=== PATIENT | male | born 1950 | race Caucasian/White ===

== ENCOUNTER 2016-12-09 06:33 | Emergency (ER) | payer BC ==
[2016-12-09 07:42] LABS: Basophils % (A) 1 %; CH 28.6; Eosinophils # (A) 0.1 k/uL (0-0.7); Eosinophils % (A) 2 %; HCT 34.1 % (39.0-53.0); HDW 3.45; HGB 11.4 gm/dL (13.0-17.5); Luc # (Auto) 0.17; Luc % (Auto) 3; Lymphocytes # (A) 0.4 k/uL (1.0-4.8); Lymphocytes % (A) 9 %; MCH 28.3 pg (25.0-35.0); MCHC 33.3 g/dL (31.0-37.0); MCV 84.8 fL (80.0-100.0); Mean Platelet Volume 6.9; Monocytes # (A) 0.6 k/uL (0-1.0); Monocytes % (A) 12 %; Neutrophils # (A) 3.5 k/uL (1.3-7.7); Neutrophils % (A) 73 %; Poikilocytosis Slight; RBC 4.02 m/uL (4.30-5.90); RDW 15.2 % (11.5-15.5); WBC 4.8 k/uL (3.8-10.6); WBC (Perox) 5.06
[2016-12-09] MEDS ORDERED: RX INFO: IV CONTRAST WAS GIVEN 1 EACH MISC MISCELLANE PRN (07:45)
[2016-12-09 07:51] LABS: ALT 44 U/L (21-72); AST 49 U/L (17-59); Alkaline Phosphatase 94 U/L (38-126); Anion Gap 13 mmol/L; Blood Urea Nitrogen 23 mg/dL (9-20); Calcium 12.2 mg/dL (8.4-10.2); Carbon Dioxide 25 mmol/L (22-30); Chloride 101 mmol/L (98-107); Glucose 114 mg/dL (74-99); Non-African American GFR(MDRD) >60 (>60 ml/min/1.73 sqM); Potassium 4.3 mmol/L (3.5-5.1); Sodium 139 mmol/L (137-145); Total Protein 6.7 g/dL (6.3-8.2)
[2016-12-09 07:55] LABS: INR 1.3 (<1.1); Prothrombin Time 12.6 sec (9.0-12.0)
[2016-12-09 08:01] LABS: Creatine Kinase 83 U/L (55-170)
[2016-12-09] MEDS ORDERED: SODIUM CHLORIDE 0.9% 1,000 ML IV STA (08:06)
--- NOTE | 2016-12-09 08:10 | ED ---
General Adult HPI - General Chief complaint: Shortness of Breath Stated complaint: Abnormal Labs/Sent by Time Seen by Provider: 12/09/16 07:44 Source: patient, RN notes reviewed, old records reviewed Mode of arrival: ambulatory Limitations: no limitations - History of Present Illness Initial comments: This is a 66-year-old male here for evaluation. Patient posteriorly for evaluation of abnormal lab tests. Patient does have history of asthma, mild obesity no history of DVT. Patient states he thinks his blood clotting level was elevated. His doctor. Patient denies chest pain denies calf pain denies lower leg pain. No travel history. No other complaints - Related Data Home Medications Medication Instructions Recorded Confirmed Budesonide/Formoterol Fumarate 2 puff INHALATION RT-BID 01/21/15 12/09/16 [Symbicort 160-4.5 Mcg Inhaler] Multivitamin [Men's Multi-Vitamin] 1 tab PO DAILY 01/21/15 12/09/16 L.acidoph,Paracasei, B.lactis 1 cap PO DAILY 07/26/16 12/09/16 [Probiotic] Tiotropium 18 Mcg/Puff [Spiriva] 1 puff INHALATION RT-DAILY 07/26/16 12/09/16 Previous Rx's Medication Instructions Recorded Aspirin 325 mg PO DAILY #30 tab 07/28/16 Atorvastatin [Lipitor] 80 mg PO HS #30 tab 07/28/16 Clopidogrel [Plavix] 75 mg PO DAILY #30 tab 07/28/16 Metoprolol Tartrate [Lopressor] 25 mg PO BID #60 tab 07/28/16 Nitroglycerin Sl Tabs [Nitrostat] 0.4 mg SUBLINGUAL Q5M PRN #25 tab 07/28/16 Allergies Allergy/AdvReac Type Severity Reaction Status Date / Time bacitracin [From Cortisporin] Allergy Anaphylaxis Verified 12/09/16 07:37 bacitracin zinc Allergy Anaphylaxis Verified 12/09/16 07:37 [From Cortisporin] hydrocortisone Allergy Swelling Verified 12/09/16 07:37 [From Cortisporin] neomycin [From Cortisporin] Allergy Swelling Verified 12/09/16 07:37 neomycin sulfate Allergy Swelling Verified 12/09/16 07:37 [From Cortisporin] polymyxin B Allergy Swelling Verified 12/09/16 07:37 [From Cortisporin] polymyxin B sulfate Allergy Swelling Verified 12/09/16 07:37 [From Cortisporin] sulfamethoxazole Allergy Unknown Verified 12/09/16 07:37 [From Bactrim] trimethoprim [From Bactrim] Allergy Unknown Verified 12/09/16 07:37 Review of Systems ROS Statement: Those systems with pertinent positive or pertinent negative responses have been documented in the HPI. ROS Other: All systems not noted in ROS Statement are negative. Past Medical History Past Medical History: Asthma, Sleep Apnea/CPAP/BIPAP Additional Past Medical History / Comment(s): leaking heart valve History of Any Multi-Drug Resistant Organisms: None Reported Past Surgical History: Ear Surgery, Heart Catheterization, Heart Catheterization With Stent, Tonsillectomy Past Anesthesia/Blood Transfusion Reactions: No Reported Reaction Past Psychological History: No Psychological Hx Reported Smoking Status: Former smoker Past Alcohol Use History: None Reported Past Drug Use History: None Reported - Past Family History Father Additional Family Medical History / Comment(s): from [facility] Mother Family Medical History: Cancer Additional Family Medical History / Comment(s): breast, bone, and brain CA, heart attack General Exam Limitations: no limitations General appearance: alert, in no apparent distress Head exam: Present: atraumatic, normocephalic, normal inspection Eye exam: Present: normal appearance, PERRL, EOMI. Absent: scleral icterus, conjunctival injection, periorbital swelling ENT exam: Present: normal exam, mucous membranes moist Neck exam: Present: normal inspection. Absent: tenderness, meningismus, lymphadenopathy Respiratory exam: Present: normal lung sounds bilaterally. Absent: respiratory distress, wheezes, rales, rhonchi, stridor Cardiovascular Exam: Present: regular rate, normal rhythm, normal heart sounds. Absent: systolic murmur, diastolic murmur, rubs, gallop, clicks GI/Abdominal exam: Present: soft, normal bowel sounds. Absent: distended, tenderness, guarding, rebound, rigid Extremities exam: Present: normal inspection, full ROM, normal capillary refill. Absent: tenderness, pedal edema, joint swelling, calf tenderness Back exam: Present: normal inspection Neurological exam: Present: alert, oriented X3, CN II-XII intact Psychiatric exam: Present: normal affect, normal mood Skin exam: Present: warm, dry, intact, normal color. Absent: rash Course Vital Signs 12/09/16 12/09/16 06:49 07:16 Temperature 98.1 F Pulse Rate 98 93 Respiratory 20 16 Rate Blood Pressure 148/70 121/66 O2 Sat by Pulse 97 96 Oximetry - Reevaluation(s) Reevaluation #1: 12/09/16 08:09 Patient is without complaint of shortness of breath chest pain or leg pain EKG Findings - EKG Comments: EKG Findings:: EKG shows normal sinus rhythm rate of 91, NE 132, QRS 80, QTC 423 Medical Decision Making - Medical Decision Making 67 mL the ER for evaluation. Patient has no complaints and femoral abscess, elevated d-dimer, CT negative for PE, patient will be discharged home - Lab Data Result diagrams: 12/09/16 07:05 12/09/16 07:05 Lab Results 12/09/16 12/09/16 12/09/16 Range/Units 07:05 07:05 07:05 WBC (3.8-10.6) k/uL RBC (4.30-5.90) m/uL Hgb (13.0-17.5) gm/dL Hct (39.0-53.0) % MCV (80.0-100.0) fL MCH (25.0-35.0) pg MCHC (31.0-37.0) g/dL RDW (11.5-15.5) % Plt Count (150-450) k/uL Neutrophils % % Lymphocytes % % Monocytes % % Eosinophils % % Basophils % % Neutrophils # (1.3-7.7) k/uL Lymphocytes # (1.0-4.8) k/uL Monocytes # (0-1.0) k/uL Eosinophils # (0-0.7) k/uL Basophils # (0-0.2) k/uL Poikilocytosis PT 12.6 H (9.0-12.0) sec INR 1.3 (<1.1) APTT 24.0 (22.0-30.0) sec D-Dimer 1.01 H (<0.60) mg/L FEU Sodium (137-145) mmol/L Potassium (3.5-5.1) mmol/L Chloride (98-107) mmol/L Carbon Dioxide (22-30) mmol/L Anion Gap mmol/L BUN (9-20) mg/dL Creatinine (0.66-1.25) mg/dL Est GFR (MDRD) Af Amer (>60 ml/min/1.73 sqM) Est GFR (MDRD) Non-Af (>60 ml/min/1.73 sqM) Glucose (74-99) mg/dL Calcium (8.4-10.2) mg/dL Total Bilirubin (0.2-1.3) mg/dL AST (17-59) U/L ALT (21-72) U/L Alkaline Phosphatase (38-126) U/L Total Creatine Kinase 83 (55-170) U/L CK-MB (CK-2) 0.9 (0.0-2.4) ng/mL CK-MB (CK-2) Rel Index 1.1 Troponin I <0.012 (0.000-0.034) ng/mL NT-Pro-B Natriuret Pep 232 pg/mL Total Protein (6.3-8.2) g/dL Albumin (3.5-5.0) g/dL 12/09/16 12/09/16 Range/Units 07:05 07:05 WBC 4.8 (3.8-10.6) k/uL RBC 4.02 L (4.30-5.90) m/uL Hgb 11.4 L (13.0-17.5) gm/dL Hct 34.1 L (39.0-53.0) % MCV 84.8 (80.0-100.0) fL MCH 28.3 (25.0-35.0) pg MCHC 33.3 (31.0-37.0) g/dL RDW 15.2 (11.5-15.5) % Plt Count 232 (150-450) k/uL Neutrophils % 73 % Lymphocytes % 9 % Monocytes % 12 % Eosinophils % 2 % Basophils % 1 % Neutrophils # 3.5 (1.3-7.7) k/uL Lymphocytes # 0.4 L (1.0-4.8) k/uL Monocytes # 0.6 (0-1.0) k/uL Eosinophils # 0.1 (0-0.7) k/uL Basophils # 0.0 (0-0.2) k/uL Poikilocytosis Slight PT (9.0-12.0) sec INR (<1.1) APTT (22.0-30.0) sec D-Dimer (<0.60) mg/L FEU Sodium 139 (137-145) mmol/L Potassium 4.3 (3.5-5.1) mmol/L Chloride 101 (98-107) mmol/L Carbon Dioxide 25 (22-30) mmol/L Anion Gap 13 mmol/L BUN 23 H (9-20) mg/dL Creatinine 1.12 (0.66-1.25) mg/dL Est GFR (MDRD) Af Amer >60 (>60 ml/min/1.73 sqM) Est GFR (MDRD) Non-Af >60 (>60 ml/min/1.73 sqM) Glucose 114 H (74-99) mg/dL Calcium 12.2 H (8.4-10.2) mg/dL Total Bilirubin 1.0 (0.2-1.3) mg/dL AST 49 (17-59) U/L ALT 44 (21-72) U/L Alkaline Phosphatase 94 (38-126) U/L Total Creatine Kinase (55-170) U/L CK-MB (CK-2) (0.0-2.4) ng/mL CK-MB (CK-2) Rel Index Troponin I (0.000-0.034) ng/mL NT-Pro-B Natriuret Pep pg/mL Total Protein 6.7 (6.3-8.2) g/dL Albumin 3.7 (3.5-5.0) g/dL - Radiology Data Radiology results: report reviewed (CTA negative for PE), image reviewed Disposition Clinical Impression: Abnormal laboratory test, Elevated d-dimer Disposition: HOME SELF-CARE Condition: Good Instructions: Normal Exam (ED) Referrals: Андрей Lino MD [Primary Care Provider] - 1-2 days
[2016-12-09 08:14] LABS: Creatine Kinase MB 0.9 ng/mL (0.0-2.4); Troponin I <0.012 ng/mL (0.000-0.034)
--- NOTE | 2016-12-09 08:19 | XR ---
EXAMINATION TYPE: XR chest 2V DATE OF EXAM: 12/09/2016 7:49 AM COMPARISON: Prior chest x-ray 26 July 2016 HISTORY: Difficulty breathing TECHNIQUE: Frontal and lateral views of the chest are obtained. FINDINGS: There are overlying cardiac leads. Exam is stable. Interstitium is mildly increased. There are prominent lung volumes. Cardiomediastinal silhouette, pulmonary vascularity and myra are within normal limits. IMPRESSION: Interstitial lung disease, correlate for possible interstitial edema.
--- NOTE | 2016-12-09 08:42 | CT ---
EXAMINATION TYPE: CT angio chest DATE OF EXAM: 12/09/2016 8:28 AM COMPARISON: 07/26/2016 HISTORY: SOB for a few months CT DLP: 701 mGycm Automated exposure control for dose reduction was used. CONTRAST: CTA scan of the thorax is performed with IV Contrast, patient injected with 74 mL of Omnipaque 350, p ulmonary embolism protocol. . FINDINGS: LUNGS: Subsegmental consolidation at both lung bases most typical of atelectasis. No pleural effusion . Underlying COPD noted. There is no pneumothorax. Calcified granuloma within the left upper lobe and right lower lobe posteriorly. MEDIASTINUM: Aorta of normal caliber. There is suboptimal enhancement of the pulmonary arteries. No c entral pulmonary embolism. Calcified lymph nodes in the hilum are noted and there is coronary artery calcification and cardiomegaly. Ascending aorta measures 3.8 cm and appears stable from previous. Tin y pericardial effusion. OTHER: Hypertrophic and degenerative change of the spine noted. Small hiatal hernia noted. Splenic g ranuloma noted. IMPRESSION: LIMITED EXAM DUE TO SUBOPTIMAL ENHANCEMENT OF PULMONARY ARTERIES. NO CENTRAL PULMONARY EMBOLUS.
[2016-12-09 09:22] VITALS: RESP 20
--- NOTE | 2016-12-09 10:11 | US ---
EXAMINATION TYPE: US venous doppler duplex LE BI DATE OF EXAM: 12/09/2016 9:46 AM COMPARISON: CT angiogram of the chest same date CLINICAL HISTORY: Pain. Elevated labs SIDE PERFORMED: Bilateral VESSELS IMAGED: External Iliac Vein (EIV) Common Femoral Vein Deep Femoral Vein Greater Saphenous Vein * Femoral Vein Popliteal Vein Proximal Calf Veins (* superficial vessels) Grayscale, color Doppler, spectral Doppler imaging performed of the deep veins of the lower extremiti es from the groin to the knee TECHNOLOGIST IMPRESSION: wnl Right Leg: Negative for DVT Left Leg: Negative for DVT Multiple enlarged hypoechoic areas with internal echoes, some internal flow see, question nodes, in l eft groin, superior to vessels.Largest measures 5.0 x 4.4 x 2.6 cm. Note is made on previous CT of splenic enlargement. IMPRESSION: No evident deep venous thrombosis. Splenic enlargement, enlarged left groin lymph nodes, correlate for possible lymphoma, leukemia, metastatic disease. Report related to Natalia telephonically 09 December 2016 at 1005 hours in the emergency department
[2016-12-09 10:45] VITALS: BP 113/70; PULSE 87; TEMP 97
== END 2016-12-09 10:15 | disposition home or self-care (01) ==
LOC: EC 06:33
DX: R79.1 Abnormal coagulation profile (principal); Z79.51 Long term (current) use of inhaled steroids; Z79.899 Other long term (current) drug therapy; Z88.2 Allergy status to sulfonamides; Z88.8 Allergy status to other drugs, medicaments and biological substances; J45.909 Unspecified asthma, uncomplicated; G47.30 Sleep apnea, unspecified; Z87.891 Personal history of nicotine dependence
CPT/HCPCS: 36415; 93005; 85379; 83880; 80053; 82550; 82553; 84484; 85025; 85610; 85730; 71020; 93970; 71275; 96360; 96361; 99285; Q9967

== ENCOUNTER → 2016-12-15 | Outpatient (CLI) | payer BC ==
--- NOTE | 2016-12-15 16:47 | CT ---
EXAMINATION TYPE: CT angio chest DATE OF EXAM: 12/15/2016 4:35 PM COMPARISON: CTA chest December 09, 2016 HISTORY: pt states of SOB and weakness. Hx of stents. CT DLP: 1258.8 mGycm. Automated Exposure Control for Dose Reduction was Utilized. CONTRAST: CTA scan of the thorax is performed without and with IV Contrast, patient injected with 70 mL of Omni paque 350, pulmonary embolism protocol. MIP Images are created on CT scanner and reviewed. FINDINGS: LUNGS: Dependent atelectasis is seen in both lower lobes. No suspicious noncalcified parenchymal nod ule or mass is present bilaterally. Some calcified nodules in the medial left lung base are redemonst rated. There is no pleural effusion or pneumothorax seen bilaterally. The tracheobronchial tree is p atent. Mild underlying emphysematous change is felt redemonstrated. MEDIASTINUM: There is once again suboptimal central bolus without large saddle pulmonary embolism, sm aller segmental subsegmental PE cannot be excluded on this exam. Fairly equal contrast is seen in rig ht and left heart systems. There are no greater than 1 cm noncalcified hilar or mediastinal lymph no miles. There is redemonstration of prominent calcified subcarinal lymph nodes. There are additional mar cified subcentimeter left hilar and infrahilar as well as distal right hilar lymph nodes redemonstrat ed. No cardiomegaly or pericardial effusion is seen. Main pulmonary artery measures 2.3 cm diameter on axial image 53. Adjacent ascending aorta measures 3.7 cm in diameter. Coronary artery calcificatio n and/or stents is redemonstrated. OTHER: There is occasional calcification in the spleen. Multilevel spurring in the spine is present. IMPRESSION: Similar to the prior exam suboptimal study without large central pulmonary embolism, smal ler segmental PE cannot be excluded on this exam. There is mild emphysematous change with evidence of old granulomatous disease. There is ectasia/mild aneurysmal change of the ascending aorta redemonstr ated felt stable. No new acute pulmonary process is evident.
== END | disposition home or self-care (01) ==
LOC: RADCTMAIN 15:29
PROVIDERS: ATTEND Nurse Practitioner Family
DX: J43.9 Emphysema, unspecified (principal)
CPT/HCPCS: 71275; Q9967

== ENCOUNTER 2016-12-25 23:26 | Observation (INO) | payer BC, MEDICARE ==
[2016-12-25] MEDS ORDERED: NITROGLYCERIN SL TABS 0.4 MG TAB SUBLINGUAL STA ×3 (23:45)
[2016-12-25] MEDS ORDERED: ASPIRIN 81 MG CHEW PO STA (23:45)
--- NOTE | 2016-12-25 23:57 | ED ---
General Adult HPI - General Chief complaint: Chest Pain Stated complaint: chest pain Time Seen by Provider: 12/25/16 23:42 Source: patient, RN notes reviewed Mode of arrival: ambulatory Limitations: no limitations - History of Present Illness Initial comments: Patient is a pleasant 66-year-old male presenting to the emergency Department with complaints of chest discomfort onset was this afternoon. Symptoms have been waxing and waning. Discomfort became more severe prior to arrival. Discomfort was 7/10 and improved to 5/10 following one nitroglycerin. Discomfort is without radiation however patient does have some tingling of his left fingers. Patient does have a some associated dyspnea. Patient was diaphoretic prior to arrival. Patient did have somewhat similar symptoms previously associated with stent placement. - Related Data Home Medications Medication Instructions Recorded Confirmed Budesonide/Formoterol Fumarate 2 puff INHALATION RT-BID 01/21/15 12/25/16 [Symbicort 160-4.5 Mcg Inhaler] Multivitamin [Men's Multi-Vitamin] 1 tab PO DAILY 01/21/15 12/25/16 L.acidoph,Paracasei, B.lactis 1 cap PO DAILY 07/26/16 12/25/16 [Probiotic] Tiotropium 18 Mcg/Puff [Spiriva] 1 puff INHALATION RT-DAILY 07/26/16 12/25/16 Previous Rx's Medication Instructions Recorded Aspirin 325 mg PO DAILY #30 tab 07/28/16 Atorvastatin [Lipitor] 80 mg PO HS #30 tab 07/28/16 Clopidogrel [Plavix] 75 mg PO DAILY #30 tab 07/28/16 Metoprolol Tartrate [Lopressor] 25 mg PO BID #60 tab 07/28/16 Nitroglycerin Sl Tabs [Nitrostat] 0.4 mg SUBLINGUAL Q5M PRN #25 tab 07/28/16 Allergies Allergy/AdvReac Type Severity Reaction Status Date / Time bacitracin [From Cortisporin] Allergy Anaphylaxis Verified 12/25/16 23:31 bacitracin zinc Allergy Anaphylaxis Verified 12/25/16 23:31 [From Cortisporin] hydrocortisone Allergy Swelling Verified 12/25/16 23:31 [From Cortisporin] neomycin [From Cortisporin] Allergy Swelling Verified 12/25/16 23:31 neomycin sulfate Allergy Swelling Verified 12/25/16 23:31 [From Cortisporin] polymyxin B Allergy Swelling Verified 12/25/16 23:31 [From Cortisporin] polymyxin B sulfate Allergy Swelling Verified 12/25/16 23:31 [From Cortisporin] sulfamethoxazole Allergy Unknown Verified 12/25/16 23:31 [From Bactrim] trimethoprim [From Bactrim] Allergy Unknown Verified 12/25/16 23:31 Review of Systems ROS Statement: Those systems with pertinent positive or pertinent negative responses have been documented in the HPI. ROS Other: All systems not noted in ROS Statement are negative. Constitutional: Denies: fever Eyes: Denies: eye pain ENT: Denies: ear pain Respiratory: Reports: dyspnea Cardiovascular: Reports: chest pain Endocrine: Denies: fatigue Gastrointestinal: Denies: abdominal pain Genitourinary: Denies: dysuria Musculoskeletal: Denies: back pain Skin: Denies: rash Neurological: Denies: weakness Past Medical History Past Medical History: Asthma, Sleep Apnea/CPAP/BIPAP Additional Past Medical History / Comment(s): leaking heart valve History of Any Multi-Drug Resistant Organisms: None Reported Past Surgical History: Ear Surgery, Heart Catheterization, Heart Catheterization With Stent, Tonsillectomy Past Anesthesia/Blood Transfusion Reactions: No Reported Reaction Past Psychological History: No Psychological Hx Reported Smoking Status: Former smoker Past Alcohol Use History: None Reported Past Drug Use History: None Reported - Past Family History Father Additional Family Medical History / Comment(s): [place] [facility] [place] Mother Family Medical History: Cancer Additional Family Medical History / Comment(s): breast, bone, and brain CA, heart attack General Exam Limitations: no limitations General appearance: alert, in no apparent distress Head exam: Present: atraumatic Eye exam: Present: normal appearance, PERRL ENT exam: Present: normal oropharynx Neck exam: Present: normal inspection Respiratory exam: Present: normal lung sounds bilaterally. Absent: chest wall tenderness Cardiovascular Exam: Present: regular rate, normal rhythm, systolic murmur Expanded Peripheral pulses: 2+: Radial (R), Radial (L), Posterior Tibialis (R), Posterior Tibialis (L) GI/Abdominal exam: Present: soft. Absent: distended, tenderness, guarding Extremities exam: Present: normal inspection. Absent: pedal edema, calf tenderness Neurological exam: Present: alert Psychiatric exam: Present: normal affect, normal mood Skin exam: Absent: rash Course Vital Signs 12/25/16 12/26/16 12/26/16 23:29 00:01 00:14 Temperature 97.9 F Pulse Rate 99 92 106 H Respiratory 22 18 20 Rate Blood Pressure 127/73 97/60 88/50 O2 Sat by Pulse 95 97 95 Oximetry EKG Findings - EKG Comments: EKG Findings:: Sinus rhythm and 92. MI 126. QRS 84. QT 348. QTC 4:30. Normal axis. Normal QRS. No acute ST change. Medical Decision Making - Medical Decision Making Patient reevaluated and resting comfortably in bed. Patient now symptom-free. Patient updated on results and plan. Case was discussed in detail with Dr. ashford, who will admit for Dr. Lino. Admission orders placed. IV heparin started. Consult will be placed for cardiology. - Lab Data Result diagrams: 12/26/16 00:01 12/26/16 00:01 Lab Results 12/26/16 12/26/16 12/26/16 Range/Units 00:01 00:01 00:01 WBC 5.2 (3.8-10.6) k/uL RBC 4.30 (4.30-5.90) m/uL Hgb 12.1 L (13.0-17.5) gm/dL Hct 36.3 L (39.0-53.0) % MCV 84.4 (80.0-100.0) fL MCH 28.1 (25.0-35.0) pg MCHC 33.3 (31.0-37.0) g/dL RDW 15.0 (11.5-15.5) % Plt Count 194 (150-450) k/uL Neutrophils % 81 % Lymphocytes % 6 % Monocytes % 7 % Eosinophils % 2 % Basophils % 1 % Neutrophils # 4.2 (1.3-7.7) k/uL Lymphocytes # 0.3 L (1.0-4.8) k/uL Monocytes # 0.4 (0-1.0) k/uL Eosinophils # 0.1 (0-0.7) k/uL Basophils # 0.0 (0-0.2) k/uL Poikilocytosis Slight PT (9.0-12.0) sec INR (<1.1) APTT (22.0-30.0) sec Sodium 138 (137-145) mmol/L Potassium 3.7 (3.5-5.1) mmol/L Chloride 100 (98-107) mmol/L Carbon Dioxide 25 (22-30) mmol/L Anion Gap 13 mmol/L BUN 31 H (9-20) mg/dL Creatinine 1.40 H (0.66-1.25) mg/dL Est GFR (MDRD) Af Amer >60 (>60 ml/min/1.73 sqM) Est GFR (MDRD) Non-Af 51 (>60 ml/min/1.73 sqM) Glucose 110 H (74-99) mg/dL Calcium 12.2 H (8.4-10.2) mg/dL Magnesium 1.9 (1.6-2.3) mg/dL Total Bilirubin 0.9 (0.2-1.3) mg/dL AST 46 (17-59) U/L ALT 43 (21-72) U/L Alkaline Phosphatase 91 (38-126) U/L Total Creatine Kinase 53 L (55-170) U/L CK-MB (CK-2) 1.4 (0.0-2.4) ng/mL CK-MB (CK-2) Rel Index 2.6 Troponin I 0.015 (0.000-0.034) ng/mL Total Protein 6.0 L (6.3-8.2) g/dL Albumin 3.2 L (3.5-5.0) g/dL 12/26/16 Range/Units 00:01 WBC (3.8-10.6) k/uL RBC (4.30-5.90) m/uL Hgb (13.0-17.5) gm/dL Hct (39.0-53.0) % MCV (80.0-100.0) fL MCH (25.0-35.0) pg MCHC (31.0-37.0) g/dL RDW (11.5-15.5) % Plt Count (150-450) k/uL Neutrophils % % Lymphocytes % % Monocytes % % Eosinophils % % Basophils % % Neutrophils # (1.3-7.7) k/uL Lymphocytes # (1.0-4.8) k/uL Monocytes # (0-1.0) k/uL Eosinophils # (0-0.7) k/uL Basophils # (0-0.2) k/uL Poikilocytosis PT 12.5 H (9.0-12.0) sec INR 1.3 (<1.1) APTT 23.6 (22.0-30.0) sec Sodium (137-145) mmol/L Potassium (3.5-5.1) mmol/L Chloride (98-107) mmol/L Carbon Dioxide (22-30) mmol/L Anion Gap mmol/L BUN (9-20) mg/dL Creatinine (0.66-1.25) mg/dL Est GFR (MDRD) Af Amer (>60 ml/min/1.73 sqM) Est GFR (MDRD) Non-Af (>60 ml/min/1.73 sqM) Glucose (74-99) mg/dL Calcium (8.4-10.2) mg/dL Magnesium (1.6-2.3) mg/dL Total Bilirubin (0.2-1.3) mg/dL AST (17-59) U/L ALT (21-72) U/L Alkaline Phosphatase (38-126) U/L Total Creatine Kinase (55-170) U/L CK-MB (CK-2) (0.0-2.4) ng/mL CK-MB (CK-2) Rel Index Troponin I (0.000-0.034) ng/mL Total Protein (6.3-8.2) g/dL Albumin (3.5-5.0) g/dL - Radiology Data Radiology results: image reviewed (Chest x-ray shows no acute process) Critical Care Time Critical Care Time: Yes Total Critical Care Time: 32 Disposition Clinical Impression: Unstable angina pectoris Disposition: ADMITTED IP TO THIS HOSP
[2016-12-26 00:16] LABS: Basophils % (A) 1 %; CH 28.2; CHCM 33.6; Eosinophils # (A) 0.1 k/uL (0-0.7); Eosinophils % (A) 2 %; HCT 36.3 % (39.0-53.0); HGB 12.1 gm/dL (13.0-17.5); Luc % (Auto) 4; Lymphocytes # (A) 0.3 k/uL (1.0-4.8); Lymphocytes % (A) 6 %; MCH 28.1 pg (25.0-35.0); MCHC 33.3 g/dL (31.0-37.0); MCV 84.4 fL (80.0-100.0); Mean Platelet Volume 7.2; Monocytes # (A) 0.4 k/uL (0-1.0); Monocytes % (A) 7 %; Neutrophils # (A) 4.2 k/uL (1.3-7.7); Neutrophils % (A) 81 %; Poikilocytosis Slight; WBC 5.2 k/uL (3.8-10.6); WBC (Perox) 5.01
[2016-12-26 00:26] LABS: INR 1.3 (<1.1); Partial Thromboplastin Time 23.6 sec (22.0-30.0); Prothrombin Time 12.5 sec (9.0-12.0)
--- NOTE | 2016-12-26 00:35 | XR ---
EXAMINATION TYPE: XR chest 2V DATE OF EXAM: 12/26/2016 12:21 AM COMPARISON: 12/09/2016 HISTORY: Chest pain TECHNIQUE: Frontal and lateral views of the chest are obtained. FINDINGS: Stable chronic interstitial lung changes are suggested. There is no focal air space opacity, pleural effusion, or pneumothorax seen. The cardiac silhouette size is within normal limits. Mild degenerative changes in the thoracic spine. IMPRESSION: 1. No acute cardiopulmonary process. 2. Chronic lung changes.
[2016-12-26 00:37] LABS: ALT 43 U/L (21-72); AST 46 U/L (17-59); Alkaline Phosphatase 91 U/L (38-126); Anion Gap 13 mmol/L; Blood Urea Nitrogen 31 mg/dL (9-20); Calcium 12.2 mg/dL (8.4-10.2); Carbon Dioxide 25 mmol/L (22-30); Chloride 100 mmol/L (98-107); Glucose 110 mg/dL (74-99); Magnesium 1.9 mg/dL (1.6-2.3); Non-African American GFR(MDRD) 51 (>60 ml/min/1.73 sqM); Potassium 3.7 mmol/L (3.5-5.1); Sodium 138 mmol/L (137-145); Total Bilirubin 0.9 mg/dL (0.2-1.3)
[2016-12-26 01:01] LABS: Creatine Kinase MB 1.4 ng/mL (0.0-2.4); Troponin I 0.015 ng/mL (0.000-0.034)
[2016-12-26] MEDS ORDERED: HEPARIN SODIUM,PORCINE 5,000 UNIT/ML 1 ML VIAL IV PRN (01:14)
[2016-12-26] MEDS ORDERED: HEPARIN SODIUM,PORCINE 5,000 UNIT/ML 1 ML VIAL IV ONE (01:14)
[2016-12-26] MEDS ORDERED: NITROGLYCERIN SL TABS 0.4 MG TAB SUBLINGUAL PRN (01:14)
[2016-12-26] MEDS ORDERED: HEPARIN SODIUM,PORCINE/D5W PMX 25,000 UNIT in DEXTROSE/WATER 1 500ML.BAG IV SCH (01:15)
[2016-12-26 03:38] VITALS: RESP 18
[2016-12-26 03:44] VITALS: PULSE 100; BMI 42.2
[2016-12-26] MEDS: NITROGLYCERIN OINT 1 INCH/GM PACKET TOPICAL SCH ×3 (03:49→16:35)
[2016-12-26 06:45] LABS: Mean Platelet Volume 7.2
[2016-12-26 07:23] LABS: Creatine Kinase MB 1.1 ng/mL (0.0-2.4); Troponin I 0.026 ng/mL (0.000-0.034)
[2016-12-26] MEDS ORDERED: REGADENOSON 0.4 MG/5 ML SYRINGE IV ONE (08:00)
[2016-12-26] MEDS ORDERED: AMINOPHYLLINE 500 MG/20 ML VIAL IV PRN (08:00)
--- NOTE | 2016-12-26 08:33 | CONS ---
DATE OF CONSULTATION: CHIEF COMPLAINT: Chest pain. Philip is a 66-year-old gentleman with history of coronary artery disease, status post angioplasty of circumflex coronary artery who presented to the hospital complaining of chest pain. His chest discomfort is sharp, precordial without definite radiation to neck, arm or back, unassociated with diaphoresis and unrelated to exertion. EKG does not reveal ischemic changes. His chest x-ray was negative. I reviewed his prior cardiac catheterization and angioplasty that were done by Dr. Cohen. At the time of my evaluation, patient is comfortable at rest and is free of symptoms. Past medical history is significant for coronary artery disease, status post angioplasty, hypertension, dyslipidemia, COPD. Current medications include DuoNeb, Lopressor 25 b.i.d., Nitrostat, Spiriva, multivitamin, Plavix, Symbicort, Lipitor and aspirin. ALLERGIES: THERE ARE MULTIPLE DRUG ALLERGIES INCLUDING BACTRIM AND CORTISPORIN. FAMILY HISTORY: Negative for premature coronary artery disease. SOCIAL HISTORY: Negative for smoking, EtOH abuse, or drug abuse. REVIEW OF SYSTEMS: HEENT: Unremarkable. CARDIAC: As described above. RESPIRATORY: Negative. GI: Negative. GENITOURINARY: Negative. ALLERGY/IMMUNOLOGY: Negative. MUSCULOSKELETAL: Significant for arthritis. PSYCHOSOCIAL: Negative. ENDOCRINE: Negative. DERMATOLOGY: Negative. CONSTITUTIONAL: Negative. ONCOLOGICAL: Negative. The rest of the system review is not relevant. On exam, comfortable at rest. Vital signs are stable. There is no jugular venous distention. Carotid upstroke is normal. There is no bruit. Chest exam reveals good air entry bilaterally. Heart exam reveals first and second heart sounds. No gallop. No murmur, no rub. Abdomen is soft, nontender. Exam of extremities did not reveal edema. Peripheral pulses are felt. Labs show that the BUN is 31, creatinine is 1.4. Two sets of tropes are negative. Hemoglobin is normal at 12.1. ASSESSMENT: 1. Chest pain. 2. Coronary artery disease, status post angioplasty. 3. Hypertension. 4. Dyslipidemia. PLAN: Patient's chest discomfort is atypical and probably noncardiac in origin. His management is going to be in the form of a stress test today. If this is abnormal, he will undergo cardiac catheterization. If this is normal, he will be discharged home and outpatient follow-up arranged with his primary machinist 2nd shift.
[2016-12-26] MEDS ORDERED: METOPROLOL TARTRATE 25 MG TAB PO SCH (09:00)
[2016-12-26] MEDS ORDERED: CLOPIDOGREL 75 MG TAB PO SCH (09:00)
--- NOTE | 2016-12-26 10:56 | ECHOF ---
Referral Reason: MEASUREMENTS -------- HEIGHT: 170.2 cm WEIGHT: 122.0 kg BP: 95/45 RVIDd: 3.6 cm (< 3.3) IVSd: 1.5 cm (0.6 - 1.1) LVIDd: 4.5 cm (3.9 - 5.3) LVPWd: 1.5 cm (0.6 - 1.1) IVSs: 1.9 cm LVIDs: 2.8 cm LVPWs: 1.4 cm LA Diam: 3.5 cm (2.7 - 3.8) LAESV Index (A-L): 26.24 ml/m Ao Diam: 3.7 cm (2.0 - 3.7) AV Cusp: 1.7 cm (1.5 - 2.6) MV EXCURSION: 13.883 mm (> 18.000) MV EF SLOPE: 21 mm/s (70 - 150) EPSS: 0.7 cm AV maxP.56 mmHg AV meanP.01 mmHg AR PHT: 597 ms RAP: 5.00 mmHg RVSP: 27.81 mmHg FINDINGS -------- Sinus rhythm. This was a technically difficult study with suboptimal views. The left ventricular size is normal. There is moderate concentric left ventricular hypertrophy. Overall left ventricular systolic function is normal with, an EF between 60 - 65 %. The right ventricle is mildly enlarged. Normal LA size by volume 22+/-6 ml/m2. The right atrium is normal in size. 1.5mg of Definity was utilized for enhancement of images Aortic valve is trileaflet and is moderately thickened. There is moderate aortic regurgitation. There is moderate aortic stenosis present. Peak/mean gradient across the Aortic Valve is 35.56mmHg / 19.01mmHg. Mild mitral annular calcification present. Mild tricuspid regurgitation present. Right ventricular systolic pressure is normal at < 35 mmHg. The pulmonic valve was not well visualized. The aortic root is dilated measuring 3.7cm. There is no pericardial effusion. CONCLUSIONS -------- 1. Sinus rhythm. 2. There is moderate aortic regurgitation. 3. There is moderate aortic stenosis present. 4. Peak/mean gradient across the Aortic Valve is 35.56mmHg / 19.01mmHg. 5. Mild mitral annular calcification present. 6. Mild tricuspid regurgitation present. 7. Right ventricular systolic pressure is normal at < 35 mmHg. 8. The pulmonic valve was not well visualized. 9. The aortic root is dilated measuring 3.7cm. 10. There is no pericardial effusion. 11. This was a technically difficult study with suboptimal views. 12. The left ventricular size is normal. 13. There is moderate concentric left ventricular hypertrophy. 14. Overall left ventricular systolic function is normal with, an EF between 60 - 65 %. 15. The right ventricle is mildly enlarged. 16. Normal LA size by volume 22+/-6 ml/m2. 17. 1.5mg of Definity was utilized for enhancement of images 18. Aortic valve is trileaflet and is moderately thickened. SAP TECHNICAL ARCHITECT: Sallie Carr RDCS
--- NOTE | 2016-12-26 13:24 | NM ---
EXAMINATION TYPE: NM stress lexiscan cardiolite DATE OF EXAM: 12/26/2016 12:51 PM COMPARISON: 01/22/2015 HISTORY: Chest pain TECHNIQUE: After the intravenous administration of 10.9 mCi Tc 99m Sestamibi - Cardiolite resting SP ECT images acquired 62 minutes post injection. The patient received 0.4mg Lexiscan, 27.5 mCi Tc 99m Sestamibi - Stress images obtained [address] injection FINDINGS: Review of stress and rest SPECT images demonstrates no distinct perfusion abnormality. Gated analysi s shows normal wall motion with an estimated left ventricular ejection fraction of 65 %. IMPRESSION: No scintigraphic evidence for reversible ischemia.
[2016-12-26 13:43] VITALS: TEMP 97.6
--- NOTE | 2016-12-26 13:58 | EST ---
DATE OF SERVICE: 12/26/2016 AGE: 66Y SEX: M HT: 67" WT: 269 lbs. Protocol Fred: Other: Lexiscan Cardiolite Stage: Dur. of Exercise: *Heart Rate Blood Pressure *Rest: 93 Rest: 165/49 * *Max. Achieved: 118 Maximum BP: 165/49 85% PMHR: 100% PMHR: *METS: INDICATION OF THE STUDY: Chest pain. MEDICATIONS: STRESS DATA: Pretesting physical examination showed a heart rate of 93, pressure is 165/49 mmHg. Baseline EKG showed sinus rhythm. 0.4 mg of Lexiscan was given to the patient over 15 seconds per protocol. Max heart rate was 118 beats per minute and maximum blood pressure was 165/49 mmHg. Clinically, the patient did not have any symptoms and the EKG did not show any ischemic changes. CONCLUSION: 1. Nondiagnostic electrocardiogram stress test in response to Lexiscan. 2. Please follow up on the Cardiolite portion on a separate report from the radiology department.
[2016-12-26 14:39] LABS: Creatine Kinase MB 0.9 ng/mL (0.0-2.4); Troponin I 0.017 ng/mL (0.000-0.034)
[2016-12-26] MEDS ORDERED: TIOTROPIUM 18 MCG/PUFF INHALER INHALATION SCH (15:00)
--- NOTE | 2016-12-26 17:02 | HP ---
DATE OF ADMISSION: 12/26/2016 PRESENTING COMPLAINT: Chest pain. HISTORY OF PRESENTING COMPLAINT: This is a 66-year-old patient of Dr. Lino whose chronic stable medical conditions include asthma, sleep apnea, coronary artery with stent in July of last year. Patient presented with pressure in the chest and numbness going down the left arm towards the head, some short of breath. No perspiration. It lasted for a while; hence, patient decided to come and diagnosed with unstable angina. REVIEW OF SYSTEMS: CONSTITUTIONAL: None. HEENT: None. RESPIRATORY: As above. CARDIOVASCULAR: As above. GASTROINTESTINAL: None. GENITOURINARY: None. MUSCULOSKELETAL: None. DERMATOLOGICAL: None. HEMATOLOGICAL: None. LYMPHATIC: None. PSYCHIATRY: None. NEUROLOGICAL: None. PAST MEDICAL HISTORY: Asthma, sleep apnea, coronary artery disease. PAST SURGICAL HISTORY: Cardiac cath with stent, tonsillectomy, ear surgery. SOCIAL HISTORY: The patient stopped smoking over 40 years ago. . No alcohol. Family history of breast, bone and brain cancer, heart attacks. HOME MEDICATIONS: 1. Spiriva 1 capsule p.o. daily. 2. Nitrostat 0.4 sublingual q.5 p.r.n. 3. Men's multivitamin 1 tablet p.o. daily. 4. Lopressor 25 mg p.o. b.i.d. 5. Probiotic 1 capsule p.o. daily. 6. DuoNeb q.4 p.r.n. 7. Plavix 75 mg p.o. daily. 8. Symbicort 160/4.5, 2 puffs b.i.d. 9. Lipitor 80 mg q.h.s. 10. Aspirin 325 p.o. daily. ALLERGIES TO BACITRACIN, NEOMYCIN, BACTRIM. On examination, temperature afebrile, pulse 92, respirations 18, blood pressure 123/56, pulse ox 96% on 2 liters. GENERAL APPEARANCE: Obese, BMI of 42.2, lying in bed, not in distress. EYES: Pupils equal. Conjunctivae normal. HEENT: Oral cavity normal. NECK: JVD not raised. Mass not palpable. RESPIRATORY: Effort normal. Lungs are clear. CARDIOVASCULAR: First and second sounds are normal. No edema. ABDOMEN: Soft. Nontender. Liver and spleen not palpable. LYMPHATIC: No lymph nodes palpable in neck or axillae. PSYCHIATRY: Alert and oriented x3. Mood and affect normal. NEUROLOGICAL: Pupils equal. Cranial nerves grossly intact. Power and sensation grossly intact. INVESTIGATIONS: BUN 31, creatinine 1.40, potassium 3.7, hemoglobin 12.1. EKG normal sinus rhythm and nonspecific changes. 2-D echocardiogram, ejection fraction 60 to 65%. ASSESSMENT: 1. Unstable angina, possibly in a patient with known coronary artery disease. 2. Morbid obesity, body mass index of 42.2. 3. Coronary artery disease with prior history of stent. 4. Gastroesophageal reflux disease. 5. Mild persistent asthma. 6. Essential hypertension. PLAN: Patient's home medications are resumed. Patient is put on IV heparin. Cardiology was consulted. Ordered a stress test. Patient's serial cardiac enzymes were ordered.
[2016-12-26 17:21] VITALS: BP 108/69
[2016-12-26] MEDS ORDERED: SYMBICORT 160-4.5 MCG INHALER INHALATION SCH (20:00)
[2016-12-26] MEDS ORDERED: ATORVASTATIN 80 MG TAB PO SCH (21:00)
[2016-12-27] MEDS ORDERED: TIOTROPIUM 18 MCG/PUFF INHALER INHALATION SCH (08:00)
[2016-12-27] MEDS ORDERED: ASPIRIN 325 MG TAB PO SCH (09:00)
--- NOTE | 2016-12-27 11:35 | DS ---
DATE OF ADMISSION: 12/26/2016 DATE OF DISCHARGE: 12/26/2016 FINAL DIAGNOSES: 1. Anterior chest wall pain, possibly musculoskeletal. 2. Morbid obesity, body mass index of 42.2. 3. Coronary artery disease, prior history of stent. 4. Gastroesophageal reflux disease. 5. Mild persistent asthma. 6. Essential hypertension. HOSPITAL COURSE: This patient presented with chest pain. Stress test was negative. Troponins were negative. On exam, lungs are clear. CARDIOVASCULAR: First and second sounds normal. A 2-D echocardiogram shows a EF of 60% to 65%. CONSULTATION: Dr. Sparkle Rogel from cardiology. DISCHARGE MEDICATIONS: 1. Symbicort 160/4.5 two puff b.i.d. 2. Multivitamin 1 tablet p.o. daily. 3. Probiotic 1 capsule p.o. daily. 4. Spiriva 1 capsule p.o. daily. 5. Aspirin 325 daily. 6. Lipitor 80 mg p.o. q.h.s. 7. Plavix 75 mg p.o. daily. 8. Lopressor 25 mg p.o. b.i.d. 9. Nitrostat 0.4 sublingual q.5 p.r.n. 10. DuoNeb q.4 p.r.n. Follow up with Dr. Lino in 2 days. Follow up with his cook soup in one week.
== END 2016-12-26 17:35 | disposition home or self-care (01) ==
LOC: EC 23:26 → 6SEL 12-26 01:14
PROVIDERS: ADMIT Hospitalist; ATTEND Hospitalist
DX: R07.89 Other chest pain (principal); E66.01 Morbid (severe) obesity due to excess calories; Z68.41 Body mass index [BMI] 40.0-44.9, adult; E78.5 Hyperlipidemia, unspecified; G47.30 Sleep apnea, unspecified; I10 Essential (primary) hypertension; I25.10 Atherosclerotic heart disease of native coronary artery without angina pectoris; J44.9 Chronic obstructive pulmonary disease, unspecified; J45.30 Mild persistent asthma, uncomplicated; K21.9 Gastro-esophageal reflux disease without esophagitis; Z79.02 Long term (current) use of antithrombotics/antiplatelets; Z79.82 Long term (current) use of aspirin; Z87.891 Personal history of nicotine dependence; Z95.5 Presence of coronary angioplasty implant and graft; R20.2 Paresthesia of skin; R61 Generalized hyperhidrosis; Z79.51 Long term (current) use of inhaled steroids; Z79.899 Other long term (current) drug therapy; Z88.1 Allergy status to other antibiotic agents; Z88.8 Allergy status to other drugs, medicaments and biological substances
CPT/HCPCS: 36415; 93005; 93017; 93306; 80053; 82550; 82553; 83735; 84484; 85025; 85049; 85610; 85730; 71020; 78452; 99291; 96365; 96376; G0378; A9500; J1644 ×2; Q9957; J2785

== ENCOUNTER 2017-01-02 06:09 | Inpatient (IN) | payer MEDICARE, BC ==
[2017-01-02 06:53] LABS: Basophils % (A) 1 %; CH 28.2; CHCM 34.1; Eosinophils # (A) 0.1 k/uL (0-0.7); Eosinophils % (A) 1 %; HDW 3.63; HGB 12.5 gm/dL (13.0-17.5); Luc # (Auto) 0.19; Luc % (Auto) 4; Lymphocytes # (A) 0.2 k/uL (1.0-4.8); Lymphocytes % (A) 4 %; MCH 28.2 pg (25.0-35.0); MCHC 33.8 g/dL (31.0-37.0); MCV 83.2 fL (80.0-100.0); Mean Platelet Volume 7.9; Monocytes # (A) 0.4 k/uL (0-1.0); Monocytes % (A) 9 %; Neutrophils # (A) 4.1 k/uL (1.3-7.7); Neutrophils % (A) 82 %; Poikilocytosis Slight; RBC 4.44 m/uL (4.30-5.90); RDW 15.5 % (11.5-15.5); WBC 5.1 k/uL (3.8-10.6); WBC (Perox) 4.79
[2017-01-02 07:03] LABS: INR 1.4 (<1.1); Partial Thromboplastin Time 22.2 sec (22.0-30.0); Prothrombin Time 13.8 sec (9.0-12.0)
[2017-01-02 07:04] LABS: ALT 37 U/L (21-72); AST 50 U/L (17-59); Alkaline Phosphatase 88 U/L (38-126); Anion Gap 11 mmol/L; Blood Urea Nitrogen 31 mg/dL (9-20); Carbon Dioxide 26 mmol/L (22-30); Chloride 100 mmol/L (98-107); Glucose 115 mg/dL (74-99); Magnesium 2.1 mg/dL (1.6-2.3); Non-African American GFR(MDRD) >60 (>60 ml/min/1.73 sqM); Potassium 3.9 mmol/L (3.5-5.1); Sodium 137 mmol/L (137-145); Total Bilirubin 1.2 mg/dL (0.2-1.3); Total Protein 6.3 g/dL (6.3-8.2)
[2017-01-02 07:21] LABS: Calcium 14.8 mg/dL (8.4-10.2)
[2017-01-02 07:26] LABS: Creatine Kinase MB 0.8 ng/mL (0.0-2.4); Troponin I 0.024 ng/mL (0.000-0.034)
[2017-01-02] MEDS ORDERED: SODIUM CHLORIDE 0.9% 500 ML IV ONE (07:40)
--- NOTE | 2017-01-02 07:41 | ED ---
Weakness HPI - General Chief complaint: Weakness Stated complaint: weakness Time Seen by Provider: 01/02/17 07:03 Source: patient, EMS Mode of arrival: EMS - History of Present Illness Initial comments: He tripped and fell at home, he was unable to get up and finally with assistance he did get him now complaining about pain and pain in his both knees and pain is both hips, prior to fall he denied any headache no chest pain or shortness of breath no abdominal pain no frequency urgency dysuria he does use a walker inside the house and now he is his wheelchair he tripped over readmitted now is complaining about the pain in the both knees and the pain in the both hips no other complaints - Related Data Home Medications Medication Instructions Recorded Confirmed Budesonide/Formoterol Fumarate 2 puff INHALATION RT-BID 01/21/15 12/26/16 [Symbicort 160-4.5 Mcg Inhaler] Multivitamin [Men's Multi-Vitamin] 1 tab PO DAILY 01/21/15 12/26/16 L.acidoph,Paracasei, B.lactis 1 cap PO DAILY 07/26/16 12/26/16 [Probiotic] Tiotropium 18 Mcg/Puff [Spiriva] 1 cap INHALATION RT-DAILY 07/26/16 12/26/16 Ipratropium-Albuterol Nebulize 3 ml INHALATION RT-Q4H PRN 12/26/16 12/26/16 [Duoneb 0.5 mg-3 mg/3 ml Soln] Previous Rx's Medication Instructions Recorded Aspirin 325 mg PO DAILY #30 tab 07/28/16 Atorvastatin [Lipitor] 80 mg PO HS #30 tab 07/28/16 Clopidogrel [Plavix] 75 mg PO DAILY #30 tab 07/28/16 Metoprolol Tartrate [Lopressor] 25 mg PO BID #60 tab 07/28/16 Nitroglycerin Sl Tabs [Nitrostat] 0.4 mg SUBLINGUAL Q5M PRN #25 tab 07/28/16 Allergies Allergy/AdvReac Type Severity Reaction Status Date / Time bacitracin zinc Allergy Swelling Verified 12/26/16 08:04 [From Cortisporin] neomycin sulfate Allergy Swelling Verified 12/26/16 08:04 [From Cortisporin] polymyxin B sulfate Allergy Swelling Verified 12/26/16 08:04 [From Cortisporin] sulfamethoxazole Allergy Rash/Hives Verified 12/26/16 08:04 [From Bactrim] trimethoprim [From Bactrim] Allergy Rash/Hives Verified 12/26/16 08:04 Review of Systems ROS Statement: Those systems with pertinent positive or pertinent negative responses have been documented in the HPI. ROS Other: All systems not noted in ROS Statement are negative. Past Medical History Past Medical History: Asthma, Myocardial Infarction (PR), Sleep Apnea/CPAP/BIPAP Additional Past Medical History / Comment(s): leaking heart valve History of Any Multi-Drug Resistant Organisms: None Reported Past Surgical History: Ear Surgery, Heart Catheterization, Heart Catheterization With Stent, Tonsillectomy Past Anesthesia/Blood Transfusion Reactions: No Reported Reaction Date of Last Stent Placement:: 07/2016 Past Psychological History: No Psychological Hx Reported Smoking Status: Former smoker Past Alcohol Use History: None Reported Past Drug Use History: None Reported - Past Family History Father Additional Family Medical History / Comment(s[facility] Mother Family Medical History: Cancer Additional Family Medical History / Comment(s): breast, bone, and brain CA, heart attack General Exam - General Exam Comments Initial Comments: General: The patient is awake and alert, in no distress, and does not appear acutely ill. Looks tired Skin: Skin is warm and dry and no rashes or lesions are noted. Eye: Pupils are equal, round and reactive to light, extra-ocular movements are intact; there is normal conjunctiva bilaterally. Ears, nose, mouth and throat: There are moist mucous membranes and no oral lesions. Neck: The neck is supple, there is no tenderness or JVD. Cardiovascular: There is a regular rate and rhythm. No murmur, rub or gallop is appreciated. Respiratory: To auscultation bilateral, crease breath sounds bilateral Gastrointestinal: Soft, non-distended, non-tender abdomen without masses or organomegaly noted. There is no rebound or guarding present. Bowel sounds are unremarkable. Back: There is no tenderness to palpation in the midline. There is no obvious deformity. Musculoskeletal: Both knees have erythema or tibial tuberosity, mild lymphedema noticed the ankles, is also tender over her greater trochanter on the left side him range of motion is decreased because of the pain Neurological: CN II-XII intact, Cranial nerves III through XII are intact. There are no obvious motor or sensory deficits. Coordination appears grossly intact. Speech is normal. Psychiatric: Cooperative, appropriate mood & affect, normal judgment. Course Vital Signs 01/02/17 01/02/17 01/02/17 06:15 07:35 09:06 Temperature 97.6 F Pulse Rate 108 H 101 H 96 Respiratory 18 18 18 Rate Blood Pressure 99/57 127/70 118/68 O2 Sat by Pulse 89 L 100 94 L Oximetry Labs were discussed with him, that included CBC, PT, INR, lactate, calcium of any x-ray hip x-ray the x-ray and hip x-ray are unremarkable chest was quite elevated 14.8 lactate is 3.8, CBC is normal so his INR, considering his elevated calcium and lactate he will be admitted EKG Findings - EKG Comments: EKG Findings:: EKG is sinus tachycardia ventricular rate is 101 KS interval is 126 QRS duration is 86 QT/QTc is 340/47 noticed some T-wave inversion in lead [address] elevation or ST depression noticed in the other EKGs Medical Decision Making - Lab Data Result diagrams: 01/02/17 06:28 01/02/17 06:28 Lab Results 01/02/17 01/02/17 01/02/17 Range/Units 06:28 06:28 06:28 WBC 5.1 (3.8-10.6) k/uL RBC 4.44 (4.30-5.90) m/uL Hgb 12.5 L (13.0-17.5) gm/dL Hct 37.0 L (39.0-53.0) % MCV 83.2 (80.0-100.0) fL MCH 28.2 (25.0-35.0) pg MCHC 33.8 (31.0-37.0) g/dL RDW 15.5 (11.5-15.5) % Plt Count 236 (150-450) k/uL Neutrophils % 82 % Lymphocytes % 4 % Monocytes % 9 % Eosinophils % 1 % Basophils % 1 % Neutrophils # 4.1 (1.3-7.7) k/uL Lymphocytes # 0.2 L (1.0-4.8) k/uL Monocytes # 0.4 (0-1.0) k/uL Eosinophils # 0.1 (0-0.7) k/uL Basophils # 0.0 (0-0.2) k/uL Poikilocytosis Slight PT (9.0-12.0) sec INR (<1.1) APTT (22.0-30.0) sec Sodium 137 (137-145) mmol/L Potassium 3.9 (3.5-5.1) mmol/L Chloride 100 (98-107) mmol/L Carbon Dioxide 26 (22-30) mmol/L Anion Gap 11 mmol/L BUN 31 H (9-20) mg/dL Creatinine 1.20 (0.66-1.25) mg/dL Est GFR (MDRD) Af Amer >60 (>60 ml/min/1.73 sqM) Est GFR (MDRD) Non-Af >60 (>60 ml/min/1.73 sqM) Glucose 115 H (74-99) mg/dL Plasma Lactic Acid Ronnie (0.7-2.0) mmol/L Calcium 14.8 H* (8.4-10.2) mg/dL Magnesium 2.1 (1.6-2.3) mg/dL Total Bilirubin 1.2 (0.2-1.3) mg/dL AST 50 (17-59) U/L ALT 37 (21-72) U/L Alkaline Phosphatase 88 (38-126) U/L Total Creatine Kinase 32 L (55-170) U/L CK-MB (CK-2) 0.8 (0.0-2.4) ng/mL CK-MB (CK-2) Rel Index 2.5 Troponin I 0.024 (0.000-0.034) ng/mL Total Protein 6.3 (6.3-8.2) g/dL Albumin 3.3 L (3.5-5.0) g/dL Urine Color Urine Appearance (Clear) Urine pH (5.0-8.0) Ur Specific D Hanis (1.001-1.035) Urine Protein (Negative) Urine Glucose (UA) (Negative) Urine Ketones (Negative) Urine Blood (Negative) Urine Nitrate (Negative) Urine Bilirubin (Negative) Urine Urobilinogen (<2.0) mg/dL Ur Leukocyte Esterase (Negative) Urine RBC (0-5) /hpf Urine WBC (0-5) /hpf Ur Squamous Epith Cells (0-4) /hpf Amorphous Sediment (None) /hpf Urine Bacteria (None) /hpf Urine Mucus (None) /hpf 01/02/17 01/02/17 01/02/17 Range/Units 06:28 06:28 09:19 WBC (3.8-10.6) k/uL RBC (4.30-5.90) m/uL Hgb (13.0-17.5) gm/dL Hct (39.0-53.0) % MCV (80.0-100.0) fL MCH (25.0-35.0) pg MCHC (31.0-37.0) g/dL RDW (11.5-15.5) % Plt Count (150-450) k/uL Neutrophils % % Lymphocytes % % Monocytes % % Eosinophils % % Basophils % % Neutrophils # (1.3-7.7) k/uL Lymphocytes # (1.0-4.8) k/uL Monocytes # (0-1.0) k/uL Eosinophils # (0-0.7) k/uL Basophils # (0-0.2) k/uL Poikilocytosis PT 13.8 H (9.0-12.0) sec INR 1.4 (<1.1) APTT 22.2 (22.0-30.0) sec Sodium (137-145) mmol/L Potassium (3.5-5.1) mmol/L Chloride (98-107) mmol/L Carbon Dioxide (22-30) mmol/L Anion Gap mmol/L BUN (9-20) mg/dL Creatinine (0.66-1.25) mg/dL Est GFR (MDRD) Af Amer (>60 ml/min/1.73 sqM) Est GFR (MDRD) Non-Af (>60 ml/min/1.73 sqM) Glucose (74-99) mg/dL Plasma Lactic Acid Ronnie 3.8 H* (0.7-2.0) mmol/L Calcium (8.4-10.2) mg/dL Magnesium (1.6-2.3) mg/dL Total Bilirubin (0.2-1.3) mg/dL AST (17-59) U/L ALT (21-72) U/L Alkaline Phosphatase (38-126) U/L Total Creatine Kinase (55-170) U/L CK-MB (CK-2) (0.0-2.4) ng/mL CK-MB (CK-2) Rel Index Troponin I (0.000-0.034) ng/mL Total Protein (6.3-8.2) g/dL Albumin (3.5-5.0) g/dL Urine Color Yellow Urine Appearance Cloudy (Clear) Urine pH 5.0 (5.0-8.0) Ur Specific D Hanis 1.013 (1.001-1.035) Urine Protein Negative (Negative) Urine Glucose (UA) Negative (Negative) Urine Ketones Negative (Negative) Urine Blood Small H (Negative) Urine Nitrate Negative (Negative) Urine Bilirubin Negative (Negative) Urine Urobilinogen <2.0 (<2.0) mg/dL Ur Leukocyte Esterase Negative (Negative) Urine RBC 2 (0-5) /hpf Urine WBC <1 (0-5) /hpf Ur Squamous Epith Cells <1 (0-4) /hpf Amorphous Sediment Rare H (None) /hpf Urine Bacteria Rare H (None) /hpf Urine Mucus Rare H (None) /hpf Disposition Clinical Impression: Fall, Congestive heart failure, Knee contusion, Hypercalcemia, Contusion Disposition: ADMITTED IP TO THIS HOSP Condition: Good Referrals: Андрей Lino MD [Primary Care Provider] - 1-2 days
[2017-01-02] MEDS ORDERED: SODIUM CHLORIDE 0.9% 1,000 ML IV SCH (07:45)
--- NOTE | 2017-01-02 08:09 | XR ---
Bilateral knees HISTORY: Trauma and pain 3 views of both knees are submitted Joint space loss is present in the medial compartment of the right knee, there is marginal spurring a nd subchondral sclerosis. Alignment is maintained bilaterally. Bone mineralization overall mildly red uced. No evident joint effusion. Spurring at the patellofemoral joint greater on the right. IMPRESSION: Osteoarthritis. No fracture or dislocation.
--- NOTE | 2017-01-02 08:20 | XR ---
EXAMINATION TYPE: XR chest 1V portable DATE OF EXAM: 01/02/2017 6:59 AM COMPARISON: Prior chest x-ray December HISTORY: Weakness TECHNIQUE: Single frontal view of the chest is obtained. FINDINGS: Patient is rotated and there are overlying cardiac leads. Interstitium is mildly prominent . Heart size may be accentuated by rotation. No pneumothorax or pleural effusion. IMPRESSION: Similar findings to previous exam. Correlate to exclude interstitial lung disease or dasha ma. Follow-up PA and lateral chest x-ray suggested.
--- NOTE | 2017-01-02 08:38 | XR ---
Bilateral hips 2 views of both hips are submitted. No comparisons Bone mineralization, joint spaces and alignment are maintained. IMPRESSION: No fracture or dislocation. Follow-up as indicated.
[2017-01-02 09:44] LABS: Amorphous Sediment,Urine Rare /hpf; Appearance,Urine Cloudy (Clear); Bacteria,Urine Rare /hpf; Bilirubin,Urine Negative (Negative); Glucose,Urine (UA) Negative (Negative); Ketones,Urine Negative (Negative); Leukocyte Esterase,Urine Negative (Negative); Mucus,Urine Rare /hpf; Nitrite,Urine Negative (Negative); Particle Count 8871; Protein,Urine Negative (Negative); RBC,Urine 2 /hpf (0-5); Specific Gravity,Urine 1.013 (1.001-1.035); Squamous Epithelial Cell,Urine <1 /hpf (0-4); UA Billing (MACRO vs. MICRO) MICRO; Urobilinogen,Urine <2.0 mg/dL (<2.0); WBC,Urine <1 /hpf (0-5)
[2017-01-02] MEDS ORDERED: SODIUM CHLORIDE 0.9% 250 ML with PAMIDRONATE 60 MG IV ONE ×2 (09:44)
[2017-01-02] MEDS ORDERED: NALOXONE 0.4 MG/ML 1 ML VIAL IV PRN (09:50)
[2017-01-02] MEDS ORDERED: NITROGLYCERIN SL TABS 0.4 MG TAB SUBLINGUAL PRN (09:54)
[2017-01-02] MEDS ORDERED: CALCITONIN INJ 200 UNIT/ML (MDV) VIAL IM STA (10:02)
[2017-01-02] MEDS ORDERED: SODIUM CHLORIDE 0.9% 1,000 ML IV ONE (14:20)
[2017-01-02] MEDS: SODIUM CHLORIDE 0.9% 1,000 ML IV SCH ×2 (16:30→20:50)
[2017-01-02] MEDS: ACETAMINOPHEN TAB 325 MG TAB PO PRN ×2 (16:36→22:35)
--- NOTE | 2017-01-02 17:56 | HP ---
HISTORY OF PRESENT ILLNESS: Generalized weakness and mechanical fall. This is a 66-year-old gentleman, a patient of Dr. Lino, has multiple issues, including obstructive sleep apnea, coronary artery disease, comes in the hospital after sustaining a fall on tripping over his 's wheelchair in the middle of the night. The patient sustained some injury to the knee, came into the hospital for further workup. In the ER, patient was examined, underwent serial x-rays, including the hip and pelvis, was negative for any occult fractures. Patient apparently over the last few weeks has felt weak. Denies having any additional problems. His main issue appears to be generalized weakness at this time. Patient also apparently has had an unintentional 40 to 50-pound weight loss in the recent times. In the ER, patient was noted to have a calcium level of 14.5 with an albumin of 3.3. Corrected would be close to 15. Patient, however, is asymptomatic except for a slight degree of encephalopathy. On receiving the phone call by the ER physician, I directed the ER physician to infuse IV pamidronate. PTH was ordered and other investigations to be done were also directed. The patient denies having any chest pain, difficulty in breathing, abdominal pain, constipation, urinary urgency or frequency at this time. REVIEW OF SYSTEMS: Fourteen-point review of systems was done; none pertinent other that what was mentioned. ALLERGIES ARE BACITRACIN, NEOMYCIN AND BACTRIM. SOCIAL HISTORY: Remote history of smoking. No alcohol or illicit drug use. Family history of multiple cancers, including breast and brain cancer. Past medical history includes obstructive sleep apnea, CAD, asthma and hypertension. Past surgical history includes cardiac catheterization with intervention, tonsillectomy and remote history of some ear surgery. Medications include: 1. DuoNeb. 2. Atorvastatin. 3. Symbicort. 4. Aspirin. 5. Plavix. 6. Metoprolol. 7. Nitroglycerin. 8. Spiriva. Medication doses were reviewed and reconciliation was done appropriately. PHYSICAL EXAM: VITAL SIGNS: Heart rate is 101, respiratory rate 18, blood pressure is 127/70, saturating 100% on 3L supplemental oxygen. GENERAL APPEARANCE: Alert, oriented x3. Does not appear to be in distress; however, states to be just weak. LUNGS: Good air entry. Clear to auscultation. No rhonchi or wheezing. Patient was laying flat here at the time of my examination, HEART: S1, S2 are regular in rhythm. No murmurs appreciated. ABDOMEN: Soft, nontender, obese. No organomegaly. Bowel sounds intact. NEUROLOGIC: Strength is 5 out of 5 in all 4 extremities. Cranial nerves 2-12 grossly intact. PSYCHIATRIC: Calm and appropriate. LOWER EXTREMITIES: No edema appreciated. Chest x-ray was reviewed, appears to have some chronic changes. No signs of pulmonary vascular congestion. Laboratory data include sodium 137, potassium 3.2, chloride 100, bicarb 26, BUN 31, creatinine 1.20 with a baseline creatinine of around 0.7 to 0.9. Calcium of 14.8. Albumin of 3.3. Hemoglobin is 12.5, hematocrit 37, platelets of 236. ASSESSMENT AND PLAN: 1. Mechanical fall. 2. Hypercalcemia. 3. Lactic acidosis. 4. History of coronary artery disease. 5. Obstructive sleep apnea. 6. Unintentional weight loss. 7. Asthma. PLAN: IV pamidronate was infused. I do not feel the patient is in fluid overload. Will infuse the patient with a liter bolus and thereafter will infuse the patient with 150 mL of normal saline. Repeat lab values will be done. If patient's calcium is elevated in the a.m., will infuse calcitonin at that time. With the first differentials being hypercalcemia of malignancy or hyperparathyroidism, a PTH will be done and serum and urine electrophoresis will be done. Although multiple myeloma is on the differential, patient does have some slowing of kidney function with hypercalcemia. No signs of anemia or lytic lesions that at this time. Patient will be started on DVT prophylaxis. A CK level and a uric acid level will also be obtained in a.m. If the level is elevated, will consider consultation with Nephrology in the a.m.
[2017-01-02] MEDS: ENOXAPARIN 40 MG/0.4 ML SYRINGE SQ SCH (18:47)
[2017-01-02] MEDS: IPRATROPIUM-ALBUTEROL 3 ML NEB INHALATION PRN (19:40)
[2017-01-02] MEDS: SYMBICORT 160-4.5 MCG INHALER INHALATION SCH (19:40)
[2017-01-02] MEDS: ATORVASTATIN 80 MG TAB PO SCH (20:49)
[2017-01-02] MEDS: METOPROLOL TARTRATE 25 MG TAB PO SCH (20:49)
[2017-01-03] MEDS: traMADol 50 MG TAB PO PRN ×2 (03:45→11:48)
[2017-01-03 06:38] LABS: Basophils % (A) 1 %; CH 27.9; Eosinophils # (A) 0.1 k/uL (0-0.7); Eosinophils % (A) 3 %; HCT 32.6 % (39.0-53.0); HDW 3.65; HGB 10.6 gm/dL (13.0-17.5); Hypochromasia Slight; Luc # (Auto) 0.17; Luc % (Auto) 4; Lymphocytes # (A) 0.2 k/uL (1.0-4.8); Lymphocytes % (A) 5 %; MCH 27.8 pg (25.0-35.0); MCHC 32.6 g/dL (31.0-37.0); MCV 85.2 fL (80.0-100.0); Monocytes # (A) 0.4 k/uL (0-1.0); Monocytes % (A) 9 %; Neutrophils # (A) 3.4 k/uL (1.3-7.7); Neutrophils % (A) 79 %; Poikilocytosis Slight; RBC 3.83 m/uL (4.30-5.90); RDW 15.6 % (11.5-15.5); WBC 4.4 k/uL (3.8-10.6); WBC (Perox) 4.76
[2017-01-03 06:51] LABS: ALT 36 U/L (21-72); AST 44 U/L (17-59); Alkaline Phosphatase 65 U/L (38-126); Anion Gap 6 mmol/L; Blood Urea Nitrogen 22 mg/dL (9-20); Calcium 11.9 mg/dL (8.4-10.2); Carbon Dioxide 26 mmol/L (22-30); Chloride 106 mmol/L (98-107); Creatine Kinase 73 U/L (55-170); Glucose 90 mg/dL (74-99); Magnesium 1.7 mg/dL (1.6-2.3); Non-African American GFR(MDRD) >60 (>60 ml/min/1.73 sqM); Potassium 3.9 mmol/L (3.5-5.1); Sodium 138 mmol/L (137-145); Total Protein 5.2 g/dL (6.3-8.2); Uric Acid 10.4 mg/dL (3.5-8.5)
[2017-01-03] MEDS: SYMBICORT 160-4.5 MCG INHALER INHALATION SCH ×2 (08:10→18:47)
[2017-01-03] MEDS: TIOTROPIUM 18 MCG/PUFF INHALER INHALATION SCH ×2 (08:11→08:17)
[2017-01-03] MEDS: IPRATROPIUM-ALBUTEROL 3 ML NEB INHALATION PRN (08:11)
[2017-01-03] MEDS ORDERED: CALCITONIN INJ 200 UNIT/ML (MDV) VIAL IM SCH (09:00)
[2017-01-03] MEDS: ASPIRIN 325 MG TAB PO SCH (09:18)
[2017-01-03] MEDS: ENOXAPARIN 40 MG/0.4 ML SYRINGE SQ SCH (09:19)
[2017-01-03] MEDS: CLOPIDOGREL 75 MG TAB PO SCH (09:19)
[2017-01-03] MEDS: LACTOBACILLUS ACIDOPH & BULGAR 1 EACH PACKET PO SCH (09:20)
[2017-01-03] MEDS: ACETAMINOPHEN TAB 325 MG TAB PO PRN (10:33)
[2017-01-03] MEDS: METOPROLOL TARTRATE 25 MG TAB PO SCH ×2 (10:36→22:29)
--- NOTE | 2017-01-03 10:51 | XR ---
EXAMINATION TYPE: XR chest 2V DATE OF EXAM: 01/03/2017 10:18 AM COMPARISON: 01/02/2017 HISTORY: 66-year-old male CHF/cough TECHNIQUE: Frontal and lateral views FINDINGS: The heart is upper limits of normal in size. Discarded cartilage calcifications. Mild diffuse interstitial prominence has a chronic appearance. No consolidation or pleural effusion. IMPRESSION: Chronic changes and borderline cardiomegaly. No definite acute process.
[2017-01-03] MEDS: MULTIVITAMINS, THERA 1 EACH TAB PO SCH (11:54)
[2017-01-03] MEDS ORDERED: RX INFO: IV CONTRAST WAS GIVEN 1 EACH MISC MISCELLANE PRN (16:46)
[2017-01-03] MEDS: IOHEXOL 350 MG/ML 25 ML BOTTLE (ORAL USE) PO PRN ×2 (17:09→18:09)
[2017-01-03] MEDS: SODIUM CHLORIDE 0.9% 1,000 ML IV SCH ×2 (17:12)
--- NOTE | 2017-01-03 19:26 | CT ---
EXAMINATION TYPE: CT ChestAbdPelvis w con DATE OF EXAM: 01/03/2017 6:49 PM COMPARISON: CT chest 12/15/2016 HISTORY: 66-year-old male complains of syncopal episode with fall and weakness. Evaluate for malignan cy. TECHNIQUE: Contiguous axial scanning of the chest, abdomen, and pelvis performed with IV Contrast, pa tient injected with 100 mL of Omnipaque 300. Delayed images through the kidneys were obtained. Ivan l/sagittal reconstructions performed. CT DLP: 2637.3 mGycm Automated exposure control for dose reduction was used. FINDINGS: CHEST: Heart is normal size without pericardial effusion. Coronary vessel calcifications are present and are remarkable for coronary artery disease. Ectasia of the ascending aorta at 3.9 cm a conventional arthrogram branching anatomy. There is also e ctasia of the upper descending thoracic aorta at 3.0 cm. Enlarged right retrocrural lymph node at 1.3 cm increased in size from 12/15/2016. An anterior paracard iac lymph node measures 1 cm and is borderline enlarged, increased from 12/15/2016 as well. No addition al thoracic lymphadenopathy. Calcified subcarinal and left hilar lymph nodes compatible with prior granulomatous disease. There is mild to moderate bilateral gynecomastia. Suggestion of trace pleural fluid and scattered calcified granulomas. Mild diffuse bronchial wall thickening suggests bronchitis or chronic asthma. No consolidation or ple ural effusion. ABDOMEN: A 1.2 cm hypodense lesion within the hepatic dome is too small for accurate CT characterization and i t is uncertain if this was present prior to 12/15/2016. Otherwise, no focal liver lesion. Portal venous system is patent no biliary ductal dilatation. Gallbladder, adrenal glands, and pancreas show no gross abnormality. Mild splenomegaly at 14.7 cm craniocaudal. There is an anterior splenule. There is mild bilateral pelvicaliectasis/hydronephrosis with no excretion of contrast on the delayed kidney images. No dilated small bowel or free air. Mild edematous changes throughout the abdominal mesentery with st randing fluid tracking down to the presacral region. There is severe retroperitoneal lymphadenopathy encasing the aorta and partially encasing the IVC beg inning at the infrarenal level with conglomerate lymphadenopathy measuring up to 9.4 cm wide. Lymphad enopathy extends along the left greater than right iliac chain and on coronal series, the total crani ocaudal span of the conglomerate lymphadenopathy is 228.4 cm, coronal image 60. Additional peripancreatic and scattered mesenteric lymphadenopathy is also present measuring up to 1. 3 cm, for example, axial image 83. Pelvis: The bulky left iliac chain lymphadenopathy measures up to 10.5 cm, axial image 113 and right iliac ch ain lymphadenopathy measures up to 5.3 cm, axial image 109. Bladder is partially urine distended but narrowed from side to side due to the pelvic lymphadenopathy . Mild presacral edema and left inguinal lymphadenopathy measuring up to 3.2 cm. Bones: Mild degenerative changes at the hips. Additional degenerative changes lower lumbar spine. Endplate s pondylosis mid to lower thoracic spine. No osseous destructive process. IMPRESSION: 1. BULKY RETROPERITONEAL LYMPHADENOPATHY BEGINNING FROM THE INFRARENAL LEVEL AND EXTENDING DOWN THE L EFT GREATER THAN RIGHT ILIAC CHAINS WITH THE LARGE CONGLOMERATE JOSIANE MASS MEASURING UP TO 28 CM CRAN IOCAUDAL AND UP TO 9 CM WIDE AT THE LEVEL OF THE RETROPERITONEUM AND 11 CM WIDE AT THE LEVEL OF THE L EFT ILIAC CHAIN. 2. ADDITIONAL SCATTERED LYMPHADENOPATHY IN THE UPPER ABDOMEN, MESENTERY, RIGHT RETROCRURAL REGION, AN D ANTERIOR PERICARDIAC REGION. THE PERICARDIAC LYMPH NODE MEASURES ONLY UP TO 1 CM BUT IS NEW FROM 12/15/2016. 3. ADDITIONAL LEFT INGUINAL LYMPHADENOPATHY MEASURING UP TO 3.2 CM. 4. MILD SPLENOMEGALY. LYMPHOMA IS THE PRIMARY DIFFERENTIAL CONSIDERATION. 5. MILD BILATERAL HYDRONEPHROSIS. NO EXCRETION OF CONTRAST FROM THE KIDNEYS ON DELAYED KIDNEY IMAGES. SUSPECT LYMPHADENOPATHY CAUSING SOME DEGREE OF URETERIC OBSTRUCTION. CORRELATE WITH THE BUN AND CREA TININE.
--- NOTE | 2017-01-03 19:33 | PN ---
SUBJECTIVE DATA: This is a 66-year-old gentleman that was admitted after mechanical fall. The patient noted to have a calcium level that was critical. The patient thereafter received IV pamidronate and one dose of Calcitonin including IV fluid resuscitation. Overnight, patient's urine output has been appropriate. States to be doing well today. Denies having any generalized weakness, headaches, blurry vision, nausea, vomiting, abdominal pain or diarrhea. Patient was able to ambulate to the bathroom without much difficulty. PHYSICAL EXAMINATION: VITALS: Temperature 97.2, heart rate 80, respiratory rate 18, blood pressure 109/56, saturating 97% on room air. GENERALLY: Patient appears to be alert, oriented x3. HEENT: The pupils are equal and reactive to light and accommodation. HEART: S1, S2 present. No murmur appreciated. LUNGS: Good air entry. No wheezing or rhonchi noted. ABDOMINAL EXAM: Soft, nontender, no organomegaly appreciated. GENITOURINARY: No Lehman in place. EXTREMITIES: Pulses can be palpated distally. Denies any tenderness on gross palpation. SKIN: On a gross skin exam does not appear to have any purpura or any skin rashes that were noted. NEUROLOGICALLY: Grossly cranial nerves 2-12 intact. No motor or sensory deficits noted. LABORATORY DATA: Hemoglobin is 10.6, hematocrit 32.6, white count level 4.4, platelets of 206. Sodium 138, potassium 3.9, chloride 106, bicarb 26, BUN is 22, creatinine 1.01. Lactic acid is 2.3, uric acid is 10.4, calcium is 11.9 today. TSH is 1.3, PTH is less than 5.5. ASSESSMENT AND PLAN: 1. Hypercalcemia. Rule out hypercalcemia secondary to malignancy. 2. Lactic acidosis. 3. Acute kidney injury without acute tubular necrosis likely secondary to dehydration and prerenal azotemia. 4. Mechanical fall. 5. History of remote tobacco use. 6. Coronary artery disease. 7. Chronic obstructive pulmonary disease. PLAN: Continue ongoing care. Patient's PTH is low. Hence, hyperparathyroidism was ruled out. Await serum and urine electrophoresis. Patient will also undergo a CT scan of the chest and abdomen to rule out any other occult malignancies. If parathyroid related hormone will also need to be checked. We will have a social work therapist on consult if the CT scans are positive. Continue IV fluid resuscitation. Monitor urine output. Continue DVT prophylaxis. Encourage ambulation. If the calcium level is higher, patient will be infused with more calcitonin at that time.
[2017-01-03] MEDS: ATORVASTATIN 80 MG TAB PO SCH (22:29)
[2017-01-04 06:39] LABS: Basophils % (A) 0 %; CHCM 32.8; Eosinophils # (A) 0.1 k/uL (0-0.7); Eosinophils % (A) 3 %; HCT 33.6 % (39.0-53.0); HDW 3.72; Hypochromasia Slight; Luc # (Auto) 0.14; Luc % (Auto) 3; Lymphocytes # (A) 0.2 k/uL (1.0-4.8); Lymphocytes % (A) 5 %; MCHC 32.6 g/dL (31.0-37.0); Mean Platelet Volume 8.4; Monocytes # (A) 0.4 k/uL (0-1.0); Monocytes % (A) 8 %; Neutrophils # (A) 3.8 k/uL (1.3-7.7); Neutrophils % (A) 81 %; Poikilocytosis Slight; RBC 3.91 m/uL (4.30-5.90); RDW 15.9 % (11.5-15.5); WBC 4.7 k/uL (3.8-10.6); WBC (Perox) 5.05
[2017-01-04 06:48] LABS: ALT 34 U/L (21-72); AST 47 U/L (17-59); Alkaline Phosphatase 70 U/L (38-126); Anion Gap 8 mmol/L; Blood Urea Nitrogen 17 mg/dL (9-20); Calcium 11.2 mg/dL (8.4-10.2); Carbon Dioxide 24 mmol/L (22-30); Chloride 108 mmol/L (98-107); Glucose 82 mg/dL (74-99); Magnesium 1.5 mg/dL (1.6-2.3); Non-African American GFR(MDRD) >60 (>60 ml/min/1.73 sqM); Potassium 3.9 mmol/L (3.5-5.1); Sodium 140 mmol/L (137-145); Total Protein 5.1 g/dL (6.3-8.2); Uric Acid 9.6 mg/dL (3.5-8.5)
[2017-01-04 06:53] LABS: INR 1.5 (<1.1); Prothrombin Time 14.8 sec (9.0-12.0)
[2017-01-04] MEDS: SODIUM CHLORIDE 0.9% 1,000 ML IV SCH ×5 (08:31→22:38)
[2017-01-04] MEDS: ASPIRIN 325 MG TAB PO SCH (08:33)
[2017-01-04] MEDS: CLOPIDOGREL 75 MG TAB PO SCH (08:33)
[2017-01-04] MEDS: METOPROLOL TARTRATE 25 MG TAB PO SCH ×2 (08:33→20:17)
[2017-01-04] MEDS: ENOXAPARIN 40 MG/0.4 ML SYRINGE SQ SCH (08:33)
[2017-01-04] MEDS: MULTIVITAMINS, THERA 1 EACH TAB PO SCH (08:34)
[2017-01-04] MEDS: LACTOBACILLUS ACIDOPH & BULGAR 1 EACH PACKET PO SCH (08:34)
[2017-01-04] MEDS: TIOTROPIUM 18 MCG/PUFF INHALER INHALATION SCH (09:03)
[2017-01-04] MEDS: SYMBICORT 160-4.5 MCG INHALER INHALATION SCH ×2 (09:03→21:29)
--- NOTE | 2017-01-04 18:26 | PN ---
This is a 66-year-old gentleman that is admitted to the hospital with mechanical fall. Patient was incidentally noted to have hypercalcemia. Thereafter on further work up including a CAT scan, patient was noted to have a bulky lymphadenopathy all along the abdomen and chest and in the inguinal region. Today patient appeared to be tearful about his results of the CAT scan. He has no new complaints including chest pain, difficulty breathing, nausea, vomiting, or diarrhea. Patient is ambulating in the room without any difficulty at this time. PHYSICAL EXAMINATION: VITAL SIGNS: Temperature 98.8, heart rate 84, respiratory rate 18, blood pressure 120/45. Saturating 99% on room air. GENERAL APPEARANCE: Alert, oriented x3. NECK: Supple. No JVD. HEAD: Atraumatic, normocephalic. Pupils are equal, round, and react to light and accommodation. LUNGS: Good air entry. Clear to auscultation. No rhonchi or wheezing. HEART: S1, S2 are regular rate and rhythm. No murmurs appreciated. ABDOMEN: Obese. No organomegaly appreciated. Bowel sounds are intact. LOWER EXTREMITIES: No edema appreciated. NEUROLOGICAL: No focal motor or sensory deficits noted. LABORATORY DATA: Hemoglobin 11, hematocrit 33.6, white count 3.91, platelets of 228. Sodium 140, potassium 3.9, chloride 100, bicarb 24, BUN 70 and creatinine of 0.96, ( ) 9.6, calcium today is 11.2. ASSESSMENT AND PLAN: 1. Hypercalcemia from malignancy. 2. Mechanical fall. 3. Unintentional weight loss. 4. Chronic obstructive pulmonary disease. 5. Coronary artery disease. 6. Hyperuricemia. 7. Hypertension. 8. DVT prophylaxis with Lovenox, encourage ambulation. PLAN: Continue ongoing care. Await protein electrophoresis results. Patient does have a left inguinal node. Will defer to Dr. Pike who is also consulted today in regards to ( ) biopsy versus further investigational studies. We will continue monitoring calcium levels. There is definitely some degree of dehydration as well.
--- NOTE | 2017-01-04 19:58 | P.CONS ---
History of Present Illness - Reason for Consult Consult date: 01/04/17 Hypercalcemia, Lymphadenopathy - History of Present Illness The patient is a 66-year-old gentleman, who was brought to the ER after falling after tripping over his 's wheelchair. He had been gettin progresively weaker over the past 3-4 weeks. He was c/o increased sleepiness, and some unsteadiness over this time. He had lost 30-40 lbs over the past 3-4 mths due to decreased appetite. In the ER, he had multiple Xrays including the LLE, Lt hip and pelvis, revealing no fractures. His labs however showed a Ca++ of > 14. He was treated with IV fluids and pamidronate. For w/u, CT of the CAP were ordered, showing extensive adenopathy. The consult was therefore placed for further evaluation and recommendations. Review of Systems Constitutional: Reports fatigue, Reports poor appetite, Reports weakness, Reports weight loss Eyes: denies blurred vision, denies pain Ears: deny: decreased hearing, ear discharge, earache, tinnitus Ears, nose, mouth and throat: Denies headache, Denies sore throat Cardiovascular: Reports decreased exercise tolerance Respiratory: Denies cough Gastrointestinal: Denies abdominal pain, Denies diarrhea, Denies nausea, Denies vomiting Genitourinary: Reports as per HPI Musculoskeletal: Reports muscle weakness Integumentary: Denies pruritus, Denies rash Neurological: Reports weakness Psychiatric: Denies anxiety, Denies depression Endocrine: Reports fatigue, Reports weight change Hematologic/Lymphatic: Reports as per HPI Past Medical History Past Medical History: Asthma, Myocardial Infarction ([place]), Sleep Apnea/CPAP/BIPAP Additional Past Medical History / Comment(s): leaking heart valve Last Myocardial Infarction Date:: 12/2016 History of Any Multi-Drug Resistant Organisms: None Reported Past Surgical History: Ear Surgery, Heart Catheterization, Heart Catheterization With Stent, Tonsillectomy Past Anesthesia/Blood Transfusion Reactions: No Reported Reaction Date of Last Stent Placement:: 07/2016 Past Psychological History: Depression Additional Psychological History / Comment(s): some belives he is but no diagnosis Smoking Status: Former smoker Past Alcohol Use History: None Reported Past Drug Use History: None Reported - Past Family History Father Family Medical History: Respiratory Disorder Additional Family Medical History / Comment(s): from [facility] Mother Family Medical History: Cancer Additional Family Medical History / Comment(s): breast, bone, and brain CA, heart attack Medications and Allergies Home Medications Medication Instructions Recorded Confirmed Type Budesonide/Formoterol Fumarate 2 puff INHALATION RT-BID 01/21/15 01/02/17 History [Symbicort 160-4.5 Mcg Inhaler] Multivitamin [Men's Multi-Vitamin] 1 tab PO DAILY 01/21/15 01/02/17 History L.acidoph,Paracasei, B.lactis 1 cap PO DAILY 07/26/16 01/02/17 History [Probiotic] Tiotropium 18 Mcg/Puff [Spiriva] 1 cap INHALATION RT-DAILY 07/26/16 01/02/17 History Allergies Allergy/AdvReac Type Severity Reaction Status Date / Time bacitracin zinc Allergy Swelling Verified 01/02/17 10:37 [From Cortisporin] neomycin sulfate Allergy Swelling Verified 01/02/17 10:37 [From Cortisporin] polymyxin B sulfate Allergy Swelling Verified 01/02/17 10:37 [From Cortisporin] sulfamethoxazole Allergy Rash/Hives Verified 01/02/17 10:37 [From Bactrim] trimethoprim [From Bactrim] Allergy Rash/Hives Verified 01/02/17 10:37 Physical Exam Vitals: Vital Signs Temp Pulse Resp BP Pulse Ox 01/04/17 11:00 98.7 F 85 18 106/59 93 L 01/04/17 07:55 99.0 F 94 18 116/63 93 L 01/04/17 04:00 98.6 F 92 18 108/58 95 01/04/17 00:00 97.5 F L 86 18 124/70 94 L 01/03/17 19:54 97.1 F L 87 18 96/55 94 L 01/03/17 16:00 97.2 F L 80 18 109/56 97 Intake and Output 01/03/17 01/04/17 01/04/17 22:59 06:59 14:59 Intake Total 1800 Balance 1800 Intake: Intake, IV Titration 1800 Amount Sodium Chloride 0.9% 1, 1800 000 ml @ 150 mls/hr IV . Q6H40M [facility] Rx#:[id number] Other: Voiding Method Toilet Toilet Toilet # Voids 1 1 2 Weight 124.1 kg - Constitutional General appearance: no acute distress - EENT Eyes: EOMI, PERRLA ENT: hearing grossly normal, normal oropharynx - Neck Neck: no lymphadenopathy - Respiratory Respiratory: bilateral: CTA - Cardiovascular Rhythm: regular Heart sounds: normal: S1, S2 - Gastrointestinal General gastrointestinal: normal bowel sounds, soft - Integumentary Integumentary: normal - Neurologic Neurologic: CNII-XII intact - Musculoskeletal Musculoskeletal: generalized weakness, strength equal bilaterally - Psychiatric Psychiatric: A&O x's 3 drowsy but arousable Possible palpable node medial left inguinal region. Size is difficult to estimate because of patient obese body habitus Results CBC & Chem 7: 01/04/17 06:21 01/04/17 06:21 Labs: Abnormal Lab Results - Last 24 Hours (Table) 01/04/17 01/04/17 01/04/17 Range/Units 06:21 06:21 06:21 RBC 3.91 L (4.30-5.90) m/uL Hgb 11.0 L (13.0-17.5) gm/dL Hct 33.6 L (39.0-53.0) % RDW 15.9 H (11.5-15.5) % Lymphocytes # 0.2 L (1.0-4.8) k/uL PT 14.8 H (9.0-12.0) sec Chloride 108 H (98-107) mmol/L Uric Acid 9.6 H (3.5-8.5) mg/dL Calcium 11.2 H (8.4-10.2) mg/dL Magnesium 1.5 L (1.6-2.3) mg/dL Total Protein 5.1 L (6.3-8.2) g/dL Albumin 2.5 L (3.5-5.0) g/dL Microbiology - Last 24 Hours (Table) 01/02/17 10:04 Blood Culture - Preliminary Blood No Growth after 48 hours Chest x-ray: report reviewed (Multiple skeletal surveys ) CT scan - abdomen: report reviewed CT scan - chest: report reviewed CT scan - pelvis: report reviewed Assessment and Plan (1) Hypercalcemia Narrative/Plan: The case was d/w the admitting service in detail. A malignant etiology is most likely at this time, based on the radiologic findings. This was discussed with the patient. He is being appropriately treated with IV hydration and Pamidronate , with improvement in Ca++. SPEP studies have been ordered. However with extensive adenopathy, myeloma is unlikely. A solid tumor or lymphoma are bigger possibilities. He will need a tissue diagnosis. Surgery will be consulted for the same Status: Acute
[2017-01-04] MEDS: ATORVASTATIN 80 MG TAB PO SCH (21:19)
[2017-01-05] MEDS: traMADol 50 MG TAB PO PRN ×2 (01:09→07:37)
[2017-01-05] MEDS: ACETAMINOPHEN TAB 325 MG TAB PO PRN ×2 (03:43→12:17)
[2017-01-05] MEDS: SODIUM CHLORIDE 0.9% 1,000 ML IV SCH ×3 (05:25→16:16)
[2017-01-05] MEDS: SYMBICORT 160-4.5 MCG INHALER INHALATION SCH ×2 (07:15→20:16)
[2017-01-05] MEDS: TIOTROPIUM 18 MCG/PUFF INHALER INHALATION SCH (07:19)
[2017-01-05 07:25] LABS: CH 28.3; CHCM 32.9; HCT 32.6 % (39.0-53.0); HDW 3.75; HGB 10.4 gm/dL (13.0-17.5); MCH 27.7 pg (25.0-35.0); MCV 86.6 fL (80.0-100.0); RBC 3.76 m/uL (4.30-5.90); RDW 16.3 % (11.5-15.5); WBC (Perox) 4.29
[2017-01-05] MEDS: ENOXAPARIN 40 MG/0.4 ML SYRINGE SQ SCH (07:25)
[2017-01-05 07:26] LABS: Anisocytosis Slight; Basophils % (A) 0 %; Eosinophils # (A) 0.1 k/uL (0-0.7); Eosinophils % (A) 2 %; Hypochromasia Slight; Luc # (Auto) 0.12; Luc % (Auto) 3; Lymphocytes # (A) 0.2 k/uL (1.0-4.8); Lymphocytes % (A) 6 %; Mean Platelet Volume 8.1; Monocytes # (A) 0.4 k/uL (0-1.0); Monocytes % (A) 9 %; Neutrophils # (A) 3.2 k/uL (1.3-7.7); Neutrophils % (A) 79 %; Poikilocytosis Slight
[2017-01-05] MEDS: ASPIRIN 325 MG TAB PO SCH (07:26)
[2017-01-05] MEDS: LACTOBACILLUS ACIDOPH & BULGAR 1 EACH PACKET PO SCH (07:26)
[2017-01-05] MEDS: CLOPIDOGREL 75 MG TAB PO SCH (07:26)
[2017-01-05] MEDS: METOPROLOL TARTRATE 25 MG TAB PO SCH ×2 (07:29→21:48)
[2017-01-05] MEDS: MULTIVITAMINS, THERA 1 EACH TAB PO SCH (07:29)
[2017-01-05 07:35] LABS: INR 1.6 (<1.1); Prothrombin Time 15.6 sec (9.0-12.0)
[2017-01-05 07:47] LABS: ALT 41 U/L (21-72); AST 50 U/L (17-59); Alkaline Phosphatase 65 U/L (38-126); Anion Gap 9 mmol/L; Blood Urea Nitrogen 16 mg/dL (9-20); Calcium 10.7 mg/dL (8.4-10.2); Carbon Dioxide 22 mmol/L (22-30); Chloride 111 mmol/L (98-107); Glucose 93 mg/dL (74-99); Magnesium 1.4 mg/dL (1.6-2.3); Non-African American GFR(MDRD) >60 (>60 ml/min/1.73 sqM); Potassium 3.6 mmol/L (3.5-5.1); Sodium 142 mmol/L (137-145); Total Bilirubin 1.2 mg/dL (0.2-1.3); Total Protein 4.8 g/dL (6.3-8.2)
[2017-01-05 14:29] VITALS: BMI 42.8
[2017-01-05] MEDS: traMADol 50 MG TAB PO SCH ×3 (16:14→23:42)
--- NOTE | 2017-01-05 17:06 | P.GSCN ---
History of Present Illness Consult date: 01/04/17 Reason for Consult: Lymph node biopsy Requesting physician: Blade Pike History of present illness: Patient is a 66-year-old male admitted through the emergency department with complains of general weakness and mechanical fall. Patient was noted to have a calcium level of 14.5 on admission. Patient subsequently underwent a computed tomography scan of the chest, abdomen and pelvis to rule out underlying malignancy with evidence of extensive adenopathy. Patient was evaluated by Dr. Pike for hematology service and consult was placed for lymph node biopsy for tissue diagnosis. Upon examination, patient is lying in bed. Patient reports unintentional weight loss and decreased appetite for several months. Patient complains of occasional night sweats. Patient reports left quadrant abdominal pain present for a few months per patient. Denies chills, fevers, nausea, vomiting, shortness of breath, or chest pain. Afebrile. WBC 4. Hemoglobin 10.4. INR 1.6. Past Medical History Past Medical History: Asthma, Myocardial Infarction ([place]), Sleep Apnea/CPAP/BIPAP Additional Past Medical History / Comment(s): leaking heart valve Last Myocardial Infarction Date:: 12/2016 History of Any Multi-Drug Resistant Organisms: None Reported Past Surgical History: Ear Surgery, Heart Catheterization, Heart Catheterization With Stent, Tonsillectomy Past Anesthesia/Blood Transfusion Reactions: No Reported Reaction Date of Last Stent Placement:: 07/2016 Past Psychological History: Depression Additional Psychological History / Comment(s): some belives he is but no diagnosis Smoking Status: Former smoker Past Alcohol Use History: None Reported Past Drug Use History: None Reported - Past Family History Father Family Medical History: Respiratory Disorder Additional Family Medical History / Comment(s): from [facility] Mother Family Medical History: Cancer Additional Family Medical History / Comment(s): breast, bone, and brain CA, heart attack Medications and Allergies Home Medications Medication Instructions Recorded Confirmed Type Budesonide/Formoterol Fumarate 2 puff INHALATION RT-BID 01/21/15 01/02/17 History [Symbicort 160-4.5 Mcg Inhaler] Multivitamin [Men's Multi-Vitamin] 1 tab PO DAILY 01/21/15 01/02/17 History L.acidoph,Paracasei, B.lactis 1 cap PO DAILY 07/26/16 01/02/17 History [Probiotic] Tiotropium 18 Mcg/Puff [Spiriva] 1 cap INHALATION RT-DAILY 07/26/16 01/02/17 History Allergies Allergy/AdvReac Type Severity Reaction Status Date / Time bacitracin zinc Allergy Swelling Verified 01/02/17 10:37 [From Cortisporin] neomycin sulfate Allergy Swelling Verified 01/02/17 10:37 [From Cortisporin] polymyxin B sulfate Allergy Swelling Verified 01/02/17 10:37 [From Cortisporin] sulfamethoxazole Allergy Rash/Hives Verified 01/02/17 10:37 [From Bactrim] trimethoprim [From Bactrim] Allergy Rash/Hives Verified 01/02/17 10:37 Surgical - Exam Vital Signs Temp Pulse Resp BP Pulse Ox 97.6 F 108 H 18 99/57 89 L 01/02/17 06:15 01/02/17 06:15 01/02/17 06:15 01/02/17 06:15 01/02/17 06:15 GENERAL: Pt awake and alert, lying in bed, well-nourished, and in no acute distress. HEAD: Atraumatic, normocephalic. EYES: Pupils equal and round. Sclera anicteric, conjunctiva are normal. NECK:Supple without lymphadenopathy or JVD. LUNGS: Breath sounds clear to auscultation bilaterally. No wheezes, rales, or rhonchi. HEART: Heart S1, S2, no S3 or S4. Regular rate and rhythm. No murmurs, rubs or gallops. ABDOMEN: Soft, tenderness to left lower quadrant, nondistended, normoactive bowel sounds. No peritoneal signs. NEUROLOGICAL: Pt oriented x 3. Results - Labs 01/05/17 07:07 01/05/17 07:07 Abnormal Lab Results - Last 24 Hours (Table) 01/03/17 01/04/17 01/05/17 Range/Units 06:06 06:21 07:07 RBC (4.30-5.90) m/uL Hgb (13.0-17.5) gm/dL Hct (39.0-53.0) % RDW (11.5-15.5) % Lymphocytes # (1.0-4.8) k/uL PT 15.6 H (9.0-12.0) sec Chloride (98-107) mmol/L Uric Acid (3.5-8.5) mg/dL Calcium (8.4-10.2) mg/dL Magnesium (1.6-2.3) mg/dL Total Protein (6.3-8.2) g/dL Albumin (3.5-5.0) g/dL Vitamin D 25-Hydroxy 13.4 L (30.0-100.0) ng/mL PTH Intact <5.5 L (14.0-72.0) pg/mL 01/05/17 01/05/17 Range/Units 07:07 07:07 RBC 3.76 L (4.30-5.90) m/uL Hgb 10.4 L (13.0-17.5) gm/dL Hct 32.6 L (39.0-53.0) % RDW 16.3 H (11.5-15.5) % Lymphocytes # 0.2 L (1.0-4.8) k/uL PT (9.0-12.0) sec Chloride 111 H (98-107) mmol/L Uric Acid 9.0 H (3.5-8.5) mg/dL Calcium 10.7 H (8.4-10.2) mg/dL Magnesium 1.4 L (1.6-2.3) mg/dL Total Protein 4.8 L (6.3-8.2) g/dL Albumin 2.3 L (3.5-5.0) g/dL Vitamin D 25-Hydroxy (30.0-100.0) ng/mL PTH Intact (14.0-72.0) pg/mL Microbiology - Last 24 Hours (Table) 01/02/17 10:04 Blood Culture - Preliminary Blood No Growth after 72 hours Diabetes panel 01/05/17 Range/Units 07:07 Sodium 142 (137-145) mmol/L Potassium 3.6 (3.5-5.1) mmol/L Chloride 111 H (98-107) mmol/L Carbon Dioxide 22 (22-30) mmol/L BUN 16 (9-20) mg/dL Creatinine 0.96 (0.66-1.25) mg/dL Glucose 93 (74-99) mg/dL Calcium 10.7 H (8.4-10.2) mg/dL AST 50 (17-59) U/L ALT 41 (21-72) U/L Alkaline Phosphatase 65 (38-126) U/L Total Protein 4.8 L (6.3-8.2) g/dL Albumin 2.3 L (3.5-5.0) g/dL Calcium panel 01/05/17 Range/Units 07:07 Calcium 10.7 H (8.4-10.2) mg/dL Albumin 2.3 L (3.5-5.0) g/dL Pituitary panel 01/05/17 Range/Units 07:07 Sodium 142 (137-145) mmol/L Potassium 3.6 (3.5-5.1) mmol/L Chloride 111 H (98-107) mmol/L Carbon Dioxide 22 (22-30) mmol/L BUN 16 (9-20) mg/dL Creatinine 0.96 (0.66-1.25) mg/dL Glucose 93 (74-99) mg/dL Calcium 10.7 H (8.4-10.2) mg/dL Adrenal panel 01/05/17 Range/Units 07:07 Sodium 142 (137-145) mmol/L Potassium 3.6 (3.5-5.1) mmol/L Chloride 111 H (98-107) mmol/L Carbon Dioxide 22 (22-30) mmol/L BUN 16 (9-20) mg/dL Creatinine 0.96 (0.66-1.25) mg/dL Glucose 93 (74-99) mg/dL Calcium 10.7 H (8.4-10.2) mg/dL Total Bilirubin 1.2 (0.2-1.3) mg/dL AST 50 (17-59) U/L ALT 41 (21-72) U/L Alkaline Phosphatase 65 (38-126) U/L Total Protein 4.8 L (6.3-8.2) g/dL Albumin 2.3 L (3.5-5.0) g/dL - Imaging CT scan - abdomen: report reviewed (Reviewed by Dr. Lira.) CT scan - chest: report reviewed (Reviewed by Dr. Lira) CT scan - pelvis: report reviewed (Review by Dr. Matthews) Assessment and Plan Plan: Impression: 1. Extensive lymphadenopathy. Plan: 1. Recommend ultrasound guided lymph node biopsy of left groin. Did speak with Dr. Ortega and Plavix and Lovenox will be held. The above impression and plan have been discussed and directed by Dr. Lira. Rose VANN acting as scribe for Dr. Lira.
[2017-01-05] MEDS: ATORVASTATIN 80 MG TAB PO SCH (20:38)
--- NOTE | 2017-01-05 21:58 | PN ---
SUBJECTIVE DATE/INTERVEAL HISTORY: This is a 66-year-old gentleman who was admitted to the hospital with a mechanical fall. Patient was noted to have hypercalcemia. Upon further workup, patient was noted to have significant adenopathy. Dr. Pike, the hematology/learning solutions specialist, was consulted. Patient's left inguinal node is to be biopsied for further workup. Patient states that he is weak however, denies having any chest pain, difficulty breathing, nausea, vomiting or diarrhea at this time. OBJECTIVE DATA VITALS: Temperature is 97.8, heart rate 94, respiratory rate 17, blood pressure 105/55. Saturating 95% on room air. GENERALLY: Patient appears to be alert, oriented x3. HEENT: The pupils are equal and reactive to light and accommodation. HEART: S1, S2 present. No murmur appreciated. LUNGS: Good air entry. No wheezing or rhonchi noted. ABDOMINAL EXAM: Soft, nontender, no organomegaly appreciated. GENITOURINARY: No Lehman in place. EXTREMITIES: Pulses can be palpated distally. Denies any tenderness on gross palpation. SKIN: On a gross skin exam does not appear to have any purpura or any skin rashes that were noted. NEUROLOGICALLY: Grossly cranial nerves 2-12 intact. No motor or sensory deficits noted. Laboratory data include hemoglobin 10.4, hematocrit 32.6, white count of 4 and platelets of 228. Sodium 142, potassium 3.6, chloride 111, bicarb 22. BUN 16, creatinine 0.96. Uric acid is 9. Calcium is 10.7. Magnesium is 1.4. Vitamin D is 13.4. ASSESSMENT AND PLAN: 1. Hypercalcemia, likely secondary to malignancy. Patient undergoing biopsy. 2. Mechanical fall. 3. Chronic obstructive pulmonary disease, stable. 4. Unintentional weight loss. 5. Coronary artery disease, status post PTI in the past. 6. Hyperuricemia. 7. Hypertension. PLAN: Await biopsy. Patient is cleared to undergo biopsy with cessation of Plavix. Patient's last PCI was on 07/27/2016; however, patient's hypercalcemia is new and this mediastinal lymphadenopathy is brand new; hence the benefits from biopsy outweigh the risks, as patient would benefit from appropriate treatment immediately thereafter. Hence Plavix can be discontinued, and I would recommend depending on the surgeon's comfort, 48 to 72 hours thereafter cessation to prevent bleeding risk. Patient will likely be discharged upon biopsy to follow up for a PET scan as recommended by Dr. Pike. JOSE
[2017-01-06] MEDS: SODIUM CHLORIDE 0.9% 1,000 ML IV SCH ×3 (05:58→13:09)
[2017-01-06 07:12] LABS: Anisocytosis Slight; Basophils % (A) 1 %; CH 27.6; CHCM 32.1; Eosinophils # (A) 0.1 k/uL (0-0.7); Eosinophils % (A) 2 %; HCT 34.2 % (39.0-53.0); HDW 3.82; HGB 10.7 gm/dL (13.0-17.5); Hypochromasia Moderate; Luc # (Auto) 0.14; Luc % (Auto) 3; Lymphocytes # (A) 0.3 k/uL (1.0-4.8); Lymphocytes % (A) 7 %; MCH 27.2 pg (25.0-35.0); MCHC 31.3 g/dL (31.0-37.0); Mean Platelet Volume 7.3; Monocytes # (A) 0.3 k/uL (0-1.0); Monocytes % (A) 6 %; Neutrophils # (A) 3.4 k/uL (1.3-7.7); Neutrophils % (A) 81 %; Poikilocytosis Slight; RBC 3.93 m/uL (4.30-5.90); RDW 16.1 % (11.5-15.5); WBC 4.2 k/uL (3.8-10.6); WBC (Perox) 4.38
[2017-01-06 07:16] LABS: INR 1.6 (<1.1); Prothrombin Time 15.8 sec (9.0-12.0)
[2017-01-06 07:27] LABS: Anion Gap 10 mmol/L; Blood Urea Nitrogen 16 mg/dL (9-20); Calcium 9.9 mg/dL (8.4-10.2); Carbon Dioxide 18 mmol/L (22-30); Chloride 113 mmol/L (98-107); Glucose 87 mg/dL (74-99); Non-African American GFR(MDRD) >60 (>60 ml/min/1.73 sqM); Potassium 3.8 mmol/L (3.5-5.1); Sodium 141 mmol/L (137-145)
[2017-01-06] MEDS: ASPIRIN 325 MG TAB PO SCH (09:13)
[2017-01-06] MEDS: LACTOBACILLUS ACIDOPH & BULGAR 1 EACH PACKET PO SCH (09:48)
[2017-01-06] MEDS: METOPROLOL TARTRATE 25 MG TAB PO SCH ×2 (09:48→21:27)
[2017-01-06] MEDS: traMADol 50 MG TAB PO SCH ×4 (09:48→21:21)
[2017-01-06] MEDS: TIOTROPIUM 18 MCG/PUFF INHALER INHALATION SCH (10:00)
[2017-01-06] MEDS: SYMBICORT 160-4.5 MCG INHALER INHALATION SCH ×2 (10:00→20:01)
[2017-01-06] MEDS ORDERED: ERGOCALCIFEROL 50,000 UNIT CAP PO SCH (12:00)
[2017-01-06] MEDS: ONDANSETRON 4 MG/2 ML VIAL IVP PRN (13:08)
[2017-01-06] MEDS: MULTIVITAMINS, THERA 1 EACH TAB PO SCH ×2 (13:08→15:28)
--- NOTE | 2017-01-06 14:55 | P.PN ---
Subjective Principal diagnosis: Adenopathy Patient is a 66-year-old male admitted through the emergency department with complains of general weakness and mechanical fall. Patient was noted to have a calcium level of 14.5 on admission. Patient subsequently underwent a computed tomography scan of the chest, abdomen and pelvis to rule out underlying malignancy with evidence of extensive adenopathy. Patient was evaluated by Dr. Pike for oncology service and consult was placed for excisional lymph node biopsy for tissue diagnosis. Patient is scheduled for excisional lymph node biopsy on as he has been on Plavix last dose on Thursday. Patient continues to report left lower quadrant pain. Denies chills, fevers, nausea, vomiting, shortness of breath, or chest pain. T-max 99.4 at 7 AM this morning. No evidence of leukocytosis. Hemoglobin 10.7. INR 1.6. Objective - Vital Signs Vital signs: Vital Signs Temp 99.4 F 01/06/17 07:00 Pulse 95 01/06/17 07:00 Resp 18 01/06/17 07:00 BP 113/53 01/06/17 07:00 Pulse Ox 92 L 01/06/17 07:00 Intake & Output 01/05/17 01/06/17 01/06/17 18:59 06:59 18:59 Intake Total 1281 1790 Balance 1281 1790 Weight 124.1 kg Intake: Intake, IV Titration 1281 1200 Amount Sodium Chloride 0.9% 1, 1281 1200 000 ml @ 150 mls/hr IV . Q6H40M [facility] Rx#:[id number] Oral 590 Other: Voiding Method Toilet Toilet Toilet Urinal Urinal Urinal # Voids 3 2 1 # Bowel Movements 1 - Exam GENERAL: Pt awake and alert, lying in bed, well-nourished, and in no acute distress. HEAD: Atraumatic, normocephalic. EYES: Pupils equal and round. Sclera anicteric, conjunctiva are normal. NECK:Supple without lymphadenopathy or JVD. LUNGS: Breath sounds clear to auscultation bilaterally. No wheezes, rales, or rhonchi. HEART: Heart S1, S2, no S3 or S4. Regular rate and rhythm. No murmurs, rubs or gallops. ABDOMEN: Soft, tenderness to left lower quadrant, nondistended, normoactive bowel sounds. No peritoneal signs. NEUROLOGICAL: Pt oriented x 3. Integumentary: Yeast noted to bilateral groin area - Labs CBC & Chem 7: 01/06/17 06:53 01/06/17 06:53 Labs: Abnormal Lab Results - Last 24 Hours (Table) 01/04/17 01/04/17 01/06/17 Range/Units 06:21 06:21 06:53 RBC (4.30-5.90) m/uL Hgb (13.0-17.5) gm/dL Hct (39.0-53.0) % RDW (11.5-15.5) % Lymphocytes # (1.0-4.8) k/uL PT 15.8 H (9.0-12.0) sec Chloride (98-107) mmol/L Carbon Dioxide (22-30) mmol/L Vit D 1,25-Dihydroxy 144 H (20 - 79) pg/mL PTH Intact <5.5 L (14.0-72.0) pg/mL 01/06/17 01/06/17 Range/Units 06:53 06:53 RBC 3.93 L (4.30-5.90) m/uL Hgb 10.7 L (13.0-17.5) gm/dL Hct 34.2 L (39.0-53.0) % RDW 16.1 H (11.5-15.5) % Lymphocytes # 0.3 L (1.0-4.8) k/uL PT (9.0-12.0) sec Chloride 113 H (98-107) mmol/L Carbon Dioxide 18 L (22-30) mmol/L Vit D 1,25-Dihydroxy (20 - 79) pg/mL PTH Intact (14.0-72.0) pg/mL Microbiology - Last 24 Hours (Table) 01/02/17 10:04 Blood Culture - Preliminary Blood No Growth after 96 hours Assessment and Plan Plan: Impression: 1. Extensive lymphadenopathy. 2. Intertrigo to bilateral groin area Plan: 1. Patient will be scheduled for excisional left inguinal lymph node biopsy on . Nystatin will be ordered for groin area. Patient is a high risk of infection secondary to body habitus. The above impression and plan have been discussed and directed by Dr. Lira. Rose VANN acting as scribe for Dr. Lira.
[2017-01-06] MEDS: NYSTATIN 100,000 UNIT/GM OINT 30 GM TUBE TOPICAL SCH ×3 (15:29→21:27)
[2017-01-06] MEDS: LACTATED RINGERS 1,000 ML IV SCH (15:30)
[2017-01-06 15:46] LABS: Mis test requested (Non-blood) Ur Protein Electrop
[2017-01-06] MEDS: ATORVASTATIN 80 MG TAB PO SCH (21:27)
[2017-01-06] MEDS: ACETAMINOPHEN TAB 325 MG TAB PO PRN (23:53)
[2017-01-07] MEDS: TIOTROPIUM 18 MCG/PUFF INHALER INHALATION SCH (09:28)
[2017-01-07] MEDS: SYMBICORT 160-4.5 MCG INHALER INHALATION SCH ×2 (09:28→19:26)
[2017-01-07] MEDS: traMADol 50 MG TAB PO SCH ×4 (09:38→22:52)
[2017-01-07] MEDS: ASPIRIN 81 MG CHEW PO SCH (09:39)
[2017-01-07] MEDS: METOPROLOL TARTRATE 25 MG TAB PO SCH ×2 (09:39→20:58)
[2017-01-07] MEDS: LACTOBACILLUS ACIDOPH & BULGAR 1 EACH PACKET PO SCH (09:39)
[2017-01-07] MEDS: NYSTATIN 100,000 UNIT/GM OINT 30 GM TUBE TOPICAL SCH ×3 (09:39→22:53)
[2017-01-07] MEDS ORDERED: FUROSEMIDE 20 MG TAB PO STA (10:35)
--- NOTE | 2017-01-07 12:48 | P.PN ---
Subjective Date of Service 01/06/2017 Progress note being dictated for Dr. Martínez. Interval history: This is a 66-year-old gentleman admitted with mechanical fall , hypercalcemia suspicious for malignancy, extensive lymphadenopathy per CT of chest, abdomen and pelvis, unintentional weight loss and multiple other medical issues. Status post treatment with pamidronate and IV fluids. Calcium has normalized, at 9.9. Plavix placed on hold for diagnostic lymph node biopsy on . Maintain on baby aspirin, patient is a recent stent in July 2016. INR 1.6. Objective - Vital Signs Vital signs: Vital Signs Temp 99.5 F 01/06/17 15:58 Pulse 77 01/06/17 15:58 Resp 16 01/06/17 15:58 BP 92/52 01/06/17 15:58 Pulse Ox 93 L 01/06/17 15:58 Intake & Output 01/05/17 01/06/17 01/06/17 18:59 06:59 18:59 Intake Total 1281 1790 125 Balance 1281 1790 125 Weight 124.1 kg Intake: Intake, IV Titration 1281 1200 125 Amount Lactated Ringers 1,000 ml 125 @ 125 mls/hr IV .Q8H [facility] Rx#:[id number] Sodium Chloride 0.9% 1, 1281 1200 000 ml @ 150 mls/hr IV . Q6H40M [facility] Rx#:[id number] Oral 590 Other: Voiding Method Toilet Toilet Toilet Urinal Urinal Urinal # Voids 3 2 1 # Bowel Movements 1 - Exam PHYSICAL EXAM: VITAL SIGNS: As above GENERAL: [Sitting up at bedside, anxious] HEENT: [Pupils equal conjunctiva normal.] NECK: [Supple, no JVD] RESPIRATORY EFFORT:[Mildly increased] LUNGS: [Good air entry, our bases diminished, occasional mild expiratory wheezing, no crackles, no rhonchi] CARDIOVASCULAR[regular S1 and S2, no rubs murmurs or gallops, positive edema] GI: [Abdomen soft, nontender, positive bowel sounds.] PSYCH: [Alert and oriented -3, mood and affect normal.] NEURO: No focal deficits - Labs CBC & Chem 7: 01/06/17 06:53 01/06/17 06:53 Labs: Abnormal Lab Results - Last 24 Hours (Table) 01/04/17 01/04/1717 Range/Units 06:21 06:21 06:53 RBC (4.30-5.90) m/uL Hgb (13.0-17.5) gm/dL Hct (39.0-53.0) % RDW (11.5-15.5) % Lymphocytes # (1.0-4.8) k/uL PT 15.8 H (9.0-12.0) sec Chloride (98-107) mmol/L Carbon Dioxide (22-30) mmol/L Total Protein (PEP) 4.9 L (6.2-8.2) g/dL Albumin (PEP) 2.46 L (3.80-4.90) g/dL Vit D 1,25-Dihydroxy 144 H (20 - 79) pg/mL 01/06/17 01/06/17 Range/Units 06:53 06:53 RBC 3.93 L (4.30-5.90) m/uL Hgb 10.7 L (13.0-17.5) gm/dL Hct 34.2 L (39.0-53.0) % RDW 16.1 H (11.5-15.5) % Lymphocytes # 0.3 L (1.0-4.8) k/uL PT (9.0-12.0) sec Chloride 113 H (98-107) mmol/L Carbon Dioxide 18 L (22-30) mmol/L Total Protein (PEP) (6.2-8.2) g/dL Albumin (PEP) (3.80-4.90) g/dL Vit D 1,25-Dihydroxy (20 - 79) pg/mL Microbiology - Last 24 Hours (Table) 01/02/17 10:04 Blood Culture - Preliminary Blood No Growth after 96 hours Assessment and Plan Plan: 1. Hypercalcemia, extensive lymphadenopathy per CT of chest abdomen and pelvis , suspect malignancy, diagnostic biopsy pending. 2. [Status post Mechanical fall]. 3. [COPD, stable]. 4. [Unintentional weight loss]. 5. [CAD status post recent stent July 2016]. 6. [Hyperuricemia]. 7. [Hypertension]. 8. Mild bilateral hydronephrosis suspect related to lymphadenopathy Plan: Continue on current medication regime ,monitoring and symptomatic treatment. Plavix on hold for upcoming diagnostic biopsy. Maintain baby aspirin. PT/OT. Prognosis guarded given multiple complex medical issues. Further recommendations to follow. The impression and plan of care has been dictated as directed. : I performed a H&P examination of this patient and discussed the same with the dictator. I agree with the dictator's note. Any additional findings/opinions/ etc. will be noted.
[2017-01-07] MEDS: LACTATED RINGERS 1,000 ML IV SCH (13:29)
--- NOTE | 2017-01-07 13:37 | P.PN ---
Subjective Date of Service 01/07/2017 Progress note being dictated for Dr. Martínez. Interval history: This is a 66-year-old gentleman admitted with mechanical fall , hypercalcemia suspicious for malignancy, extensive lymphadenopathy per CT of chest, abdomen and pelvis, unintentional weight loss and multiple other medical issues. Maintained on IV fluids , developing lower extremity edema .Plavix on hold for diagnostic lymph node biopsy on . Labs pending. Denies chest pain, palpitations or increasing shortness of breath. Objective - Vital Signs Vital signs: Vital Signs Temp 98.2 F 01/07/17 08:06 Pulse 108 H 01/07/17 08:06 Resp 20 01/07/17 08:06 BP 127/68 01/07/17 08:06 Pulse Ox 95 01/07/17 08:06 Intake & Output 01/06/17 01/07/17 01/07/17 18:59 06:59 18:59 Intake Total 125 1180 Balance 125 1180 Intake: Intake, IV Titration 125 Amount Lactated Ringers 1,000 ml 125 @ 125 mls/hr IV .Q8H [facility] Rx#:[id number] Oral 1180 Other: Voiding Method Toilet Toilet Toilet Urinal Urinal Urinal # Voids 1 1 # Bowel Movements 1 - Exam PHYSICAL EXAM: VITAL SIGNS: As above GENERAL: [Sitting up at bedside, no acute distress HEENT: [Pupils equal conjunctiva normal.] NECK: [Supple, no JVD] RESPIRATORY EFFORT:[Mildly increased] LUNGS: [Good air entry, our bases diminished, mild expiratory wheezing, no crackles, no rhonchi] CARDIOVASCULAR[regular S1 and S2, no rubs murmurs or gallops, positive edema] GI: [Abdomen soft, nontender, positive bowel sounds.] PSYCH: [Alert and oriented -3, mood and affect normal.] NEURO: No focal deficits - Labs CBC & Chem 7: 01/06/17 06:53 01/06/17 06:53 Labs: Abnormal Lab Results - Last 24 Hours (Table) 01/04/17 Range/Units 06:21 Total Protein (PEP) 4.9 L (6.2-8.2) g/dL Albumin (PEP) 2.46 L (3.80-4.90) g/dL Microbiology - Last 24 Hours (Table) 01/02/17 10:04 Blood Culture - Preliminary Blood No Growth after 120 hours Assessment and Plan Plan: 1. Hypercalcemia, extensive lymphadenopathy per CT of chest abdomen and pelvis , suspect malignancy, diagnostic biopsy pending. 2. [Status post Mechanical fall]. 3. [COPD, stable]. 4. [Unintentional weight loss]. 5. [CAD status post recent stent July 2016]. 6. [Hyperuricemia]. 7. [Hypertension]. 8. Mild bilateral hydronephrosis suspect related to lymphadenopathy Plan: Continue on current medication regime ,monitoring and symptomatic treatment. Labs pending .IV fluids discontinued, single dose of Lasix ordered regarding bilateral lower leg edema. Plavix on hold for upcoming diagnostic biopsy. PT/OT. Discharge planning in progress for subacute rehab tomorrow post procedure .plan of care including discharge planning discussed with family at bedside, who verbalized understanding of, agreement with. Prognosis guarded given multiple complex medical issues. Further recommendations to follow. The impression and plan of care has been dictated as directed. : I performed a H&P examination of this patient and discussed the same with the dictator. I agree with the dictator's note. Any additional findings/opinions/ etc. will be noted.
--- NOTE | 2017-01-07 13:46 | P.PN ---
Subjective Principal diagnosis: Adenopathy Patient is a 66-year-old male admitted through the emergency department with complains of general weakness and mechanical fall. Patient was noted to have a calcium level of 14.5 on admission. Patient subsequently underwent a computed tomography scan of the chest, abdomen and pelvis to rule out underlying malignancy with evidence of extensive adenopathy. Patient was evaluated by Dr. Pike for oncology service and consult was placed for excisional lymph node biopsy for tissue diagnosis. Patient is scheduled for excisional lymph node biopsy tomorrow. Denies chills, nausea, vomiting, shortness of breath or chest pain. Patient reports decreased appetite. T-max 99.5. Objective - Vital Signs Vital signs: Vital Signs Temp 98.2 F 01/07/17 08:06 Pulse 108 H 01/07/17 08:06 Resp 20 01/07/17 08:06 BP 127/68 01/07/17 08:06 Pulse Ox 95 01/07/17 08:06 Intake & Output 01/06/17 01/07/17 01/07/17 18:59 06:59 18:59 Intake Total 125 1180 Balance 125 1180 Intake: Intake, IV Titration 125 Amount Lactated Ringers 1,000 ml 125 @ 125 mls/hr IV .Q8H [facility] Rx#:[id number] Oral 1180 Other: Voiding Method Toilet Toilet Toilet Urinal Urinal Urinal # Voids 1 1 # Bowel Movements 1 - Exam GENERAL: Pt awake and alert, lying in bed, well-nourished, and in no acute distress. LUNGS: Breath sounds clear to auscultation bilaterally. No wheezes, rales, or rhonchi. HEART: Heart S1, S2, no S3 or S4. Regular rate and rhythm. No murmurs, rubs or gallops. ABDOMEN: Soft, tenderness to left lower quadrant, nondistended, normoactive bowel sounds. No peritoneal signs. NEUROLOGICAL: Pt oriented x 3. - Labs CBC & Chem 7: 01/06/17 06:53 01/06/17 06:53 Labs: Abnormal Lab Results - Last 24 Hours (Table) 01/04/17 Range/Units 06:21 Total Protein (PEP) 4.9 L (6.2-8.2) g/dL Albumin (PEP) 2.46 L (3.80-4.90) g/dL Microbiology - Last 24 Hours (Table) 01/02/17 10:04 Blood Culture - Preliminary Blood No Growth after 120 hours Assessment and Plan Plan: Impression: 1. Extensive lymphadenopathy. 2. Intertrigo to bilateral groin area Plan: 1. Patient will be scheduled for excisional left inguinal lymph node biopsy Tomorrow. Continue Nystatin to groin area. Patient is a high risk of infection secondary to body habitus. Patient will be nothing by mouth after midnight. CBC, BMP, PT/INR will be ordered for tomorrow. The above impression and plan have been discussed and directed by Dr. Lira. Rose VANN acting as scribe for Dr. Lira.
[2017-01-07 14:49] LABS: Anisocytosis Slight; Basophils % (A) 1 %; CH 27.9; CHCM 32.2; Eosinophils # (A) 0.1 k/uL (0-0.7); Eosinophils % (A) 2 %; HCT 34.4 % (39.0-53.0); Hypochromasia Moderate; Luc # (Auto) 0.15; Luc % (Auto) 4; Lymphocytes # (A) 0.3 k/uL (1.0-4.8); Lymphocytes % (A) 7 %; MCH 27.9 pg (25.0-35.0); MCHC 31.9 g/dL (31.0-37.0); MCV 87.6 fL (80.0-100.0); Mean Platelet Volume 7.8; Monocytes # (A) 0.3 k/uL (0-1.0); Monocytes % (A) 7 %; Neutrophils # (A) 3.2 k/uL (1.3-7.7); Neutrophils % (A) 80 %; Poikilocytosis Slight; RBC 3.92 m/uL (4.30-5.90); RDW 16.4 % (11.5-15.5); WBC (Perox) 4.68
[2017-01-07 14:55] LABS: Anion Gap 11 mmol/L; Blood Urea Nitrogen 18 mg/dL (9-20); Calcium 10.4 mg/dL (8.4-10.2); Carbon Dioxide 20 mmol/L (22-30); Chloride 109 mmol/L (98-107); Glucose 102 mg/dL (74-99); Non-African American GFR(MDRD) >60 (>60 ml/min/1.73 sqM); Potassium 3.9 mmol/L (3.5-5.1); Sodium 140 mmol/L (137-145)
[2017-01-07] MEDS ORDERED: HYDROmorphone 1 MG/ML 1 ML SYRINGE IVP PRN (17:24)
[2017-01-07] MEDS ORDERED: LACTATED RINGERS 1,000 ML IV SCH (17:30)
[2017-01-07] MEDS: ATORVASTATIN 80 MG TAB PO SCH (20:58)
[2017-01-08] MEDS: SYMBICORT 160-4.5 MCG INHALER INHALATION SCH ×2 (07:28→21:26)
[2017-01-08] MEDS: TIOTROPIUM 18 MCG/PUFF INHALER INHALATION SCH (07:28)
[2017-01-08] MEDS: METOPROLOL TARTRATE 25 MG TAB PO SCH ×2 (07:57→21:05)
[2017-01-08] MEDS ORDERED: LACTATED RINGERS 1,000 ML IV ONE ×2 (08:34→10:16)
[2017-01-08] MEDS: ONDANSETRON 4 MG/2 ML VIAL IVP PRN (08:43)
[2017-01-08] MEDS ORDERED: MIDAZOLAM 2 MG/2 ML VIAL ONE (09:20)
[2017-01-08] MEDS ORDERED: PHENYLEPHRINE-0.9% NACL SYG 1 MG/10 ML SYRINGE ONE (09:20)
[2017-01-08] MEDS ORDERED: PROPOFOL 10 MG/ML 20 ML VIAL IV ONE (09:20)
[2017-01-08] MEDS ORDERED: fentaNYL (PF) 50 MCG/ML 2 ML AMP ONE (09:20)
[2017-01-08] MEDS ORDERED: SUCCINYLCHOLINE CHLORIDE 100 MG/5 ML SYR IV ONE (09:20)
[2017-01-08] MEDS ORDERED: LIDOCAINE 1% INJ 10MG/ML (20 ML MDV) ONE (09:20)
[2017-01-08] MEDS ORDERED: SODIUM CHLORIDE 0.9% 100 ML with ceFAZolin 2,000 MG IV ONE ×2 (09:50)
[2017-01-08] MEDS ORDERED: BUPIVACAIN-EPI 0.25%-1:200,000 30 ML VIAL SQ ONE ×2 (09:57→10:11)
[2017-01-08] MEDS ORDERED: HYDROcodone/APAP 5-325MG 1 EACH TAB PO PRN (10:16)
[2017-01-08] MEDS ORDERED: NALOXONE 0.4 MG/ML 1 ML VIAL IV PRN (10:16)
--- NOTE | 2017-01-08 10:16 | P.OP ---
Date of Procedure: 01/08/17 Preoperative Diagnosis: Lymphadenopathy Postoperative Diagnosis: Lymphadenopathy Procedure(s) Performed: Excision of left inguinal lymph node Anesthesia: JEEVAN Surgeon: Quintin Lira Estimated Blood Loss (ml): 5 Pathology: other (Left inguinal lymph node) Disposition: PACU Description of Procedure: The patient's placed on the operating table in the supine position. He received general anesthesia. His abdomen was prepped and draped in the usual sterile fashion. The patient had a mass in his left groin. A standard inguinal incision was made and then using blunt and sharp dissection and electrocautery and Harmonic scissors the subcutaneous tissue divided down to the level of mass. The mass appeared to be an enlarged lymph node. Elliptical measured approximately 8 cm in diameter. Using blunt and sharp dissection and Harmonic scissors the lymph node was excised. There were other multiple enlarged lymph nodes seen. The Bovie was used for hemostasis. A 19-[place] channel drains placed a wound and brought through separate stab incision. Mark's fascia was closed with 2-0 Vicryl suture. Dermabond dressings was applied. Patient top procedure well and was sent to recovery in stable condition.
[2017-01-08] MEDS: traMADol 50 MG TAB PO SCH ×5 (10:56→21:06)
[2017-01-08] MEDS: ASPIRIN 81 MG CHEW PO SCH (10:56)
[2017-01-08] MEDS: LACTOBACILLUS ACIDOPH & BULGAR 1 EACH PACKET PO SCH (10:56)
[2017-01-08] MEDS: NYSTATIN 100,000 UNIT/GM OINT 30 GM TUBE TOPICAL SCH ×3 (10:57→21:05)
[2017-01-08 11:45] LABS: Anisocytosis Slight; Basophils % (A) 1 %; CH 27.7; CHCM 32.6; Eosinophils # (A) 0.1 k/uL (0-0.7); Eosinophils % (A) 2 %; HCT 33.9 % (39.0-53.0); HDW 4.01; HGB 10.9 gm/dL (13.0-17.5); Hypochromasia Slight; Luc # (Auto) 0.16; Luc % (Auto) 4; Lymphocytes # (A) 0.3 k/uL (1.0-4.8); Lymphocytes % (A) 7 %; MCH 27.5 pg (25.0-35.0); MCHC 32.1 g/dL (31.0-37.0); MCV 85.7 fL (80.0-100.0); Mean Platelet Volume 8.3; Monocytes # (A) 0.4 k/uL (0-1.0); Monocytes % (A) 9 %; Neutrophils # (A) 3.4 k/uL (1.3-7.7); Neutrophils % (A) 78 %; Poikilocytosis Moderate; RBC 3.96 m/uL (4.30-5.90); RDW 16.6 % (11.5-15.5); WBC 4.4 k/uL (3.8-10.6); WBC (Perox) 4.64
[2017-01-08] MEDS: MULTIVITAMINS, THERA 1 EACH TAB PO SCH (12:20)
[2017-01-08 12:26] LABS: Anion Gap 11 mmol/L; Blood Urea Nitrogen 21 mg/dL (9-20); Calcium 10.4 mg/dL (8.4-10.2); Carbon Dioxide 20 mmol/L (22-30); Chloride 110 mmol/L (98-107); Glucose 98 mg/dL (74-99); Non-African American GFR(MDRD) >60 (>60 ml/min/1.73 sqM); Potassium 3.8 mmol/L (3.5-5.1); Sodium 141 mmol/L (137-145)
[2017-01-08 12:37] LABS: INR 1.5 (<1.1); Prothrombin Time 15.1 sec (9.0-12.0)
[2017-01-08] MEDS: DOCUSATE 100 MG CAP PO SCH (21:04)
[2017-01-08] MEDS: ATORVASTATIN 80 MG TAB PO SCH (21:05)
[2017-01-09 07:17] LABS: Anisocytosis Slight; Basophils % (A) 0 %; CH 27.6; CHCM 32.4; Eosinophils # (A) 0.1 k/uL (0-0.7); Eosinophils % (A) 2 %; HCT 32.7 % (39.0-53.0); HGB 10.4 gm/dL (13.0-17.5); Hypochromasia Moderate; Luc # (Auto) 0.16; Luc % (Auto) 4; Lymphocytes # (A) 0.3 k/uL (1.0-4.8); Lymphocytes % (A) 7 %; MCH 27.5 pg (25.0-35.0); MCHC 31.9 g/dL (31.0-37.0); MCV 86.2 fL (80.0-100.0); Mean Platelet Volume 7.4; Monocytes # (A) 0.3 k/uL (0-1.0); Monocytes % (A) 9 %; Neutrophils # (A) 3.2 k/uL (1.3-7.7); Neutrophils % (A) 79 %; Poikilocytosis Slight; RDW 16.4 % (11.5-15.5); WBC 4.1 k/uL (3.8-10.6); WBC (Perox) 4.49
[2017-01-09 07:30] LABS: Anion Gap 11 mmol/L; Blood Urea Nitrogen 23 mg/dL (9-20); Calcium 10.3 mg/dL (8.4-10.2); Carbon Dioxide 20 mmol/L (22-30); Chloride 110 mmol/L (98-107); Glucose 89 mg/dL (74-99); Non-African American GFR(MDRD) >60 (>60 ml/min/1.73 sqM); Potassium 3.8 mmol/L (3.5-5.1); Sodium 141 mmol/L (137-145)
[2017-01-09] MEDS: DOCUSATE 100 MG CAP PO SCH (08:42)
[2017-01-09] MEDS: LACTOBACILLUS ACIDOPH & BULGAR 1 EACH PACKET PO SCH (08:42)
[2017-01-09] MEDS: METOPROLOL TARTRATE 25 MG TAB PO SCH (08:42)
[2017-01-09] MEDS: traMADol 50 MG TAB PO SCH ×2 (08:43→13:27)
[2017-01-09] MEDS: NYSTATIN 100,000 UNIT/GM OINT 30 GM TUBE TOPICAL SCH (08:43)
[2017-01-09] MEDS: ASPIRIN 81 MG CHEW PO SCH (08:43)
[2017-01-09 09:21] VITALS: BP 127/61; PULSE 104; RESP 20; TEMP 98.6
[2017-01-09] MEDS: SYMBICORT 160-4.5 MCG INHALER INHALATION SCH (09:46)
[2017-01-09] MEDS: TIOTROPIUM 18 MCG/PUFF INHALER INHALATION SCH (09:47)
[2017-01-09] MEDS ORDERED: LACTATED RINGERS 1,000 ML IV SCH (10:00)
--- NOTE | 2017-01-09 11:26 | P.PN ---
Subjective Date of Service 01/08/2017 Progress note being dictated for Dr. Martínez. Interval history: This is a 66-year-old gentleman admitted with mechanical fall , hypercalcemia suspicious for malignancy, extensive lymphadenopathy per CT of chest, abdomen and pelvis, unintentional weight loss and multiple other medical issues. Maintained on IV fluids .Plavix on hold for diagnostic lymph node biopsy today. Denies chest pain, palpitations or increasing shortness of breath. Calcium 10.4. Objective - Vital Signs Vital signs: Vital Signs Temp 98.1 F 01/08/17 14:48 Pulse 88 01/08/17 14:48 Resp 18 01/08/17 14:48 BP 102/56 01/08/17 14:48 Pulse Ox 93 L 01/08/17 14:48 Intake & Output 01/08/17 01/08/17 01/09/17 06:59 18:59 06:59 Intake Total 850 Output Total 65 Balance 785 Intake: IV 650 Intake, IV Titration 200 Amount Lactated Ringers 1,000 ml 200 @ 50 mls/hr IV .Q20H [facility] Rx#:[id number] Output: Drainage 50 Left Groin 50 Estimated Blood Loss 15 Other: Voiding Method Toilet Toilet Urinal Urinal # Voids 1 - Exam PHYSICAL EXAM: VITAL SIGNS: As above GENERAL: [Sitting up at bedside, no acute distress HEENT: [Pupils equal conjunctiva normal.] NECK: [Supple, no JVD] RESPIRATORY EFFORT:[Mildly increased] LUNGS: [Good air entry, our bases diminished, mild expiratory wheezing, no crackles, no rhonchi] CARDIOVASCULAR[regular S1 and S2, no rubs murmurs or gallops, positive edema] GI: [Abdomen soft, nontender, positive bowel sounds.] PSYCH: [Alert and oriented -3, mood and affect normal.] NEURO: No focal deficits - Labs CBC & Chem 7: 01/09/17 07:03 01/09/17 07:03 Labs: Abnormal Lab Results - Last 24 Hours (Table) 01/08/17 01/08/17 01/08/17 Range/Units 11:31 11:31 11:31 RBC 3.96 L (4.30-5.90) m/uL Hgb 10.9 L (13.0-17.5) gm/dL Hct 33.9 L (39.0-53.0) % RDW 16.6 H (11.5-15.5) % Lymphocytes # 0.3 L (1.0-4.8) k/uL PT 15.1 H (9.0-12.0) sec Chloride 110 H (98-107) mmol/L Carbon Dioxide 20 L (22-30) mmol/L BUN 21 H (9-20) mg/dL Calcium 10.4 H (8.4-10.2) mg/dL Microbiology - Last 24 Hours (Table) 01/02/17 10:04 Blood Culture - Final Blood No Growth after 144 hours Assessment and Plan Plan: 1. Hypercalcemia, extensive lymphadenopathy per CT of chest abdomen and pelvis , suspect malignancy, diagnostic biopsy pending. 2. [Status post Mechanical fall]. 3. [COPD, stable]. 4. [Unintentional weight loss]. 5. [CAD status post recent stent July 2016]. 6. [Hyperuricemia]. 7. [Hypertension]. 8. Mild bilateral hydronephrosis suspect related to lymphadenopathy Plan: Continue on current medication regime ,monitoring and symptomatic treatment. Diagnostic biopsy pending. Discharge planning in progress for subacute rehab. post procedure . Prognosis guarded given multiple complex medical issues. Further recommendations to follow. The impression and plan of care has been dictated as directed. : I performed a H&P examination of this patient and discussed the same with the dictator. I agree with the dictator's note. Any additional findings/opinions/ etc. will be noted.
--- NOTE | 2017-01-09 11:39 | P.DS ---
Providers Date of admission: 01/02/17 09:50 Expected date of discharge: 01/09/17 Attending physician: MD Dr. Tanya Adkins Consults: 01/04/17 08:07 Consult Physician Urgent Consulting Provider: Blade Pike Consult Reason/Comments: lymphoma Do you want consulting provider notified?: Yes 01/04/17 19:35 Consult Physician Routine Consulting Provider: Quintin Lira Consult Reason/Comments: lymph node biopsy Do you want consulting provider notified?: Yes Primary care physician: [facility] Course: Final Diagnoses: 1. Hypercalcemia, extensive lymphadenopathy per CT of chest abdomen and pelvis , suspect malignancy, status post biopsy, results pending 2. [Status post Mechanical fall]. 3. [COPD, stable]. 4. [Unintentional weight loss]. 5. [CAD status post recent stent July 2016]. 6. [Hyperuricemia]. 7. [Hypertension]. 8. Mild bilateral hydronephrosis suspect related to lymphadenopathy Hospital course: This is a 66-year-old gentleman admitted with mechanical fall, hypercalcemia suspicious for malignancy, extensive lymphadenopathy per CT of chest, abdomen and pelvis, unintentional weight loss and multiple other medical issues. Status post treatment with pamidronate and IV fluids. Calcium had decreased to 9.9 then increased up to 10.3. Status post lymph node biopsy, tolerated procedure well. Pathology pending. Patient has been cleared by all consults for discharge. Patient is being discharged to [facility] rehab in a stable condition with guarded prognosis Patient Condition at Discharge: Stable Plan - Discharge Summary New Discharge Prescriptions: traMADol HCl [Ultram] 50 mg PO QID #20 tab Discharge Medication List Budesonide/Formoterol Fumarate [Symbicort 160-4.5 Mcg Inhaler] 2 puff INHALATION RT-BID 01/21/15 [History] L.acidoph,Paracasei, B.lactis [Probiotic] 1 cap PO DAILY 07/26/16 [History] Tiotropium 18 Mcg/Puff [Spiriva] 1 cap INHALATION RT-DAILY 07/26/16 [History] Aspirin 325 mg PO DAILY #30 tab 07/28/16 [Rx] Atorvastatin [Lipitor] 80 mg PO HS #30 tab 07/28/16 [Rx] Clopidogrel [Plavix] 75 mg PO DAILY #30 tab 07/28/16 [Rx] Nitroglycerin Sl Tabs [Nitrostat] 0.4 mg SUBLINGUAL Q5M PRN #25 tab 07/28/16 [Rx ] Docusate [Colace] 100 mg PO BID cap 01/08/17 [Rx] Ergocalciferol [Vitamin D2 (DRISDOL)] 50,000 unit PO Q7D cap 01/08/17 [Rx] Ipratropium-Albuterol Nebulize [Duoneb 0.5 mg-3 mg/3 ml Soln] 3 ml INHALATION QID #0 ampul.neb 01/08/17 [Rx] Metoprolol Tartrate [Lopressor] 25 mg PO BID tab 01/08/17 [Rx] Multivitamins, Thera [Multivitamin] 1 each PO DAILY@1200 tab 01/08/17 [Rx] Nystatin 100,000 Unit/gm Oint [Mycostatin Oint] 1 applic TOPICAL TID applic 12/26 [Rx] traMADol HCl [Ultram] 50 mg PO QID #20 tab 01/08/17 [Rx] Follow up Appointment(s)/Referral(s): Blade Pike MD [STAFF PHYSICIAN] - 1 Week Jseus Larsen MD [STAFF PHYSICIAN] - 3 Days (While at ECF) Андрей Lino MD [Primary Care Provider] - 1 Week (After DC for ECF) Quintin Lira MD [STAFF PHYSICIAN] - 1 Week Activity/Diet/Wound Care/Special Instructions: CBC, BMP in 3 days Diet: Activity: Discharge Disposition: TRANSFER TO SNF/ECF
[2017-01-09] MEDS: MULTIVITAMINS, THERA 1 EACH TAB PO SCH (13:27)
--- NOTE | 2017-01-09 14:16 | P.PN ---
Subjective Principal diagnosis: Adenopathy Patient is a 66-year-old male admitted through the emergency department with complains of general weakness and mechanical fall. Patient was noted to have a calcium level of 14.5 on admission. Patient subsequently underwent a computed tomography scan of the chest, abdomen and pelvis to rule out underlying malignancy with evidence of extensive adenopathy. Patient was evaluated by Dr. Pike for oncology service and consult was placed for excisional lymph node biopsy for tissue diagnosis. Patient is status post excision of left inguinal lymph node, postop day #1. Patient is doing well. Denies chills , nausea, vomiting, shortness of breath or chest pain. Incisional pain controlled. Afebrile. WBC 4.1. MIKA drain with 30 ml of serosanguineous drainage last 24 hours. Objective - Vital Signs Vital signs: Vital Signs Temp 98.6 F 01/09/17 07:00 Pulse 104 H 01/09/17 07:00 Resp 20 01/09/17 08:00 BP 127/61 01/09/17 07:00 Pulse Ox 93 L 01/09/17 07:00 Intake & Output 01/08/17 01/09/17 01/09/17 18:59 06:59 18:59 Intake Total 850 600 Output Total 65 30 Balance 785 570 Intake: IV 650 600 Lactated Ringers 1,000 ml 600 @ 50 mls/hr IV .Q20H [facility] Rx#:[id number] Intake, IV Titration 200 Amount Lactated Ringers 1,000 ml 200 @ 50 mls/hr IV .Q20H [facility] Rx#:[id number] Output: Drainage 50 30 Left Groin 50 30 Estimated Blood Loss 15 Other: Voiding Method Toilet Toilet Toilet Urinal # Voids 1 - Exam GENERAL: Pt awake and alert, well-nourished, and in no acute distress. LUNGS: Breath sounds clear to auscultation bilaterally. No wheezes, rales, or rhonchi. HEART: Heart S1, S2, no S3 or S4. Regular rate and rhythm. No murmurs, rubs or gallops. ABDOMEN: Soft, mild incisional tenderness, nondistended, normoactive bowel sounds. No peritoneal signs. NEUROLOGICAL: Pt oriented x 3. - Labs CBC & Chem 7: 01/09/17 07:03 01/09/17 07:03 Labs: Abnormal Lab Results - Last 24 Hours (Table) 01/09/17 01/09/17 Range/Units 07:03 07:03 RBC 3.80 L (4.30-5.90) m/uL Hgb 10.4 L (13.0-17.5) gm/dL Hct 32.7 L (39.0-53.0) % RDW 16.4 H (11.5-15.5) % Lymphocytes # 0.3 L (1.0-4.8) k/uL Chloride 110 H (98-107) mmol/L Carbon Dioxide 20 L (22-30) mmol/L BUN 23 H (9-20) mg/dL Calcium 10.3 H (8.4-10.2) mg/dL Microbiology - Last 24 Hours (Table) 01/02/17 10:04 Blood Culture - Final Blood No Growth after 144 hours Assessment and Plan Plan: Impression: 1. Extensive lymphadenopathy status post excision of left inguinal lymph node. 2. Intertrigo to bilateral groin area Plan: 1. Continue to monitor patient. Continue drain management. Continue Nystatin to groin area. Patient is a high risk of infection secondary to body habitus. Patient is stable for discharge from a surgical standpoint. Patient will follow -up with Dr. Lira in a week after discharge. The above impression and plan have been discussed and directed by Dr. Lira. Rose VANN acting as scribe for Dr. Lira.
== END 2017-01-09 13:40 | DRG 829 ==
LOC: EC 06:09 → 6SEL 09:50 → 5ONC 01-04 16:31
PROVIDERS: ADMIT Internal Medicine; ATTEND Internal Medicine
PROC: 07BJ0ZX Excision of Left Inguinal Lymphatic, Open Approach, Diagnostic (ICD-10-PCS; principal; 2017-01-08 09:10)
DX: C80.1 Malignant (primary) neoplasm, unspecified (principal); N17.9 Acute kidney failure, unspecified; E87.2 Acidosis; N13.30 Unspecified hydronephrosis; E83.52 Hypercalcemia; I50.9 Heart failure, unspecified; E86.0 Dehydration; I10 Essential (primary) hypertension; J44.9 Chronic obstructive pulmonary disease, unspecified; R59.1 Generalized enlarged lymph nodes; G47.33 Obstructive sleep apnea (adult) (pediatric); I25.10 Atherosclerotic heart disease of native coronary artery without angina pectoris; I25.2 Old myocardial infarction; J45.909 Unspecified asthma, uncomplicated; L30.4 Erythema intertrigo; F32.9 Major depressive disorder, single episode, unspecified; E79.0 Hyperuricemia without signs of inflammatory arthritis and tophaceous disease; E66.9 Obesity, unspecified; Z68.41 Body mass index [BMI] 40.0-44.9, adult; Z79.82 Long term (current) use of aspirin; Z79.02 Long term (current) use of antithrombotics/antiplatelets; Z79.899 Other long term (current) drug therapy; Z88.1 Allergy status to other antibiotic agents; Z88.2 Allergy status to sulfonamides; Z87.891 Personal history of nicotine dependence; Z95.5 Presence of coronary angioplasty implant and graft; Z82.49 Family history of ischemic heart disease and other diseases of the circulatory system; W01.0XXA Fall on same level from slipping, tripping and stumbling without subsequent striking against object, initial encounter; Y92.009 Unspecified place in unspecified non-institutional (private) residence as the place of occurrence of the external cause
CPT/HCPCS: 36415; 71010; 71020; 71260; 73521; 74177; 80048; 80053; 81001; 82306; 82308; 82550; 82553; 82652; 83605; 83735; 83970; 84100; 84165; 84166; 84443; 84484; 84550; 85025; 85610; 85730; 87040; 87086; 88307; 88341; 88342; 88377; 93005; 94640; 96361; 96365; 99285

== ENCOUNTER 2017-01-21 13:39 | Inpatient (IN) | payer MEDICARE, BC ==
[2017-01-21] MEDS ORDERED: SODIUM CHLORIDE 0.9% 1,000 ML IV ONE ×3 (15:01→18:48)
--- NOTE | 2017-01-21 15:04 | ED ---
General Adult HPI - General Chief complaint: Altered Mental Status Stated complaint: alter mental status Time Seen by Provider: 01/21/17 14:00 Source: family, EMS, RN notes reviewed Mode of arrival: EMS Limitations: altered mental status - History of Present Illness Initial comments: This is a 66-year-old male presents emergency Department who was recently diagnosed with lymphoma. She comes into the emergency department from a group home where they sent him in because he is weak overall and is not eating over the last 5 days and is not drinking as well over the last 5 days. Patient states it hurts to eat that's why side eating. Patient denies any other pain. Family states he's altered but he's been this way for over a month. Patient denies headache patient denies numbness or focal weakness. Patient denies any chest pain or palpitations patient denies any difficulty breathing of breath of breath per patient denies any recent fever or chills. Patient denies abdominal pain. - Related Data Home Medications Medication Instructions Recorded Confirmed Budesonide/Formoterol Fumarate 2 puff INHALATION RT-BID 01/21/15 01/21/17 [Symbicort 160-4.5 Mcg Inhaler] L.acidoph,Paracasei, B.lactis 1 cap PO DAILY@1700 07/26/16 01/21/17 [Probiotic] Tiotropium 18 Mcg/Puff [Spiriva] 1 cap INHALATION RT-DAILY 07/26/16 01/21/17 Acetaminophen Tab [Tylenol Tab] 650 mg PO Q4H PRN 01/21/17 01/21/17 Aspirin 325 mg PO DIRECTED 01/21/17 01/21/17 Atorvastatin [Lipitor] 80 mg PO HS@2100 01/21/17 01/21/17 Bisacodyl 10 mg RECTAL DAILY PRN 01/21/17 01/21/17 Clopidogrel [Plavix] 75 mg PO DIRECTED 01/21/17 01/21/17 Docusate [Colace] 100 mg PO BID@0800,1700 01/21/17 01/21/17 Dronabinol [Marinol] 2.5 mg PO BID@1200,1700 01/21/17 01/21/17 Ergocalciferol [Vitamin D2 50,000 unit PO TU 01/21/17 01/21/17 (DRISDOL)] Ferrous Sulfate [Feosol] 325 mg PO DAILY@1700 01/21/17 01/21/17 Ipratropium-Albuterol Nebulize 3 ml INHALATION RT-QID 01/21/17 01/21/17 [Duoneb 0.5 mg-3 mg/3 ml Soln] Lactose-Reduced Food [Ensure Plus] 1 can PO BID@0800,1700 01/21/17 01/21/17 Magnesium Hydroxide [Milk of 2,400 mg PO ONCE PRN 01/21/17 01/21/17 Magnesia] Metoprolol Tartrate [Lopressor] 25 mg PO BID@0800,2100 01/21/17 01/21/17 Multivitamins, Thera [Multivitamin] 1 tab PO DAILY@1700 01/21/17 01/21/17 Na Phos,M-B/Na Phos,Di-Ba [Fleet 133 ml RECTAL DAILY PRN 01/21/17 01/21/17 Adult] Ondansetron [Zofran] 4 mg PO Q8H PRN 01/21/17 01/21/17 Previous Rx's Medication Instructions Recorded Nitroglycerin Sl Tabs [Nitrostat] 0.4 mg SUBLINGUAL Q5M PRN #25 tab 07/28/16 traMADol HCl [Ultram] 50 mg PO QID #20 tab 01/08/17 Allergies Allergy/AdvReac Type Severity Reaction Status Date / Time bacitracin zinc Allergy Swelling Verified 01/21/17 14:16 [From Cortisporin] neomycin sulfate Allergy Swelling Verified 01/21/17 14:16 [From Cortisporin] polymyxin B sulfate Allergy Swelling Verified 01/21/17 14:16 [From Cortisporin] sulfamethoxazole Allergy Rash/Hives Verified 01/21/17 14:16 [From Bactrim] trimethoprim [From Bactrim] Allergy Rash/Hives Verified 01/21/17 14:16 Review of Systems ROS Statement: Those systems with pertinent positive or pertinent negative responses have been documented in the HPI. ROS Other: All systems not noted in ROS Statement are negative. Past Medical History Past Medical History: Asthma, COPD, Hypertension, Myocardial Infarction ([place]), Sleep Apnea/CPAP/BIPAP Additional Past Medical History / Comment(s): leaking heart valve Last Myocardial Infarction Date:: 12/2016 History of Any Multi-Drug Resistant Organisms: None Reported Past Surgical History: Ear Surgery, Heart Catheterization, Heart Catheterization With Stent, Tonsillectomy Additional Past Surgical History / Comment(s): Stomach biopsy 3 weeks ago with MIKA drain Past Anesthesia/Blood Transfusion Reactions: No Reported Reaction Date of Last Stent Placement:: 07/2016 Past Psychological History: Depression Additional Psychological History / Comment(s): some belives he is but no diagnosis Smoking Status: Former smoker Past Alcohol Use History: None Reported Past Drug Use History: None Reported - Past Family History Father Family Medical History: Respiratory Disorder Additional Family Medical History / Comment(s): from [facility] Mother Family Medical History: Cancer, Deep Vein Thrombosis (DVT) Additional Family Medical History / Comment(s): breast, bone, and brain CA, heart attack General Exam - General Exam Comments Initial Comments: GENERAL: Patient is well-developed and well-nourished. Patient is nontoxic and well- hydrated and is in mild distress. Patient is lethargic ENT: Neck is soft and supple. No significant lymphadenopathy is noted. Oropharynx is clear. Mucous membranes. Neck has full range of motion without eliciting any pain. EYES: The sclera were anicteric and conjunctiva were pink and moist. Extraocular movements were intact and pupils were equal round and reactive to light. Eyelids were unremarkable. PULMONARY: Unlabored respirations. Good breath sounds bilaterally. No audible rales rhonchi or wheezing was noted. CARDIOVASCULAR: There is a regular rate and rhythm without any murmurs gallops or rubs. ABDOMEN: Soft and nontender with normal bowel sounds. No palpable organomegaly was noted. There is no palpable pulsatile mass. SKIN: Skin is clear with no lesions or rashes and otherwise unremarkable. NEUROLOGIC: Patient is alert and oriented x3. Cranial nerves II through XII are grossly intact. Motor and sensory are also intact. Normal speech, volume and content. Symmetrical smile. MUSCULOSKELETAL: Normal extremities with adequate strength and full range of motion. No lower extremity swelling or edema. No calf tenderness. LYMPHATICS: No significant lymphadenopathy is noted PSYCHIATRIC: Normal psychiatric evaluation. Normal interpersonal interactions appears functionally intact in deals appropriately with others. No signs of depression. No signs of anxiety. Limitations: altered mental status Course Vital Signs 01/21/17 01/21/17 01/21/17 13:54 14:28 15:19 Temperature 98.6 F 100.5 F H Pulse Rate 91 98 96 Respiratory 18 18 16 Rate Blood Pressure 108/64 117/58 118/63 O2 Sat by Pulse 96 94 L 96 Oximetry 01/21/17 01/21/17 01/21/17 15:50 16:48 17:44 Temperature 97.7 F 96.3 F L Pulse Rate 99 91 90 Respiratory 16 16 17 Rate Blood Pressure 120/71 106/60 102/59 O2 Sat by Pulse 95 98 96 Oximetry 01/21/17 18:20 Temperature Pulse Rate 89 Respiratory 16 Rate Blood Pressure 113/63 O2 Sat by Pulse 96 Oximetry Medical Decision Making - Medical Decision Making EKG shows a normal sinus rhythm at [address] interval is 128 QRSs 86 QT interval 360 QTC is 450. Patient's EKG shows no ST segment elevation or depression or T-wave abdomen is noted. Patient has no signs of infection so antibodies were not started this time. I spoke with Dr. Cordova agreed to admit the patient for severe dehydration and I admitted the patient and continue fluids on the floor. - Lab Data Result diagrams: 01/21/17 14:19 01/21/17 14:19 Lab Results 01/21/17 01/21/17 01/21/17 Range/Units 14:19 14:19 14:19 WBC 5.8 (3.8-10.6) k/uL RBC 3.89 L (4.30-5.90) m/uL Hgb 10.8 L (13.0-17.5) gm/dL Hct 34.8 L (39.0-53.0) % MCV 89.5 (80.0-100.0) fL MCH 27.7 (25.0-35.0) pg MCHC 31.0 (31.0-37.0) g/dL RDW 18.0 H (11.5-15.5) % Plt Count 170 (150-450) k/uL Neutrophils % 83 % Lymphocytes % 5 % Monocytes % 6 % Eosinophils % 2 % Basophils % 1 % Neutrophils # 4.8 (1.3-7.7) k/uL Lymphocytes # 0.3 L (1.0-4.8) k/uL Monocytes # 0.3 (0-1.0) k/uL Eosinophils # 0.1 (0-0.7) k/uL Basophils # 0.0 (0-0.2) k/uL Hypochromasia Marked Poikilocytosis Moderate Anisocytosis Slight PT (9.0-12.0) sec INR (<1.1) APTT (22.0-30.0) sec Sodium 156 H (137-145) mmol/L Potassium 5.2 H (3.5-5.1) mmol/L Chloride 119 H (98-107) mmol/L Carbon Dioxide 24 (22-30) mmol/L Anion Gap 13 mmol/L BUN 34 H (9-20) mg/dL Creatinine 0.92 (0.66-1.25) mg/dL Est GFR (MDRD) Af Amer >60 (>60 ml/min/1.73 sqM) Est GFR (MDRD) Non-Af >60 (>60 ml/min/1.73 sqM) Glucose 98 (74-99) mg/dL POC Glucose (mg/dL) (75-99) mg/dL POC Glu Cotton Tipper ID Plasma Lactic Acid Ronnie (0.7-2.0) mmol/L Calcium 10.3 H (8.4-10.2) mg/dL Total Bilirubin 1.8 H (0.2-1.3) mg/dL AST 79 H (17-59) U/L ALT 28 (21-72) U/L Alkaline Phosphatase 79 (38-126) U/L Total Creatine Kinase 37 L (55-170) U/L CK-MB (CK-2) 0.4 (0.0-2.4) ng/mL CK-MB (CK-2) Rel Index 1.1 Troponin I <0.012 (0.000-0.034) ng/mL Total Protein 5.8 L (6.3-8.2) g/dL Albumin 2.6 L (3.5-5.0) g/dL Urine Color Urine Appearance (Clear) Urine pH (5.0-8.0) Ur Specific [place] (1.001-1.035) Urine Protein (Negative) Urine Glucose (UA) (Negative) Urine Ketones (Negative) Urine Blood (Negative) Urine Nitrite (Negative) Urine Bilirubin (Negative) Urine Urobilinogen (<2.0) mg/dL Ur Leukocyte Esterase (Negative) Urine Opiates Screen (NotDetected) Ur Oxycodone Screen (NotDetected) Urine Methadone Screen (NotDetected) Ur Propoxyphene Screen (NotDetected) Ur Barbiturates Screen (NotDetected) U Tricyclic Antidepress (NotDetected) Ur Phencyclidine Scrn (NotDetected) Ur Amphetamines Screen (NotDetected) U Methamphetamines Scrn (NotDetected) U Benzodiazepines Scrn (NotDetected) Urine Cocaine Screen (NotDetected) U Marijuana (THC) Screen (NotDetected) 01/21/17 01/21/17 01/21/17 Range/Units 14:19 14:19 15:18 WBC (3.8-10.6) k/uL RBC (4.30-5.90) m/uL Hgb (13.0-17.5) gm/dL Hct (39.0-53.0) % MCV (80.0-100.0) fL MCH (25.0-35.0) pg MCHC (31.0-37.0) g/dL RDW (11.5-15.5) % Plt Count (150-450) k/uL Neutrophils % % Lymphocytes % % Monocytes % % Eosinophils % % Basophils % % Neutrophils # (1.3-7.7) k/uL Lymphocytes # (1.0-4.8) k/uL Monocytes # (0-1.0) k/uL Eosinophils # (0-0.7) k/uL Basophils # (0-0.2) k/uL Hypochromasia Poikilocytosis Anisocytosis PT 18.7 H (9.0-12.0) sec INR 1.9 (<1.1) APTT 24.8 (22.0-30.0) sec Sodium (137-145) mmol/L Potassium (3.5-5.1) mmol/L Chloride (98-107) mmol/L Carbon Dioxide (22-30) mmol/L Anion Gap mmol/L BUN (9-20) mg/dL Creatinine (0.66-1.25) mg/dL Est GFR (MDRD) Af Amer (>60 ml/min/1.73 sqM) Est GFR (MDRD) Non-Af (>60 ml/min/1.73 sqM) Glucose (74-99) mg/dL POC Glucose (mg/dL) 112 H (75-99) mg/dL POC Glu Cotton Tipper ID Loyda Narayan A Plasma Lactic Acid Ronnie 2.7 H* (0.7-2.0) mmol/L Calcium (8.4-10.2) mg/dL Total Bilirubin (0.2-1.3) mg/dL AST (17-59) U/L ALT (21-72) U/L Alkaline Phosphatase (38-126) U/L Total Creatine Kinase (55-170) U/L CK-MB (CK-2) (0.0-2.4) ng/mL CK-MB (CK-2) Rel Index Troponin I (0.000-0.034) ng/mL Total Protein (6.3-8.2) g/dL Albumin (3.5-5.0) g/dL Urine Color Urine Appearance (Clear) Urine pH (5.0-8.0) Ur Specific [place] (1.001-1.035) Urine Protein (Negative) Urine Glucose (UA) (Negative) Urine Ketones (Negative) Urine Blood (Negative) Urine Nitrite (Negative) Urine Bilirubin (Negative) Urine Urobilinogen (<2.0) mg/dL Ur Leukocyte Esterase (Negative) Urine Opiates Screen (NotDetected) Ur Oxycodone Screen (NotDetected) Urine Methadone Screen (NotDetected) Ur Propoxyphene Screen (NotDetected) Ur Barbiturates Screen (NotDetected) U Tricyclic Antidepress (NotDetected) Ur Phencyclidine Scrn (NotDetected) Ur Amphetamines Screen (NotDetected) U Methamphetamines Scrn (NotDetected) U Benzodiazepines Scrn (NotDetected) Urine Cocaine Screen (NotDetected) U Marijuana (THC) Screen (NotDetected) 01/21/17 01/21/17 Range/Units 15:50 18:30 WBC (3.8-10.6) k/uL RBC (4.30-5.90) m/uL Hgb (13.0-17.5) gm/dL Hct (39.0-53.0) % MCV (80.0-100.0) fL MCH (25.0-35.0) pg MCHC (31.0-37.0) g/dL RDW (11.5-15.5) % Plt Count (150-450) k/uL Neutrophils % % Lymphocytes % % Monocytes % % Eosinophils % % Basophils % % Neutrophils # (1.3-7.7) k/uL Lymphocytes # (1.0-4.8) k/uL Monocytes # (0-1.0) k/uL Eosinophils # (0-0.7) k/uL Basophils # (0-0.2) k/uL Hypochromasia Poikilocytosis Anisocytosis PT (9.0-12.0) sec INR (<1.1) APTT (22.0-30.0) sec Sodium (137-145) mmol/L Potassium (3.5-5.1) mmol/L Chloride (98-107) mmol/L Carbon Dioxide (22-30) mmol/L Anion Gap mmol/L BUN (9-20) mg/dL Creatinine (0.66-1.25) mg/dL Est GFR (MDRD) Af Amer (>60 ml/min/1.73 sqM) Est GFR (MDRD) Non-Af (>60 ml/min/1.73 sqM) Glucose (74-99) mg/dL POC Glucose (mg/dL) (75-99) mg/dL POC Glu Cotton Tipper ID Plasma Lactic Acid Ronnie 2.9 H* (0.7-2.0) mmol/L Calcium (8.4-10.2) mg/dL Total Bilirubin (0.2-1.3) mg/dL AST (17-59) U/L ALT (21-72) U/L Alkaline Phosphatase (38-126) U/L Total Creatine Kinase (55-170) U/L CK-MB (CK-2) (0.0-2.4) ng/mL CK-MB (CK-2) Rel Index Troponin I (0.000-0.034) ng/mL Total Protein (6.3-8.2) g/dL Albumin (3.5-5.0) g/dL Urine Color Yellow Urine Appearance Clear (Clear) Urine pH 5.0 (5.0-8.0) Ur Specific [place] 1.016 (1.001-1.035) Urine Protein Trace H (Negative) Urine Glucose (UA) Negative (Negative) Urine Ketones Trace H (Negative) Urine Blood Negative (Negative) Urine Nitrite Negative (Negative) Urine Bilirubin Negative (Negative) Urine Urobilinogen 3.0 (<2.0) mg/dL Ur Leukocyte Esterase Negative (Negative) Urine Opiates Screen Not Detected (NotDetected) Ur Oxycodone Screen Not Detected (NotDetected) Urine Methadone Screen Not Detected (NotDetected) Ur Propoxyphene Screen Not Detected (NotDetected) Ur Barbiturates Screen Not Detected (NotDetected) U Tricyclic Antidepress Not Detected (NotDetected) Ur Phencyclidine Scrn Not Detected (NotDetected) Ur Amphetamines Screen Not Detected (NotDetected) U Methamphetamines Scrn Not Detected (NotDetected) U Benzodiazepines Scrn Not Detected (NotDetected) Urine Cocaine Screen Not Detected (NotDetected) U Marijuana (THC) Screen Detected H (NotDetected) Disposition Clinical Impression: Dehydration, Generalized weakness Disposition: ADMITTED IP TO THIS HOSP Time of Disposition: 18:48
[2017-01-21] MEDS ORDERED: ACETAMINOPHEN IV (For NPO) 1,000 MG in SALINE 100 100ML.BAG IVPB STA (15:13)
[2017-01-21 15:16] LABS: Anisocytosis Slight; Basophils % (A) 1 %; CH 27.6; CHCM 31.3; Eosinophils # (A) 0.1 k/uL (0-0.7); Eosinophils % (A) 2 %; HCT 34.8 % (39.0-53.0); HDW 4.15; HGB 10.8 gm/dL (13.0-17.5); Hypochromasia Marked; Luc # (Auto) 0.18; Luc % (Auto) 3; Lymphocytes # (A) 0.3 k/uL (1.0-4.8); Lymphocytes % (A) 5 %; MCH 27.7 pg (25.0-35.0); MCV 89.5 fL (80.0-100.0); Mean Platelet Volume 8.9; Monocytes # (A) 0.3 k/uL (0-1.0); Monocytes % (A) 6 %; Neutrophils # (A) 4.8 k/uL (1.3-7.7); Neutrophils % (A) 83 %; Poikilocytosis Moderate; RBC 3.89 m/uL (4.30-5.90); WBC 5.8 k/uL (3.8-10.6); WBC (Perox) 6.25
[2017-01-21 15:24] LABS: INR 1.9 (<1.1); Partial Thromboplastin Time 24.8 sec (22.0-30.0); Prothrombin Time 18.7 sec (9.0-12.0)
[2017-01-21 15:30] LABS: Glucose,Whole Blood 112 mg/dL (75-99)
[2017-01-21 15:32] LABS: Creatine Kinase 37 U/L (55-170)
[2017-01-21 15:46] LABS: Creatine Kinase MB 0.4 ng/mL (0.0-2.4); Troponin I <0.012 ng/mL (0.000-0.034)
--- NOTE | 2017-01-21 15:47 | XR ---
EXAMINATION TYPE: XR chest 2V DATE OF EXAM: 01/21/2017 3:41 PM COMPARISON: Prior chest x-ray 03 January 2017 HISTORY: Altered mental status TECHNIQUE: Frontal and lateral views of the chest are obtained. FINDINGS: Patient is rotated. Accentuation of heart size may be technical. No evident pneumothorax. Exam is expiratory. There are overlying cardiac leads. Possible calcified left hilar node. Lateral ex am shows motion. Suspect blunting of the posterior costophrenic angle. IMPRESSION: Possible left lower lobe atelectasis and associated effusion, correlate to exclude pneum onia. Follow-up is recommended. Suboptimal technique.
[2017-01-21 15:54] LABS: ALT 28 U/L (21-72); Alkaline Phosphatase 79 U/L (38-126); Anion Gap 13 mmol/L; Calcium 10.3 mg/dL (8.4-10.2); Carbon Dioxide 24 mmol/L (22-30); Chloride 119 mmol/L (98-107); Glucose 98 mg/dL (74-99); Non-African American GFR(MDRD) >60 (>60 ml/min/1.73 sqM); Sodium 156 mmol/L (137-145); Total Bilirubin 1.8 mg/dL (0.2-1.3); Total Protein 5.8 g/dL (6.3-8.2)
[2017-01-21 15:55] LABS: Potassium 5.2 mmol/L (3.5-5.1)
[2017-01-21 15:56] LABS: AST 79 U/L (17-59); Blood Urea Nitrogen 34 mg/dL (9-20)
[2017-01-21 16:23] LABS: Appearance,Urine Clear (Clear); Bilirubin,Urine Negative (Negative); Glucose,Urine (UA) Negative (Negative); Ketones,Urine Trace (Negative); Leukocyte Esterase,Urine Negative (Negative); Nitrite,Urine Negative (Negative); Protein,Urine Trace (Negative); Specific Gravity,Urine 1.016 (1.001-1.035); UA Billing (MACRO vs. MICRO) CHEM
[2017-01-21] MEDS ORDERED: RX INFO: IV CONTRAST WAS GIVEN 1 EACH MISC MISCELLANE PRN (19:00)
[2017-01-21] MEDS ORDERED: ONDANSETRON 4 MG TAB PO PRN (20:57)
[2017-01-21] MEDS ORDERED: MAGNESIUM HYDROXIDE 2,400 MG/10 ML CUP PO PRN (20:57)
[2017-01-21] MEDS ORDERED: ACETAMINOPHEN TAB 325 MG TAB PO PRN (20:57)
[2017-01-21] MEDS ORDERED: NITROGLYCERIN SL TABS 0.4 MG TAB SUBLINGUAL PRN (20:57)
[2017-01-21] MEDS: traMADol 50 MG TAB PO SCH (22:19)
[2017-01-21] MEDS: ATORVASTATIN 80 MG TAB PO SCH (22:19)
[2017-01-21] MEDS: METOPROLOL TARTRATE 25 MG TAB PO SCH (22:19)
[2017-01-22] MEDS: IPRATROPIUM-ALBUTEROL 3 ML NEB INHALATION SCH ×3 (07:57→20:14)
[2017-01-22] MEDS ORDERED: SYMBICORT 160-4.5 MCG INHALER INHALATION SCH (08:00)
[2017-01-22] MEDS ORDERED: TIOTROPIUM 18 MCG/PUFF INHALER INHALATION SCH (08:00)
[2017-01-22] MEDS ORDERED: DOCUSATE 100 MG CAP PO SCH (08:00)
[2017-01-22] MEDS: traMADol 50 MG TAB PO SCH ×4 (09:26→22:26)
[2017-01-22] MEDS: METOPROLOL TARTRATE 25 MG TAB PO SCH ×2 (09:26→22:32)
[2017-01-22] MEDS: DRONABINOL 2.5 MG CAP PO SCH ×2 (12:25→17:44)
--- NOTE | 2017-01-22 13:47 | P.GSCN ---
History of Present Illness Consult date: 01/22/17 Reason for Consult: Possible drainage infection and Port-A-Cath placement. Requesting physician: Kerline Rodriguez History of present illness: Patient is a 66-year-old male admitted through the emergency department with complaints of generalized weakness and severe dehydration. Patient was recently hospitalized for extensive lymphadenopathy and underwent excision of left inguinal lymph node for tissue biopsy with placement of Jeff -Eubanks drain on 01/08/2017. Lymph node biopsy positive for diffuse large B- cell lymphoma. Apparently patient was discharged to the extended care facility where his oral intake had been decreased over the last 5 days. Upon admission , patient did have a temperature of 100.5. Lactic acid was elevated at 2.7 with repeat lactic acid of 2.9. No evidence of leukocytosis. Surgical consult requested for possible drain infection and Port-A-Cath placement. Patient is confused and an unreliable historian. Most of information taken from chart and nursing staff. Past Medical History Past Medical History: Asthma, COPD, Hypertension, Myocardial Infarction ([place]), Sleep Apnea/CPAP/BIPAP Additional Past Medical History / Comment(s): pt poor historian and no family availbale at [facility] of this admit.lleaking heart valve, per [facility] paperwork- lymphoma,cad,falls, wt loss Last Myocardial Infarction Date:: 12/2016 History of Any Multi-Drug Resistant Organisms: None Reported Past Surgical History: Ear Surgery, Heart Catheterization, Heart Catheterization With Stent, Tonsillectomy Additional Past Surgical History / Comment(s): previously charted "Stomach biopsy 3 weeks ago with MIKA drain", lt inguinal lymph node bx Past Anesthesia/Blood Transfusion Reactions: No Reported Reaction Date of Last Stent Placement:: 07/2016 Past Psychological History: Depression Additional Psychological History / Comment(s): pt currently at [facility], transfer paperwork noted he is a total lift not ambularoy, incont urine/stool. 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 Smoking Status: Former smoker Past Alcohol Use History: None Reported Additional Past Alcohol Use History / Comment(s): unable to obtain from pt when he started or quit Past Drug Use History: None Reported Additional Drug Use History / Comment(s): denies any use - Past Family History Father Family Medical History: Respiratory Disorder Additional Family Medical History / Comment(s): from [place] Mother Family Medical History: Cancer, Deep Vein Thrombosis (DVT) Additional Family Medical History / Comment(s): breast, bone, and brain CA, heart attack Medications and Allergies Home Medications Medication Instructions Recorded Confirmed Type Budesonide/Formoterol Fumarate 2 puff INHALATION RT-BID 01/21/15 01/21/17 History [Symbicort 160-4.5 Mcg Inhaler] Tiotropium 18 Mcg/Puff [Spiriva] 1 cap INHALATION RT-DAILY 07/26/16 01/21/17 History Acetaminophen Tab [Tylenol Tab] 650 mg PO Q4H PRN 01/21/17 01/21/17 History Atorvastatin [Lipitor] 80 mg PO HS@2100 01/21/17 01/21/17 History Bisacodyl 10 mg RECTAL DAILY PRN 01/21/17 01/21/17 History Clopidogrel [Plavix] 75 mg PO DIRECTED 01/21/17 01/21/17 History Docusate [Colace] 100 mg PO BID@0800,1700 01/21/17 01/21/17 History Dronabinol [Marinol] 2.5 mg PO BID@1200,1700 01/21/17 01/21/17 History Ferrous Sulfate [Feosol] 325 mg PO DAILY@1700 01/21/17 01/21/17 History Ipratropium-Albuterol Nebulize 3 ml INHALATION RT-QID 01/21/17 01/21/17 History [Duoneb 0.5 mg-3 mg/3 ml Soln] Magnesium Hydroxide [Milk of 2,400 mg PO ONCE PRN 01/21/17 01/21/17 History Magnesia] Metoprolol Tartrate [Lopressor] 25 mg PO BID@0800,2100 01/21/17 01/21/17 History Multivitamins, Thera [Multivitamin 1 tab PO DAILY@1700 01/21/17 01/21/17 History (formulary)] Ondansetron [Zofran] 4 mg PO Q8H PRN 01/21/17 01/21/17 History Allergies Allergy/AdvReac Type Severity Reaction Status Date / Time bacitracin zinc Allergy Swelling Verified 01/21/17 14:16 [From Cortisporin] neomycin sulfate Allergy Swelling Verified 01/21/17 14:16 [From Cortisporin] polymyxin B sulfate Allergy Swelling Verified 01/21/17 14:16 [From Cortisporin] sulfamethoxazole Allergy Rash/Hives Verified 01/21/17 14:16 [From Bactrim] trimethoprim [From Bactrim] Allergy Rash/Hives Verified 01/21/17 14:16 Surgical - Exam Vital Signs Temp Pulse Resp BP Pulse Ox 98.6 F 91 18 108/64 96 01/21/17 13:54 01/21/17 13:54 01/21/17 13:54 01/21/17 13:54 01/21/17 13:54 GENERAL: Pt awake and alert, confused, in no acute distress. LUNGS: Breath sounds clear to auscultation bilaterally. No wheezes, rales, or rhonchi. HEART: Heart S1, S2, no S3 or S4. Regular rate and rhythm. No murmurs, rubs or gallops. ABDOMEN: Soft, obese, nontender, nondistended, normoactive bowel sounds. No guarding, no rebound. No masses or organomegaly appreciated. Jeff-Eubanks drain to left lower quadrant with thin green drainage. NEUROLOGICAL: Pt oriented x 1. Results - Labs 01/21/17 14:19 01/21/17 14:19 - Imaging Chest x-ray: report reviewed Assessment and Plan Plan: Impression: 1. Large B cell lymphoma 2. Elevated lactic acid with a temperature of 100.5 upon admission suspect secondary to severe dehydration secondary to decreased oral intake. 3. History of left inguinal lymph node excision with placement of Jeff- Eubanks drain on 01/08/2017. Plan: 1. Repeat CBC, CMP, lactic acid now. Continue IV hydration. Patient will be scheduled to undergo Port-A-Cath insertion tomorrow. Patient will be kept nothing by mouth after midnight. Continue to hold Plavix, per chart last dose 01/20/2017. Continue to monitor Jeff-Eubanks drain. Repeat CBC, BMP, PT/INR in a.m. Continue to follow with medical team. The above impression and plan have been discussed and directed by Dr. Lira. Rose VANN acting as scribe for Dr. Lira.
--- NOTE | 2017-01-22 13:48 | P.CONS ---
History of Present Illness - Reason for Consult Consult date: 01/22/17 [facility] Requesting physician: Leroy Solis - Chief Complaint AMS - History of Present Illness Pt being seen in regards to a previous suprapubic lymph node biopsy a little over a week ago, pathology diffuse large B cell lymphoma. Pt was due to f/u in the office yesterday for discussion of pathology, prognosis and treatment options but he was brought back to the hospital from [facility] due to altered mental status. When seen pt continues to be confused to recent events, he is not even clear as to where he resides, he is talking about people trying to poison him and that he has friends and family that have been poisoned, he did not know date. Chart was reviewed, other providers notes as well as previous visit information. Pt denied to me pain, feeling of nausea or having to go to the bathroom. Review of Systems ROS unobtainable: due to mental status Past Medical History Past Medical History: Asthma, COPD, Hypertension, Myocardial Infarction (LA), Sleep Apnea/CPAP/BIPAP Additional Past Medical History / Comment(s): pt poor historian and no family availbale at [facility] of this admit.lleaking heart valve, per [facility] paperwork- lymphoma,cad,falls, wt loss Last Myocardial Infarction Date:: 12/2016 History of Any Multi-Drug Resistant Organisms: None Reported Past Surgical History: Ear Surgery, Heart Catheterization, Heart Catheterization With Stent, Tonsillectomy Additional Past Surgical History / Comment(s): previously charted "Stomach biopsy 3 weeks ago with MIKA drain", lt inguinal lymph node bx Past Anesthesia/Blood Transfusion Reactions: No Reported Reaction Date of Last Stent Placement:: 07/2016 Past Psychological History: Depression Additional Psychological History / Comment(s): pt currently at [facility], transfer paperwork noted he is a total lift not ambularoy, incont urine/stool. 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 Smoking Status: Former smoker Past Alcohol Use History: None Reported Additional Past Alcohol Use History / Comment(s): unable to obtain from pt when he started or quit Past Drug Use History: None Reported Additional Drug Use History / Comment(s): denies any use - Past Family History Father Family Medical History: Respiratory Disorder Additional Family Medical History / Comment(s): from [facility] Mother Family Medical History: Cancer, Deep Vein Thrombosis (DVT) Additional Family Medical History / Comment(s): breast, bone, and brain CA, heart attack Medications and Allergies Home Medications Medication Instructions Recorded Confirmed Type Budesonide/Formoterol Fumarate 2 puff INHALATION RT-BID 01/21/15 01/21/17 History [Symbicort 160-4.5 Mcg Inhaler] Tiotropium 18 Mcg/Puff [Spiriva] 1 cap INHALATION RT-DAILY 07/26/16 01/21/17 History Acetaminophen Tab [Tylenol Tab] 650 mg PO Q4H PRN 01/21/17 01/21/17 History Atorvastatin [Lipitor] 80 mg PO HS@2100 01/21/17 01/21/17 History Bisacodyl 10 mg RECTAL DAILY PRN 01/21/17 01/21/17 History Clopidogrel [Plavix] 75 mg PO DIRECTED 01/21/17 01/21/17 History Docusate [Colace] 100 mg PO BID@0800,1700 01/21/17 01/21/17 History Dronabinol [Marinol] 2.5 mg PO BID@1200,1700 01/21/17 01/21/17 History Ferrous Sulfate [Feosol] 325 mg PO DAILY@1700 01/21/17 01/21/17 History Ipratropium-Albuterol Nebulize 3 ml INHALATION RT-QID 01/21/17 01/21/17 History [Duoneb 0.5 mg-3 mg/3 ml Soln] Magnesium Hydroxide [Milk of 2,400 mg PO ONCE PRN 01/21/17 01/21/17 History Magnesia] Metoprolol Tartrate [Lopressor] 25 mg PO BID@0800,2100 01/21/17 01/21/17 History Multivitamins, Thera [Multivitamin 1 tab PO DAILY@1700 01/21/17 01/21/17 History (formulary)] Ondansetron [Zofran] 4 mg PO Q8H PRN 01/21/17 01/21/17 History Allergies Allergy/AdvReac Type Severity Reaction Status Date / Time bacitracin zinc Allergy Swelling Verified 01/21/17 14:16 [From Cortisporin] neomycin sulfate Allergy Swelling Verified 01/21/17 14:16 [From Cortisporin] polymyxin B sulfate Allergy Swelling Verified 01/21/17 14:16 [From Cortisporin] sulfamethoxazole Allergy Rash/Hives Verified 01/21/17 14:16 [From Bactrim] trimethoprim [From Bactrim] Allergy Rash/Hives Verified 01/21/17 14:16 Physical Exam Vitals: Vital Signs Temp Pulse Pulse Pulse Resp BP BP 01/22/17 08:13 92 01/22/17 08:00 18 01/22/17 07:57 97 01/22/17 07:00 97.8 F 95 20 01/21/17 22:10 97.6 F 81 18 112/64 01/21/17 19:10 97.1 F L 96 15 117/66 BP Pulse Ox 01/22/17 08:13 01/22/17 08:00 01/22/17 07:57 92 L 01/22/17 07:00 112/66 94 L 01/21/17 22:10 99 01/21/17 19:10 95 Intake and Output 01/21/17 01/22/17 01/22/17 22:59 06:59 14:59 Intake Total 370 1200 Output Total 175 Balance 195 1200 Intake: Intake, IV Titration 150 1200 Amount Sodium Chloride 0.9% 1, 150 1200 000 ml @ 150 mls/hr IV . Q6H40M ONE Rx#:[id number] Oral 220 Output: Urine 175 Other: Voiding Method Toilet Diaper Urinal Incontinent # Voids 1 1 1 Weight 122.47 kg - Constitutional General appearance: average body habitus, no acute distress - EENT Eyes: anicteric sclerae, normal appearance ENT: normal oropharynx - Neck Neck: no lymphadenopathy - Respiratory Respiratory: bilateral: CTA - Cardiovascular Heart sounds: normal: S1, S2 leg Peripheral Edema: bilateral: 1+, Pitting - Gastrointestinal General gastrointestinal: no absent bowel sounds, no decreased bowel sounds, no distended, no hepatomegaly, no hyperactive bowel sounds, normal bowel sounds, no organomegaly, no rigid, no scaphoid, soft, no splenomegaly, no tenderness, no umbilical hernia, no ventral hernia - Genitourinary left suprapubic area 2.5-3 cm hard, fixed mass. Suprapubic MIKA drain still in place, small amt of thick yellow drainage, mild redness noted at drain insertion site. - Integumentary Integumentary: pale - Neurologic Neurologic: CNII-XII intact - Musculoskeletal Musculoskeletal: generalized weakness, strength equal bilaterally - Psychiatric Pt states that he will not eat his breakfast because the people that poisoned his son and friends-he knows 5 poeple who were poisoned and killed- if they can "get them, then they can get me". He does not know his address, he was not able to say if he came to the hospital from [facility]. Psychiatric: no A&O x's 3, no appropriate affect, no intact judgment & insight Results CBC & Chem 7: 01/21/17 14:19 01/21/17 14:19 Chest x-ray: report reviewed Assessment and Plan Plan: Diffuse large B cell lymphoma-recent diagnosis. Pt is not oriented so discussions regarding malignancy and treatment were attempted but stopped as pt was not understanding. Pt stated to just "let it go" but he was unable to tell us what he meant by that. Have requested Psychiatry consult and possibly a guardian if pt mental status does not improve with treatments as suspect infection from MIKA drain. We will await surgical evaluation. We will follow with you to see if pt condition improves to where his malignancy can be discussed with him. Will try to contact spouse for meeting
[2017-01-22] MEDS ORDERED: RX INFO: IV CONTRAST WAS GIVEN 1 EACH MISC MISCELLANE PRN (14:55)
[2017-01-22 15:07] LABS: Anisocytosis Slight; Basophils % (A) 1 %; CH 26.9; CHCM 30.1; Eosinophils # (A) 0.1 k/uL (0-0.7); Eosinophils % (A) 2 %; HCT 32.7 % (39.0-53.0); HDW 4.15; HGB 9.9 gm/dL (13.0-17.5); Hypochromasia Marked; Luc # (Auto) 0.12; Luc % (Auto) 2; Lymphocytes # (A) 0.2 k/uL (1.0-4.8); Lymphocytes % (A) 4 %; MCH 27.3 pg (25.0-35.0); MCHC 30.2 g/dL (31.0-37.0); MCV 90.4 fL (80.0-100.0); Mean Platelet Volume 8.5; Monocytes # (A) 0.3 k/uL (0-1.0); Monocytes % (A) 5 %; Neutrophils # (A) 4.9 k/uL (1.3-7.7); Neutrophils % (A) 86 %; Poikilocytosis Moderate; RBC 3.62 m/uL (4.30-5.90); RDW 17.7 % (11.5-15.5); WBC 5.7 k/uL (3.8-10.6)
[2017-01-22 15:17] LABS: ALT 27 U/L (21-72); AST 51 U/L (17-59); Alkaline Phosphatase 96 U/L (38-126); Anion Gap 13 mmol/L; Blood Urea Nitrogen 31 mg/dL (9-20); Calcium 9.7 mg/dL (8.4-10.2); Carbon Dioxide 20 mmol/L (22-30); Glucose 85 mg/dL (74-99); Non-African American GFR(MDRD) >60 (>60 ml/min/1.73 sqM); Potassium 3.7 mmol/L (3.5-5.1); Sodium 156 mmol/L (137-145); Total Bilirubin 1.3 mg/dL (0.2-1.3)
[2017-01-22 15:25] LABS: Chloride 123 mmol/L (98-107)
[2017-01-22] MEDS ORDERED: FERROUS SULFATE 325 MG TAB PO SCH (17:00)
--- NOTE | 2017-01-22 17:03 | CT ---
EXAMINATION TYPE: CT brain w con DATE OF EXAM: 01/22/2017 4:40 PM COMPARISON: 01/21/2015 HISTORY: 66-year-old male with increased confusion x 1 week. History of lymphoma (abdomen). CT DLP: 1156.30 mGycm Automated exposure control for dose reduction was used. CONTRAST: CT scan of the head is performed with IV Contrast, patient injected with 100 mL of Omnipaque 300. Cor onal and sagittal reconstructions performed. FINDINGS: There is no abnormal enhancing mass or midline shift identified. The ventricles and sulci are within normal limits in size with mild age-related cerebral cortical volume loss. Mild patchy white matter hypodensities suggest mild changes of chronic small vessel ischemic disease. No venous sinuses are pa tent. Incidentally, there is a partially empty sella. The globes are intact and the visualized sinuse s are clear. Postsurgical changes of prior left mastoidectomy. IMPRESSION: No suspicious intracranial enhancing lesions. Mild cerebral atrophy and changes of chronic small vess el ischemic disease.
[2017-01-22] MEDS: MULTIVITAMINS, THERA 1 EACH TAB PO SCH (17:44)
--- NOTE | 2017-01-22 18:35 | HP ---
DATE OF ADMISSION: 01/21/2017 PRESENTING COMPLAINT: Weak, tired, altered mental status. HISTORY OF PRESENTING COMPLAINT: This is a 66-year-old patient of Dr. Abdullahi whose chronic stable conditions include coronary artery disease with stent, GERD, mild persistent asthma, hypertension. Patient recently following a lymph node biopsy was diagnosed with diffuse large B-cell lymphoma. Patient has a pending appointment to see Dr. Pike. History was obtained from his at the bedside. Over a period of time, patient has been having increasing confusion, delirious talking, lethargic, poor appetite, poor fluid intake; he pretty much has become bed-bound. Hence patient was admitted. Patient was ( ) IV fluids yesterday. REVIEW OF SYSTEMS: Difficult to obtain, as patient can barely talk, but most of the history is obtained from his at the bedside. PAST MEDICAL HISTORY: 1. Obesity. 2. Coronary artery disease with stent. 3. GERD. 4. Mild persistent asthma. 5. Hyperlipidemia. 6. Diffuse large B-cell lymphoma; new diagnosis. 7. Sleep apnea. PAST SURGICAL HISTORY: 1. Cardiac catheterization with stent. 2. Tonsillectomy. 3. Stomach biopsy 3 weeks ago with MIKA drain. 4. Inguinal lymph node biopsy. PAST PSYCHIATRIC HISTORY: Depression. SOCIAL HISTORY: Resident currently at [facility]. Patient needs complete assist right now. Doubly incontinent. 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 Patient did smoke in the past. . FAMILY HISTORY: DVT, breast, bone and brain cancer. HOME MEDICATIONS: 1. Lipitor 80 mg at bedtime. 2. Multivitamin 1 tablet p.o. daily. 3. Plavix 75 mg daily. 4. Spiriva 1 capsule daily. 5. Lopressor 25 p.o. b.i.d. 6. Marinol 2.5 p.o. b.i.d. 7. Colace 100 mg p.o. b.i.d. 8. Ultram 50 mg p.o. q.i.d. 9. Zofran 4 mg q.8 p.r.n. 10. Nitrostat 0.4 sublingually q.5 p.r.n. 11. Milk of Magnesia 2400 mg p.o. p.r.n. 12. Tylenol 650 mg p.o. q.4 p.r.n. 13. Symbicort 160/4.5 two puffs b.i.d. 14. DuoNeb q.i.d. ALLERGIES: 1. BACITRACIN. 2. NEOMYCIN. 3. POLYMYXIN B. 4. BACTRIM. On examination, temperature 100.5, pulse 98, respiration 18, blood pressure 117/58, pulse ox 94% on 2 L. GENERAL APPEARANCE: Obese; BMI 42.3. Lying in bed. Delirious. Lethargic. EYES: Pupils equal. Conjunctivae pale. HEENT: Oral cavity with dry mucous membrane. NECK: JVD not raised. Mass not palpable. RESPIRATORY: Effort normal. LUNGS: Slightly diminished breath sounds. CARDIOVASCULAR: First and second sounds normal. Edema present. ABDOMEN: Slightly distended. Soft. Liver and spleen not palpable. LYMPHATIC: No lymph node palpable in neck or axillae. PSYCHIATRY: Patient will say a word or 2, then drifts off, then starts mumbling. NEUROLOGICAL: Pupils equal. No facial droop. He does move all 4 limbs. INVESTIGATIONS: White count 5.8, hemoglobin 10.8. Sodium 156, potassium 5.2. BUN 34, creatinine 0.92. Calcium 10.3. AST 79. Albumin 2.6. ASSESSMENT: 1. Acute metabolic encephalopathy with acute delirium from severe electrolyte abnormality. Need to rule out lymphoma involvement of the brain. 2. Moderate protein-calorie malnutrition with decreased oral intake going on for some time. 3. Hypoalbuminemia. 4. Hypercalcemia from dehydration. 5. Hypernatremia from free water deficit. 6. Normocytic anemia, likely from underlying malignancy. 7. New diagnosis of diffuse large B-cell lymphoma; chemotherapy as per Dr. Pike. 8. Coronary artery disease with prior history of stent. 9. Gastroesophageal reflux disease. 10. Mild persistent asthma. 11. Hypertension. PLAN: Aspiration precautions. Patient is being hydrated with normal saline. Given the high chloride, will switch to half saline. Will get a CT scan of the brain with contrast to rule out any lymphoma involvement. Oftentimes MRA may be a better study. I do hope that with hydration some of this mental status will likely improve. Dr. Pike is also consulted. Patient also has a drain. Dr. Lira did the biopsy. Will let him evaluate the same. Care was discussed with the patient's at the bedside.
[2017-01-22] MEDS: ATORVASTATIN 80 MG TAB PO SCH (22:27)
[2017-01-22] MEDS: SODIUM CHLORIDE 0.45% 1,000 ML IV SCH (22:30)
[2017-01-23] MEDS: SODIUM CHLORIDE 0.45% 1,000 ML IV SCH ×3 (00:09→18:59)
[2017-01-23] MEDS ORDERED: HYDROmorphone 1 MG/ML 1 ML SYRINGE IVP PRN (01:21)
[2017-01-23] MEDS ORDERED: MIDAZOLAM 2 MG/2 ML VIAL IV PRN (01:21)
[2017-01-23] MEDS ORDERED: ONDANSETRON 4 MG/2 ML VIAL IVP ONE (01:21)
[2017-01-23 07:41] LABS: Anisocytosis Slight; Basophils % (A) 1 %; CH 26.7; Eosinophils # (A) 0.2 k/uL (0-0.7); Eosinophils % (A) 3 %; HCT 35.1 % (39.0-53.0); HDW 4.12; HGB 10.3 gm/dL (13.0-17.5); Hypochromasia Marked; Luc % (Auto) 2; Lymphocytes # (A) 0.3 k/uL (1.0-4.8); Lymphocytes % (A) 6 %; MCH 27.3 pg (25.0-35.0); MCHC 29.4 g/dL (31.0-37.0); MCV 93.1 fL (80.0-100.0); Mean Platelet Volume 8.5; Monocytes # (A) 0.3 k/uL (0-1.0); Monocytes % (A) 5 %; Neutrophils # (A) 4.1 k/uL (1.3-7.7); Neutrophils % (A) 83 %; Poikilocytosis Moderate; RBC 3.77 m/uL (4.30-5.90); WBC (Perox) 5.35
[2017-01-23 07:47] LABS: Prothrombin Time 18.8 sec (9.0-12.0)
[2017-01-23] MEDS: IPRATROPIUM-ALBUTEROL 3 ML NEB INHALATION SCH ×3 (08:02→19:17)
[2017-01-23 08:08] LABS: Anion Gap 13 mmol/L; Blood Urea Nitrogen 29 mg/dL (9-20); Calcium 9.5 mg/dL (8.4-10.2); Carbon Dioxide 20 mmol/L (22-30); Glucose 82 mg/dL (74-99); Non-African American GFR(MDRD) >60 (>60 ml/min/1.73 sqM); Sodium 157 mmol/L (137-145)
[2017-01-23 08:13] LABS: Chloride 124 mmol/L (98-107)
[2017-01-23 08:21] LABS: Potassium 4.3 mmol/L (3.5-5.1)
[2017-01-23] MEDS: traMADol 50 MG TAB PO SCH ×4 (08:22→23:16)
[2017-01-23] MEDS: METOPROLOL TARTRATE 25 MG TAB PO SCH ×2 (08:22→22:32)
[2017-01-23] MEDS ORDERED: IV FLUID CONTINUATION 550 ML IV ONE (09:48)
[2017-01-23] MEDS ORDERED: HEPARIN SODIUM,PORCINE 100 UNIT/ML 5 ML VIAL IV ONE ×2 (10:00→10:53)
[2017-01-23] MEDS ORDERED: BUPIVACAIN-EPI 0.25%-1:200,000 30 ML VIAL SQ ONE ×2 (10:00→10:53)
[2017-01-23] MEDS ORDERED: IOHEXOL 180 MG/ML 1 ML ML INJ ONE ×2 (10:00→10:53)
[2017-01-23] MEDS ORDERED: MIDAZOLAM 2 MG/2 ML VIAL ONE (10:28)
[2017-01-23] MEDS ORDERED: PROPOFOL 10 MG/ML 20 ML VIAL IV ONE (10:28)
[2017-01-23] MEDS ORDERED: fentaNYL (PF) 50 MCG/ML 2 ML AMP ONE (10:28)
[2017-01-23] MEDS ORDERED: SODIUM CHLORIDE 0.9% 50 ML with ceFAZolin 2,000 MG IV ONE ×2 (10:35)
--- NOTE | 2017-01-23 11:08 | P.OP ---
Date of Procedure: 01/23/17 Preoperative Diagnosis: Lymphoma Postoperative Diagnosis: Lymphoma Procedure(s) Performed: Right subclavian Port-A-Cath Anesthesia: MAC Surgeon: Quintin Lira Estimated Blood Loss (ml): 5 Pathology: none sent Condition: stable Disposition: PACU Description of Procedure: PROCEDURE: The patient was placed on the operating table in the supine position. She received MAC anesthetic. The [RIGHT] chest was prepped and draped in the usual sterile fashion. The skin underneath the right clavicle was anesthetized with 1% Xylocaine and using Seldinger technique, the right subclavian vein was cannulized. The wire was placed through the needle and positioned under fluoroscopy. Next, the needle was removed and the port site was anesthetized with 1% Xylocaine. Skin was incised with #15 blade and port pocket was made using blunt and sharp dissection. Following this the catheter was attached to the sport and the port was flushed. The port was positioned into the pocket site and was secured with 3-0 Vicryl suture. The catheter was then brought out through the wire site and then the dilator sheath was placed over the wire and the dilator and the wire were removed. The catheter was placed through the sheath and the sheath was removed. The port was flushed with hep-lock solution. Skin was closed with interrupted 3-0 Vicryl sutures. Steri-Strips were applied. The patient tolerated the procedure well. The patient was sent to recovery room for chest x-ray after the procedure.
--- NOTE | 2017-01-23 11:47 | XR ---
EXAMINATION TYPE: XR chest 1V DATE OF EXAM: 01/23/2017 11:34 AM HISTORY: Line placement. REFERENCE: Previous study dated 01/21/2017. FINDINGS: There has been interval placement of a right subclavian catheter. Its tip is in the superio r vena cava. There continues to be some increased opacity at the left lung base. There has developed some atelecta tic change at the right lung base. The heart is not enlarged. Pleural spaces are clear. IMPRESSION: BIBASILAR ATELECTASIS.
[2017-01-23] MEDS: LACTATED RINGERS 1,000 ML IV SCH (12:14)
[2017-01-23] MEDS: DRONABINOL 2.5 MG CAP PO SCH ×3 (13:05→18:04)
[2017-01-23] MEDS ORDERED: MVI, ADULT NO.4 WITH VIT K 10 ML, TRACE (CONC-1ML/DOSE) 1 ML in AMINO ACID 5%-D25W+LYTE... IV SCH ×3 (14:00)
[2017-01-23] MEDS ORDERED: PHYTONADIONE 5 MG in SODIUM CHLORIDE 0.9% 50 ML IVPB STA (15:39)
[2017-01-23 16:47] LABS: Ionized Calcium 5.9 mg/dL (4.5-5.3)
[2017-01-23] MEDS: MULTIVITAMINS, THERA 1 EACH TAB PO SCH ×2 (17:40→18:04)
--- NOTE | 2017-01-23 18:04 | PN ---
DATE OF SERVICE: 01/23/2017 PRESENTING COMPLAINT: Weak and tired. INTERVAL HISTORY: This is a patient who has a diagnosis of B-cell lymphoma admitted with not able to eat for quite some time, encephalopathic. Patient was given IV fluids, but patient started third spacing. Patient had a port placed today. I spoke to Dr. Pike from oncology that patient's very poor nutritional status is a real impediment in his treatment; hence, TPN lipids will be started. Patient's mental status changes appear to be primarily metabolic from electrolyte abnormalities, but cannot rule out a [employer] component. REVIEW OF SYSTEMS: Difficult to obtain. Patient will occasionally say a few words here and there, still delirious. Current medications are reviewed that include: 1. IV fluids at 125 mL/h. 2. TPN lipids are being started. On examination, temperature 97.8, pulse 107, respirations 20, blood pressure 102/61, pulse ox 96% on room air. GENERAL APPEARANCE: Lying in bed; lethargic, but arousable. EYES: Pupils equal. Conjunctivae pale. NECK: JVD unable to assess. Mass not palpable. RESPIRATORY: Effort normal. LUNGS: Slightly decreased breath sounds. CARDIOVASCULAR: First and second sounds normal. Gross edema present. ABDOMEN: Distended, soft. Liver and spleen not palpable. PSYCHIATRY: Patient still delirious, not really able to make very many answers. NEUROLOGICAL: Moving his limbs. INVESTIGATIONS: White count 5, hemoglobin 10.3, pro time 18.8. Sodium 157, chloride 124. ASSESSMENT: 1. Acute severe metabolic encephalopathy with acute delirium from severe electrolyte abnormality. Less likely we need to rule out lymphoma via lumbar puncture. This will be done once the pro time comes down after giving vitamin K for 72 hours. 2. Moderate protein-calorie malnutrition with decreased oral intake going on for some time, causing severe edema and third spacing. 3. Hypoalbuminemia from poor oral intake. 4. Hypercalcemia from dehydration. 5. Hypernatremia from free water deficit. 6. Normocytic anemia, likely from underlying malignancy. 7. New diagnosis of diffuse large B-cell lymphoma pending chemotherapy as per Dr. Pike. 8. Coronary artery disease with prior history of stent. 9. Gastroesophageal reflux disease. 10. Mild persistent asthma. 11. Essential hypertension. PLAN: I spoke to Dr. Pike as indicated above. I also spoke to the and the patient's son. I explained the whole clinical situation. The patient will receive 3 days of vitamin K. With the pro time coming down, then can have a lumbar puncture. Will also see how the patient does with the TPN lipids and improve his nutritional status, hoping his mental status also improves with the same. Aspiration precautions are to continue and all feeding is to be supervised. This was discussed with the patient's family and the nurse and preferably will give him thickened food like applesauce. Total time spent was about 50 minutes with over 30 minutes of discussion.
[2017-01-23] MEDS: FAT EMULSION 20% 250 ML IV SCH (21:48)
[2017-01-23] MEDS: ATORVASTATIN 80 MG TAB PO SCH (22:32)
[2017-01-24 00:12] LABS: Glucose,Whole Blood 127 mg/dL (75-99)
[2017-01-24] MEDS: INSULIN LISPRO (humaLOG) 300 UNIT/3 ML VIAL SQ SCH ×5 (00:53→23:25)
[2017-01-24] MEDS: LACTATED RINGERS 1,000 ML IV SCH ×2 (00:54→23:26)
[2017-01-24] MEDS: MVI, ADULT NO.4 WITH VIT K 10 ML, TRACE (CONC-1ML/DOSE) 1 ML in AMINO ACID 5%-D25W+LYTE... IV SCH ×6 (02:43→19:28)
[2017-01-24 06:00] LABS: Glucose,Whole Blood 136 mg/dL (75-99)
[2017-01-24] MEDS: IPRATROPIUM-ALBUTEROL 3 ML NEB INHALATION SCH ×3 (07:15→20:14)
[2017-01-24] MEDS: METOPROLOL TARTRATE 25 MG TAB PO SCH ×2 (09:05→19:50)
[2017-01-24] MEDS: traMADol 50 MG TAB PO SCH ×4 (09:06→19:49)
[2017-01-24] MEDS: CLOPIDOGREL 75 MG TAB PO SCH (09:06)
[2017-01-24] MEDS: DRONABINOL 2.5 MG CAP PO SCH ×2 (09:06→16:11)
[2017-01-24 11:34] LABS: Glucose,Whole Blood 177 mg/dL (75-99)
[2017-01-24 11:36] LABS: INR 1.5 (<1.1)
[2017-01-24 11:42] LABS: ALT 28 U/L (21-72); AST 53 U/L (17-59); Alkaline Phosphatase 98 U/L (38-126); Anion Gap 12 mmol/L; Blood Urea Nitrogen 27 mg/dL (9-20); Calcium 9.7 mg/dL (8.4-10.2); Carbon Dioxide 20 mmol/L (22-30); Glucose 181 mg/dL (74-99); Magnesium 2.3 mg/dL (1.6-2.3); Non-African American GFR(MDRD) >60 (>60 ml/min/1.73 sqM); Phosphorous 1.4 mg/dL (2.5-4.5); Potassium 3.2 mmol/L (3.5-5.1); Sodium 156 mmol/L (137-145); Total Bilirubin 1.2 mg/dL (0.2-1.3); Triglycerides 201 mg/dL (<150)
[2017-01-24 11:50] LABS: Chloride 124 mmol/L (98-107)
[2017-01-24] MEDS ORDERED: HYDROmorphone 1 MG/ML 1 ML SYRINGE IVP PRN (13:00)
[2017-01-24] MEDS: FAT EMULSION 20% 250 ML IV SCH (13:33)
[2017-01-24] MEDS: POTASSIUM PHOSPHATE 10 MMOL in SODIUM CHLORIDE 0.9% 100 ML IV SCH ×3 (16:08→19:46)
[2017-01-24] MEDS: MULTIVITAMINS, THERA 1 EACH TAB PO SCH (16:11)
[2017-01-24 17:31] LABS: Glucose,Whole Blood 185 mg/dL (75-99)
[2017-01-24] MEDS: ATORVASTATIN 80 MG TAB PO SCH (19:50)
[2017-01-24 23:27] LABS: Glucose,Whole Blood 148 mg/dL (75-99)
[2017-01-25] MEDS: HYDROmorphone 1 MG/ML 1 ML SYRINGE IVP PRN ×4 (01:33→19:42)
[2017-01-25 05:35] LABS: Glucose,Whole Blood 147 mg/dL (75-99)
[2017-01-25] MEDS: INSULIN LISPRO (humaLOG) 300 UNIT/3 ML VIAL SQ SCH ×3 (06:09→17:56)
[2017-01-25 07:25] LABS: Anisocytosis Slight; Basophils % (A) 1 %; CH 27.6; CHCM 31.2; Eosinophils # (A) 0.2 k/uL (0-0.7); Eosinophils % (A) 3 %; HCT 34.5 % (39.0-53.0); HDW 4.35; HGB 10.8 gm/dL (13.0-17.5); Hypochromasia Marked; Luc # (Auto) 0.15; Luc % (Auto) 3; Lymphocytes # (A) 0.3 k/uL (1.0-4.8); Lymphocytes % (A) 6 %; MCH 28.2 pg (25.0-35.0); MCHC 31.4 g/dL (31.0-37.0); MCV 89.9 fL (80.0-100.0); Mean Platelet Volume 9.5; Monocytes # (A) 0.2 k/uL (0-1.0); Monocytes % (A) 4 %; Neutrophils # (A) 4.6 k/uL (1.3-7.7); Neutrophils % (A) 84 %; Poikilocytosis Moderate; RBC 3.84 m/uL (4.30-5.90); RDW 18.4 % (11.5-15.5); WBC 5.4 k/uL (3.8-10.6); WBC (Perox) 5.77
[2017-01-25 07:33] LABS: INR 1.6 (<1.1); Prothrombin Time 15.1 sec (9.0-12.0)
[2017-01-25 07:41] LABS: Anion Gap 13 mmol/L; Blood Urea Nitrogen 25 mg/dL (9-20); Calcium 9.9 mg/dL (8.4-10.2); Carbon Dioxide 20 mmol/L (22-30); Glucose 161 mg/dL (74-99); Non-African American GFR(MDRD) >60 (>60 ml/min/1.73 sqM); Potassium 3.1 mmol/L (3.5-5.1); Sodium 159 mmol/L (137-145)
[2017-01-25 07:42] LABS: Chloride 126 mmol/L (98-107)
[2017-01-25] MEDS: DRONABINOL 2.5 MG CAP PO SCH ×2 (08:19→14:50)
[2017-01-25] MEDS: CLOPIDOGREL 75 MG TAB PO SCH (08:19)
[2017-01-25] MEDS: traMADol 50 MG TAB PO SCH ×2 (08:19→19:50)
[2017-01-25 08:39] LABS: Magnesium 2.3 mg/dL (1.6-2.3); Phosphorous 2.1 mg/dL (2.5-4.5)
[2017-01-25] MEDS: IPRATROPIUM-ALBUTEROL 3 ML NEB INHALATION SCH ×3 (09:23→20:37)
[2017-01-25] MEDS: METOPROLOL TARTRATE 25 MG TAB PO SCH (09:24)
[2017-01-25] MEDS: MVI, ADULT NO.4 WITH VIT K 10 ML, TRACE (CONC-1ML/DOSE) 1 ML in AMINO ACID 5%-D25W+LYTE... IV SCH ×3 (09:26)
[2017-01-25] MEDS ORDERED: POTASSIUM ACETATE IV SCH ×5 (09:30)
[2017-01-25] MEDS ORDERED: CALCIUM GLUCONATE IV SCH ×5 (09:30)
[2017-01-25] MEDS ORDERED: [UNRECOGNIZED DRUG - OTHER] IV SCH ×5 (09:30)
[2017-01-25] MEDS ORDERED: MAGNESIUM SULFATE IV SCH ×5 (09:30)
[2017-01-25] MEDS: POTASSIUM ACETATE IV SCH ×7 (10:14)
[2017-01-25] MEDS: [UNRECOGNIZED DRUG - OTHER] IV SCH ×7 (10:14)
[2017-01-25] MEDS: CALCIUM GLUCONATE IV SCH ×7 (10:14)
[2017-01-25] MEDS: MAGNESIUM SULFATE IV SCH ×7 (10:14)
[2017-01-25 11:20] LABS: Glucose,Whole Blood 161 mg/dL (75-99)
[2017-01-25] MEDS: BENZOCAIN/BENZALKONM ORAL GEL 12 GM TUBE MM PRN (11:34)
[2017-01-25] MEDS: FAT EMULSION 20% 250 ML IV SCH (14:49)
--- NOTE | 2017-01-25 15:19 | P.CRDCN ---
History of Present Illness Consult date: 01/25/17 History of present illness: This is a very unfortunate 66-year-old gentleman with a past medical history significant for B-cell lymphoma, as well as multiple comorbid conditions, was brought to the hospital from an extended care facility for change in mental status. The patient was found to have electrolytes imbalance and also he was found to be dehydrated. The patient is known to have history of coronary artery disease with a prior coronary artery stenting, as well as hypertension and dyslipidemia. The patient continues to have severe change in mental status and I was unable to obtain history from him. The reason we get involved in the care of the patient, because he was tachycardic. The patient was receiving metoprolol at home but he is nothing by mouth at this point because he is unable to swallow his pills. Nothing indicated that the patient was experiencing any chest pain or discomfort at this point. I am going to DC the metoprolol by mouth and start the patient on Lopressor IV scheduled and hold it if the blood pressure dropped below 90 mmHg systolic. Beside that I do not recommend any further cardiac workup for this unfortunate gentleman. The prognosis is very poor. Past Medical History Past Medical History: Asthma, COPD, Hypertension, Myocardial Infarction ([place]), Sleep Apnea/CPAP/BIPAP Additional Past Medical History / Comment(s): pt poor historian and no family availbale at [facility] of this admit.lleaking heart valve, per [facility] transfer paperwork- lymphoma,cad,falls, wt loss Last Myocardial Infarction Date:: 12/2016 History of Any Multi-Drug Resistant Organisms: None Reported Past Surgical History: Ear Surgery, Heart Catheterization, Heart Catheterization With Stent, Tonsillectomy Additional Past Surgical History / Comment(s): previously charted "Stomach biopsy 3 weeks ago with MIKA drain", lt inguinal lymph node bx Past Anesthesia/Blood Transfusion Reactions: No Reported Reaction Date of Last Stent Placement:: 07/2016 Past Psychological History: Depression Additional Psychological History / Comment(s): pt currently at [facility], transfer paperwork noted he is a total lift not ambularoy, incont urine/stool. 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 Smoking Status: Former smoker Past Alcohol Use History: None Reported Additional Past Alcohol Use History / Comment(s): unable to obtain from pt when he started or quit Past Drug Use History: None Reported Additional Drug Use History / Comment(s): denies any use - Past Family History Father Family Medical History: Respiratory Disorder Additional Family Medical History / Comment(s): from [facility] Mother Family Medical History: Cancer, Deep Vein Thrombosis (DVT) Additional Family Medical History / Comment(s): breast, bone, and brain CA, heart attack Medications and Allergies Home Medications Medication Instructions Recorded Confirmed Type Budesonide/Formoterol Fumarate 2 puff INHALATION RT-BID 01/21/15 01/21/17 History [Symbicort 160-4.5 Mcg Inhaler] Tiotropium 18 Mcg/Puff [Spiriva] 1 cap INHALATION RT-DAILY 07/26/16 01/21/17 History Acetaminophen Tab [Tylenol Tab] 650 mg PO Q4H PRN 01/21/17 01/21/17 History Atorvastatin [Lipitor] 80 mg PO HS@2100 01/21/17 01/21/17 History Bisacodyl 10 mg RECTAL DAILY PRN 01/21/17 01/21/17 History Clopidogrel [Plavix] 75 mg PO DIRECTED 01/21/17 01/21/17 History Docusate [Colace] 100 mg PO BID@0800,1700 01/21/17 01/21/17 History Dronabinol [Marinol] 2.5 mg PO BID@1200,1700 01/21/17 01/21/17 History Ferrous Sulfate [Feosol] 325 mg PO DAILY@1700 01/21/17 01/21/17 History Ipratropium-Albuterol Nebulize 3 ml INHALATION RT-QID 01/21/17 01/21/17 History [Duoneb 0.5 mg-3 mg/3 ml Soln] Magnesium Hydroxide [Milk of 2,400 mg PO ONCE PRN 01/21/17 01/21/17 History Magnesia] Metoprolol Tartrate [Lopressor] 25 mg PO BID@0800,2100 01/21/17 01/21/17 History Multivitamins, Thera [Multivitamin 1 tab PO DAILY@1700 01/21/17 01/21/17 History (formulary)] Ondansetron [Zofran] 4 mg PO Q8H PRN 01/21/17 01/21/17 History Allergies Allergy/AdvReac Type Severity Reaction Status Date / Time bacitracin zinc Allergy Swelling Verified 01/21/17 14:16 [From Cortisporin] neomycin sulfate Allergy Swelling Verified 01/21/17 14:16 [From Cortisporin] polymyxin B sulfate Allergy Swelling Verified 01/21/17 14:16 [From Cortisporin] sulfamethoxazole Allergy Rash/Hives Verified 01/21/17 14:16 [From Bactrim] trimethoprim [From Bactrim] Allergy Rash/Hives Verified 01/21/17 14:16 Physical Exam Vitals: Vital Signs Temp Pulse Resp BP Pulse Ox 01/25/17 08:00 20 01/25/17 07:00 98.3 F 144 H 20 120/65 93 L 01/24/17 21:23 98.8 F 128 H 20 110/58 93 L Intake and Output 01/25/17 01/25/17 01/25/17 06:59 14:59 22:59 Intake Total 604 Balance 604 Intake: IV 604 Fat Emulsion 20% 250 ml @ 84 21 mls/hr IV Q24H [facility] Rx #:[id number] Mvi, Adult No.4 with Vit 520 K 10 ml Trace (Conc-1Ml/ Dose) 1 ml In Amino Acid 5%-D25w+Lytes*E* 1,000 ml @ 65 mls/hr IV .[id number] [facility] Rx#:[id number] Other: Voiding Method Incontinent Incontinent Weight 122 kg - Constitutional General appearance: mild distress - Respiratory Respiratory: bilateral: diminished - Cardiovascular Rhythm: regular Heart sounds: normal: S1, S2 Results 01/25/17 07:05 01/25/17 07:05 Coagulation 01/25/17 Range/Units 07:05 PT 15.1 H (9.0-12.0) sec CBC 01/25/17 Range/Units 07:05 WBC 5.4 (3.8-10.6) k/uL RBC 3.84 L (4.30-5.90) m/uL Hgb 10.8 L (13.0-17.5) gm/dL Hct 34.5 L (39.0-53.0) % Plt Count 126 L (150-450) k/uL Comprehensive Metabolic Panel 01/25/17 Range/Units 07:05 Sodium 159 H (137-145) mmol/L Potassium 3.1 L (3.5-5.1) mmol/L Chloride 126 H* (98-107) mmol/L Carbon Dioxide 20 L (22-30) mmol/L BUN 25 H (9-20) mg/dL Creatinine 0.88 (0.66-1.25) mg/dL Glucose 161 H (74-99) mg/dL Calcium 9.9 (8.4-10.2) mg/dL Current Medications Generic Name Dose Route Start Last Admin Trade Name Freq PRN Reason Stop Dose Admin Acetaminophen 650 mg 01/21/17 20:57 01/22/17 17:45 Tylenol Tab PO 650 mg Q4H PRN Administration Fever > 100.5 Albuterol/Ipratropium 3 ml 01/22/17 20:00 01/25/17 09:23 Duoneb 0.5 Mg-3 Mg/3 Ml Soln INHALATION Not Given RT-TID [facility] Atorvastatin Calcium 80 mg 01/21/17 21:00 01/24/17 19:50 Lipitor PO Not Given HS@2100 [facility] Benzocaine 0.5 gm 01/24/17 18:23 01/25/17 11:34 Orajel Anesthetic Max Strength MM 0.5 gm QID PRN Administration Mouth Sore Pain Clopidogrel Bisulfate 75 mg 01/24/17 09:00 01/25/17 08:19 Plavix PO Not Given DAILY [facility] Dronabinol 2.5 mg 01/22/17 12:00 01/25/17 14:50 Marinol PO Not Given BID@1200,1700 [facility] Hydromorphone HCl 0.5 mg 01/24/17 18:25 01/25/17 14:56 Dilaudid IVP 0.5 mg Q4HR PRN Administration Pain Lactated Ringer's 1,000 mls @ 20 mls/hr 01/23/17 01:21 01/24/17 23:26 Lactated Ringers IV Not Given .Q24H [facility] Fat Emulsion Intravenous 250 mls @ 21 mls/hr 01/23/17 14:00 01/25/17 14:49 Lipids 20% IV 21 mls/hr Q24H [facility] Administration Potassium Acetate 15 meq/ 1,034.9167 mls @ 65 mls/hr 01/25/17 09:30 03/19/17 10:14 Magnesium Sulfate 5 meq/ IV 65 mls/hr Calcium Gluconate 850 mg/ .[id number] [facility] Administration Potassium Phosphate 20 mmol/ Parenteral Vitamin Supplement 10 ml/ Chromium/Copper/ Manganese/Seleni/Zn 1 ml/ Amino Acids/Dextrose Insulin Human Lispro 0 unit 01/24/17 00:00 01/25/17 13:07 Humalog SQ 2 unit Q6H [facility] Administration Protocol Magnesium Hydroxide 2,400 mg 01/21/17 20:57 Milk Of Magnesia PO ONCE PRN Constipation Metoprolol Tartrate 2.5 mg 01/25/17 18:00 Lopressor IVP Q6HR [facility] Nitroglycerin 0.4 mg 01/21/17 20:57 Nitrostat SUBLINGUAL Q5M PRN Chest Pain Ondansetron HCl 4 mg 01/21/17 20:57 Zofran PO Q8H PRN Nausea Tramadol HCl 50 mg 01/21/17 22:00 01/25/17 08:19 Ultram PO Not Given QID [facility] Intake and Output 01/25/17 01/25/17 01/25/17 06:59 14:59 22:59 Intake Total 604 Balance 604 Intake: IV 604 Fat Emulsion 20% 250 ml @ 84 21 mls/hr IV Q24H [facility] Rx #:[id number] Mvi, Adult No.4 with Vit 520 K 10 ml Trace (Conc-1Ml/ Dose) 1 ml In Amino Acid 5%-D25w+Lytes*E* 1,000 ml @ 65 mls/hr IV .[id number] [facility] Rx#:[id number] Other: Voiding Method Incontinent Incontinent Weight 122 kg 01/25/17 07:05 01/25/17 07:05 Assessment and Plan Plan: Assessment #1 B-cell lymphoma #2 change in mental status #3 dehydration #4 poor oral intake #5 malnutrition #6 sinus tachycardia Plan #1 DC metoprolol by mouth #2 start the patient on Lopressor IV #3 follow-up with the patient
--- NOTE | 2017-01-25 16:10 | PN ---
DATE OF SERVICE: 01/24/2017 CHIEF COMPLAINT: Weakness and tiredness. INTERVAL HISTORY: Mr. Rodriguez is a 66-year-old male who was recently diagnosed with B-cell lymphoma and multiple other comorbid chronic medical conditions. He was admitted to the hospital as he was not able to eat for quite some time and also was encephalopathic. The patient was given IV fluids but he has been third spacing. Patient had a MediPort placed yesterday. The plan was to start the patient on chemotherapy for his lymphoma, but due to his poor nutritional status, that has been put on hold. Currently he is getting TPN to improve his nutritional status. The patient has been affected, probably a combination of electrolyte abnormalities and there might be a component of CONTAMINATED LAND CONSULTANT involvement. He just mumbles a few words. He cannot communicate a message. Medications have been reviewed. He is on: 1. Tylenol. 2. DuoNeb. 3. Lipitor. 4. Orajel. 5. Marinol. 6. TPN. 7. Dilaudid. 8. Sliding scale insulin. 9. Milk of Magnesia. 10. Lopressor. 11. Multivitamin. 12. Zofran. 13. Tramadol. 14. Vitamin supplements. PHYSICAL EXAMINATION: VITAL SIGNS: Temperature 98.8, pulse between 100 and 120, blood pressure 110/58, saturating at 93% on room. GENERAL EXAMINATION: Patient is lying in bed, is awake, does not appear to be in acute distress. Pupils are equal and intact. NECK: Short, no masses palpable. RESPIRATORY: Scar where MediPort was placed. No signs of active infection. Bilateral breath sounds are decreased. CARDIOVASCULAR: S1, S2 heard. ABDOMEN: Distended, soft. Bowel sounds positive. EXTREMITIES: Pitting bilateral edema up to the mid-thigh region bilaterally. CONTAMINATED LAND CONSULTANT: He is awake, but does not follow any commands. Examination of the oral cavity shows some bleeding gums. He will not allow us to open his mouth and inspect the oral cavity. LABS: White count of 5, hemoglobin is 10.3, platelets of 141, sodium 156, potassium 3.2, chloride 124, bicarb 20, BUN 27, creatinine 0.90, magnesium 2.3, phosphorus 1.4. Albumin 2.3. ASSESSMENT AND PLAN: 1. Acute severe metabolic encephalopathy, can be a combination of electrolyte imbalance and also CONTAMINATED LAND CONSULTANT involvement. Patient may need a lumbar puncture to rule out CONTAMINATED LAND CONSULTANT causes, but due to his elevated PT and INR, it has been put on hold. He is getting vitamin K. His INR is 1.5 as of today. 2. Severe protein calorie malnutrition due to decreased p.o. intake. 3. Volume overload secondary to third spacing due to severe hypoalbuminemia. 4. Hyponatremia due to free water deficit. 5. Normocytic anemia, most likely secondary to his malignancy. 6. Diffuse large B-cell lymphoma, newly diagnosed. 7. Coronary artery disease with history of prior stenting. 8. Gastroesophageal reflux disease. 9. Mild persistent asthma. 10. Hypertension. PLAN: The patient is to continue on parenteral nutritional status. He will need a lumbar puncture to rule out CONTAMINATED LAND CONSULTANT lymphoma. He has been getting vitamin K to decrease his PT, INR. His INR is 1.5 today. Continue aspiration precautions with supervised feeding. Overall prognosis poor due to chronic medical conditions and the new diagnosis of B-cell lymphoma. Oncology, Dr. Pike, on board and following the patient. Further recommendations to follow depending on the progress of the patient. MTDD
[2017-01-25 17:30] LABS: Glucose,Whole Blood 156 mg/dL (75-99)
[2017-01-25] MEDS: ATORVASTATIN 80 MG TAB PO SCH (19:50)
[2017-01-25] MEDS: METOPROLOL TARTRATE 5 MG/5 ML VIAL IVP SCH (20:05)
[2017-01-25] MEDS ORDERED: PHYTONADIONE 5 MG in SODIUM CHLORIDE 0.9% 50 ML IVPB STA (23:59)
[2017-01-26 00:38] LABS: Glucose,Whole Blood 167 mg/dL (75-99)
[2017-01-26] MEDS: INSULIN LISPRO (humaLOG) 300 UNIT/3 ML VIAL SQ SCH ×4 (01:12→17:31)
[2017-01-26] MEDS: METOPROLOL TARTRATE 5 MG/5 ML VIAL IVP SCH ×5 (01:12→23:50)
[2017-01-26] MEDS: HYDROmorphone 1 MG/ML 1 ML SYRINGE IVP PRN ×5 (01:21→23:52)
[2017-01-26] MEDS: MAGNESIUM SULFATE IV SCH ×14 (02:03→17:30)
[2017-01-26] MEDS: [UNRECOGNIZED DRUG - OTHER] IV SCH ×14 (02:03→17:30)
[2017-01-26] MEDS: CALCIUM GLUCONATE IV SCH ×14 (02:03→17:30)
[2017-01-26] MEDS: POTASSIUM ACETATE IV SCH ×14 (02:03→17:30)
[2017-01-26] MEDS: LACTATED RINGERS 1,000 ML IV SCH (02:47)
--- NOTE | 2017-01-26 02:52 | XR ---
EXAM: XR Chest, 1 View. CLINICAL HISTORY: Reason: rule out aspiration pnumonia TECHNIQUE: Frontal view of the chest. COMPARISON: Chest x-ray 01/23/17. FINDINGS: Lungs: Reduced lung volumes. Retrocardiac atelectasis/consolidation. Pleural space: Unremarkable. No pneumothorax. Heart: Large cardiomediastinal silhouette. Mediastinum: See above. Bones/joints: No acute fracture. Tubes, lines and devices: Alicja cath. IMPRESSION: Reduced lung volumes. Retrocardiac atelectasis/consolidation.
[2017-01-26] MEDS ORDERED: SCOPOLAMINE 1.5MG/72HR PATCH TRANSDERM SCH (03:00)
[2017-01-26] MEDS: ACETAMINOPHEN SUPPOSITORY 650 MG SUPP RECTAL PRN ×3 (04:10→15:00)
[2017-01-26] MEDS: ATROPINE OPHTH SOLN 1% 5ML BTL MISCELLANE PRN ×2 (04:10→08:21)
[2017-01-26 04:25] LABS: Glucose,Whole Blood 156 mg/dL (75-99)
[2017-01-26 06:35] LABS: Glucose,Whole Blood 151 mg/dL (75-99)
[2017-01-26 06:39] LABS: Anisocytosis Slight; Basophils % (A) 1 %; CH 26.8; CHCM 30.2; Eosinophils # (A) 0.1 k/uL (0-0.7); Eosinophils % (A) 3 %; HCT 33.1 % (39.0-53.0); HDW 4.32; Hypochromasia Marked; Luc # (Auto) 0.15; Luc % (Auto) 3; Lymphocytes # (A) 0.4 k/uL (1.0-4.8); Lymphocytes % (A) 8 %; MCH 27.2 pg (25.0-35.0); MCHC 30.3 g/dL (31.0-37.0); MCV 89.8 fL (80.0-100.0); Mean Platelet Volume 9.4; Monocytes # (A) 0.3 k/uL (0-1.0); Monocytes % (A) 6 %; Neutrophils # (A) 3.7 k/uL (1.3-7.7); Neutrophils % (A) 80 %; Poikilocytosis Moderate; RBC 3.69 m/uL (4.30-5.90); RDW 18.3 % (11.5-15.5); WBC 4.7 k/uL (3.8-10.6); WBC (Perox) 4.73
[2017-01-26 06:42] LABS: INR 1.6 (<1.1); Prothrombin Time 15.6 sec (9.0-12.0)
[2017-01-26 06:52] LABS: ALT 23 U/L (21-72); AST 44 U/L (17-59); Alkaline Phosphatase 91 U/L (38-126); Anion Gap 11 mmol/L; Blood Urea Nitrogen 31 mg/dL (9-20); Calcium 9.5 mg/dL (8.4-10.2); Carbon Dioxide 20 mmol/L (22-30); Glucose 158 mg/dL (74-99); Magnesium 2.3 mg/dL (1.6-2.3); Non-African American GFR(MDRD) >60 (>60 ml/min/1.73 sqM); Phosphorous 2.7 mg/dL (2.5-4.5); Potassium 3.5 mmol/L (3.5-5.1); Sodium 156 mmol/L (137-145); Total Bilirubin 1.1 mg/dL (0.2-1.3); Total Protein 4.6 g/dL (6.3-8.2)
[2017-01-26 07:02] LABS: Chloride 125 mmol/L (98-107)
[2017-01-26] MEDS: IPRATROPIUM-ALBUTEROL 3 ML NEB INHALATION SCH ×3 (07:59→20:51)
[2017-01-26] MEDS: PIPERACILLIN-TAZOBACTAM 3.375 GM in DEXTROSE/WATER 1 50ML.BAG IVPB SCH ×2 (08:12→16:18)
[2017-01-26] MEDS: CLOPIDOGREL 75 MG TAB PO SCH (08:12)
[2017-01-26] MEDS: traMADol 50 MG TAB PO SCH ×4 (08:12→21:30)
[2017-01-26] MEDS: DRONABINOL 2.5 MG CAP PO SCH ×2 (08:12→10:38)
--- NOTE | 2017-01-26 08:45 | P.NPCON ---
History of Present Illness - Reason for Consult hypernatremia - History of Present Illness Reason for consultation: Hypernatremia History of present illness: Patient is a 66-year-old male seen in renal consultation for hypernatremia. Patient has history of large B-cell lymphoma. Patient resides at an [facility] and presented to the hospital with altered mental status as well as tachycardia. His heart rate is still in the 120s and he has been receiving IV Lopressor. He has been hypernatremic this admission was sodium level in the range of 156-159. It is 156 this morning. He's currently receiving TPN. His GFR is at baseline. Patient is extremely lethargic and only responds to painful stable I. History is obtained from the chart and from the nurse. Hemodynamically he is relatively stable however this morning his blood pressure was 100/59. Lactic acid level also noted to be elevated at 4.0 this morning. Vital signs are stable. General: The patient appeared well nourished and normally developed. HEENT: Head exam is unremarkable. Neck is without jugular venous distension. LUNGS: Lungs are clear to auscultation and percussion. Breath sounds decreased. HEART: Rate and Rhythm are regular. First and second heart sounds normal. No murmurs, rubs or gallops. ABDOMEN: Abdominal exam reveals normal bowel sounds. Non-tender and non- distended. No evidence of peritonitis. EXTREMITITES: 1+ edema. Past Medical History Past Medical History: Asthma, COPD, Hypertension, Myocardial Infarction ([place]), Sleep Apnea/CPAP/BIPAP Additional Past Medical History / Comment(s): pt poor historian and no family availbale at [facility] of this admit.lleaking heart valve, per [facility] transfer paperwork- lymphoma,cad,falls, wt loss Last Myocardial Infarction Date:: 12/2016 History of Any Multi-Drug Resistant Organisms: None Reported Past Surgical History: Ear Surgery, Heart Catheterization, Heart Catheterization With Stent, Tonsillectomy Additional Past Surgical History / Comment(s): previously charted "Stomach biopsy 3 weeks ago with MIKA drain", lt inguinal lymph node bx Past Anesthesia/Blood Transfusion Reactions: No Reported Reaction Date of Last Stent Placement:: 07/2016 Past Psychological History: Depression Additional Psychological History / Comment(s): pt currently at [facility], transfer paperwork noted he is a total lift not ambularoy, incont urine/stool. 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 Smoking Status: Former smoker Past Alcohol Use History: None Reported Additional Past Alcohol Use History / Comment(s): unable to obtain from pt when he started or quit Past Drug Use History: None Reported Additional Drug Use History / Comment(s): denies any use - Past Family History Father Family Medical History: Respiratory Disorder Additional Family Medical History / Comment(s): from [facility] Mother Family Medical History: Cancer, Deep Vein Thrombosis (DVT) Additional Family Medical History / Comment(s): breast, bone, and brain CA, heart attack Medications and Allergies Home Medications Medication Instructions Recorded Confirmed Type Budesonide/Formoterol Fumarate 2 puff INHALATION RT-BID 01/21/15 01/21/17 History [Symbicort 160-4.5 Mcg Inhaler] Tiotropium 18 Mcg/Puff [Spiriva] 1 cap INHALATION RT-DAILY 07/26/16 01/21/17 History Acetaminophen Tab [Tylenol Tab] 650 mg PO Q4H PRN 01/21/17 01/21/17 History Atorvastatin [Lipitor] 80 mg PO HS@2100 01/21/17 01/21/17 History Bisacodyl 10 mg RECTAL DAILY PRN 01/21/17 01/21/17 History Clopidogrel [Plavix] 75 mg PO DIRECTED 01/21/17 01/21/17 History Docusate [Colace] 100 mg PO BID@0800,1700 01/21/17 01/21/17 History Dronabinol [Marinol] 2.5 mg PO BID@1200,1700 01/21/17 01/21/17 History Ferrous Sulfate [Feosol] 325 mg PO DAILY@1700 01/21/17 01/21/17 History Ipratropium-Albuterol Nebulize 3 ml INHALATION RT-QID 01/21/17 01/21/17 History [Duoneb 0.5 mg-3 mg/3 ml Soln] Magnesium Hydroxide [Milk of 2,400 mg PO ONCE PRN 01/21/17 01/21/17 History Magnesia] Metoprolol Tartrate [Lopressor] 25 mg PO BID@0800,2100 01/21/17 01/21/17 History Multivitamins, Thera [Multivitamin 1 tab PO DAILY@1700 03/15/17 03/15/17 History (formulary)] Ondansetron [Zofran] 4 mg PO Q8H PRN 01/21/17 01/21/17 History Allergies Allergy/AdvReac Type Severity Reaction Status Date / Time bacitracin zinc Allergy Swelling Verified 01/21/17 14:16 [From Cortisporin] neomycin sulfate Allergy Swelling Verified 01/21/17 14:16 [From Cortisporin] polymyxin B sulfate Allergy Swelling Verified 01/21/17 14:16 [From Cortisporin] sulfamethoxazole Allergy Rash/Hives Verified 01/21/17 14:16 [From Bactrim] trimethoprim [From Bactrim] Allergy Rash/Hives Verified 01/21/17 14:16 Physical Exam Vitals: Vital Signs Temp Pulse Pulse Pulse Resp BP Pulse Ox 01/26/17 08:00 100.9 F H 122 H 20 100/59 93 L 01/26/17 04:00 101.6 F H 133 H 20 105/57 94 L 01/26/17 00:00 101.1 F H 140 H 23 114/65 90 L 01/25/17 20:00 98.6 F 141 H 18 116/71 97 01/25/17 17:52 99.2 F 137 H 20 115/83 95 01/25/17 16:49 94 L 01/25/17 15:00 98.5 F 139 H 20 116/69 94 L Intake and Output 01/25/17 01/26/17 01/26/17 22:59 06:59 14:59 Intake Total 2278.083 110 Output Total 200 Balance 2078.083 110 Intake: IV 1250 60 .9 @ 20 60 Fat Emulsion 20% 250 ml @ 250 21 mls/hr IV Q24H [facility] Rx #:[id number] Mvi, Adult No.4 with Vit 1000 K 10 ml Trace (Conc-1Ml/ Dose) 1 ml In Amino Acid 5%-D25w+Lytes*E* 1,000 ml @ 65 mls/hr IV .[id number] [facility] Rx#:[id number] Intake, IV Titration 1028.083 50 Amount Piperacillin-Tazobactam 3 50 .375 gm In Dextrose/Water 1 50ml.bag @ 12.5 mls/hr IVPB Q8HR [facility] Rx#: [id number] Potassium Acetate 15 meq 1028.083 Magnesium Sulfate 5 meq Calcium Gluconate 850 mg Potassium Phosphate 20 mmol Mvi, Adult No.4 with Vit K 10 ml Trace (Conc- 1Ml/Dose) 1 ml In Amino Acid 5%-D25w 1,000 ml @ 65 mls/hr IV .[id number] [facility] Rx#:[id number] Oral 0 Output: Urine 200 Other: Voiding Method Incontinent Incontinent Incontinent # Voids 2 3 Weight 122 kg Results - Lab Results Most recent lab results Calcium 9.5 mg/dL (8.4-10.2) 01/26/17 06:10 Phosphorus 2.7 mg/dL (2.5-4.5) 01/26/17 06:10 Magnesium 2.3 mg/dL (1.6-2.3) 01/26/17 06:10 01/26/17 06:10 01/26/17 06:10 Assessment and Plan Plan: Assessment: #1. Hypernatremia secondary to lack of oral water intake. Sodium level CLVI this morning. #2. Hyperchloremic metabolic acidosis with lactic acidosis present as well. #3. B-cell lymphoma. Plan: Start D5W to be run at 75 mL an hour. Repeat sodium level at 6 PM today. Bolus with 0.9 saline if worsening of hemodynamic status. Poor prognosis. Thank you for the consultation. I will continue to follow patient with you during his hospital stay.
[2017-01-26] MEDS: DEXTROSE 5% IN WATER 1,000 ML IV SCH ×2 (09:43→18:59)
[2017-01-26 11:07] VITALS: BMI 42.1
[2017-01-26 11:50] LABS: Glucose,Whole Blood 183 mg/dL (75-99)
[2017-01-26] MEDS: BENZOCAIN/BENZALKONM ORAL GEL 12 GM TUBE MM PRN (14:08)
[2017-01-26] MEDS: ATROPINE OPHTH SOLN 1% 5ML BTL SUBLINGUAL PRN ×3 (14:08→23:54)
[2017-01-26] MEDS: FAT EMULSION 20% 250 ML IV SCH (14:09)
--- NOTE | 2017-01-26 15:25 | PN ---
DATE OF SERVICE: 01/25/2017 Chief complaint is weakness and tiredness. INTERVAL HISTORY: Mr. Rodriguez is a 66-year-old male who was recently diagnosed with B-cell lymphoma and multiple other comorbid medical conditions, admitted to the hospital as he his mentation been deteriorating for the past one month. Patient was encephalopathic at the time of admission and has had severe electrolyte disturbances. Patient was being given IV fluids. There has been third spacing due to severe hypoalbuminemia. Patient was to be started on chemotherapy for his B-cell lymphoma but due to his poor nutritional status, that has been put on hold. Due to his changes in mentation, they want to rule out a MOBILE HEAVY EQUIPMENT OPERATOR involvement and the plan was to get an ( ) but due to high PT, INR that procedure was put on hold. Patient has been having difficulty in swallowing, so he is n.p.o. for now. He just mumbles a few words here and there but he cannot communicate a message with us. Review of systems could not be done as the patient cannot communicate. Patient's medications have been reviewed. He is on Tylenol, atorvastatin, benzocaine, Orajel, Plavix, Marinol, TPN, Dilaudid, sliding scale of insulin, Milk of Magnesia, Zofran, Tramadol, IV Lopressor. On examination, patient's vitals, temperature 99 to 100, heart rate 100 to 140, respiratory rate 20, blood pressure 115/83, saturating at 95% on 3 L of nasal cannula. GENERAL EXAMINATION: Patient is lying in bed. He is awake, does not appear to be in any acute distress. He is noncommunicative. Just mumbles a few words here and there. Neck is short, no palpable masses. RESPIRATORY: Examination of the chest, he has scar where the Mediport was placed. No signs of active infection, bilateral breath sounds are diminished at the lower lung bases. CARDIOVASCULAR: S1, S2 heard, tachycardic. Abdomen is soft, distended, nontender. Bowel sounds are positive. EXTREMITIES: Patient has bilateral pitting edema up to the mid-thigh region. MOBILE HEAVY EQUIPMENT OPERATOR: He is awake, but not oriented to time or place. Patient's labs: White count of 5.4, hemoglobin 10.8, platelets of 126, sodium 139, potassium 3.1, chloride 126, bicarb 20, BUN 25, creatinine 0.88. ASSESSMENT AND PLAN: 1. Acute severe metabolic encephalopathy, a competent of centra nervous system involvement could not be excluded. Patient is recently diagnosed with B-cell lymphoma and the plan was to obtain an ( ) but as his PT, INR was high, it has been put on hold and he is getting vitamin K. 2. Severe protein calorie malnutrition due to decreased p.o. intake. 3. Volume overload secondary to third spacing due to severe hypoalbuminemia. 4. Hyponatremia due to free water deficit. 5. Normocytic anemia most likely secondary to his malignancy. 6. Diffuse large cell B-cell lymphoma newly diagnosed. 7. Coronary artery disease with history of stenting. 8. Mild persistent asthma. 9. Hypertension. PLAN: Patient is currently unable to swallow, so he is n.p.o. All his oral medications are on hold, but he is becoming tachycardic, so Cardiology was consulted and the plan was to start him on IV Lopressor, so he is being was transferred to [facility] care. Patient's nutritional status is very poor so he has been started on TPN to see if he would qualify for chemotherapy for his B-cell lymphoma. Had a discussion with the family members today, with his of and son at the bedside and as per the discussion with them, the patient has declined drastically over the past 3 to 4 weeks. He has been refusing to eat and his mentation has also declined. So discussed with the family members about the poor prognosis and also discussed about the CODE STATUS. Currently, the patient is a NO CODE. Overall prognosis is very poor, family members are aware of his situation. Will also have a discussion with other consultants who are on board tomorrow. More than 50 minutes has been for the encounter, including more than 30 minutes with the family discussing his condition and CODE STATUS. JOSE
[2017-01-26 16:54] LABS: Glucose,Whole Blood 166 mg/dL (75-99)
[2017-01-26] MEDS ORDERED: PHYTONADIONE 5 MG in SODIUM CHLORIDE 0.9% 50 ML IVPB STA (16:55)
[2017-01-26 20:49] LABS: Glucose,Whole Blood 159 mg/dL (75-99)
[2017-01-26] MEDS: ATORVASTATIN 80 MG TAB PO SCH (21:30)
--- NOTE | 2017-01-26 22:51 | PN ---
This 66-year-old gentleman who has been B-cell lymphoma currently is admitted with altered sensorium, appears dehydrated and has sinus tachycardia. He was transferred upstairs because he is on IV Lopressor. At the time of my evaluation, he is essentially obtunded. Responds to name, but I cannot have any meaningful conversation. Heart rate is 110 to 120s. Blood pressure is normal. Chest exam reveals diminished air entry at the bases. Heart exam reveals first and second heart sound with systolic murmur at the apex. ABDOMEN: Soft. Exam of extremities did not reveal any edema. He is currently on Lopressor 2.5 mg q.6 hours, antibiotics and he currently hospice is being considered. ASSESSMENT: Sinus tachycardia because of the underlying medical problems. Continue the IV Lopressor. Prognosis poor.
[2017-01-27 00:06] LABS: Glucose,Whole Blood 474 mg/dL (75-99)
--- NOTE | 2017-01-27 00:32 | P.PN ---
Subjective Principal diagnosis: Diffuse large Bcell lymphoma The pt has remained quite obtunded, with nothing by mouth currently. He was transferred to telemetry due to tachycardia and hypotension. These are improved Objective - Vital Signs Vital signs: Vital Signs Temp 99.4 F 01/26/17 16:00 Pulse 133 H 01/26/17 16:00 Resp 22 01/26/17 16:00 BP 97/52 01/26/17 16:00 Pulse Ox 92 L 01/26/17 16:00 Intake & Output 01/26/17 01/26/17 01/27/17 06:59 18:59 06:59 Intake Total 2278.083 1114.25 Output Total 200 Balance 2078.083 1114.25 Weight 122 kg 122 kg Intake: IV 1250 60 .9 @ 20 60 Fat Emulsion 20% 250 ml @ 250 21 mls/hr IV Q24H [facility] Rx #:[id number] Mvi, Adult No.4 with Vit 1000 K 10 ml Trace (Conc-1Ml/ Dose) 1 ml In Amino Acid 5%-D25w+Lytes*E* 1,000 ml @ 65 mls/hr IV .[id number] [facility] Rx#:[id number] Intake, IV Titration 9971.211 2629.25 Amount Piperacillin-Tazobactam 3 50 .375 gm In Dextrose/Water 1 50ml.bag @ 12.5 mls/hr IVPB Q8HR [facility] Rx#: [id number] Potassium Acetate 15 meq 1691.968 2888.25 Magnesium Sulfate 5 meq Calcium Gluconate 850 mg Potassium Phosphate 20 mmol Mvi, Adult No.4 with Vit K 10 ml Trace (Conc- 1Ml/Dose) 1 ml In Amino Acid 5%-D25w 1,000 ml @ 65 mls/hr IV .[id number] [facility] Rx#:[id number] Oral 0 Output: Urine 200 Other: Voiding Method Incontinent Incontinent # Voids 3 1 1 - Constitutional General appearance: Present: no acute distress - EENT Eyes: Present: PERRLA - Respiratory Respiratory: bilateral: diminished - Cardiovascular Rhythm: regular Heart sounds: normal: S1, S2 - Gastrointestinal General gastrointestinal: Present: normal bowel sounds, soft - Musculoskeletal Musculoskeletal: Present: generalized weakness, strength equal bilaterally - Psychiatric Psychiatric Comment(s): Obtunded. Not arousable currently - Labs CBC & Chem 7: 01/26/17 06:10 01/26/17 17:58 Labs: Abnormal Lab Results - Last 24 Hours (Table) 01/26/17 01/26/17 01/26/17 Range/Units 00:26 04:22 06:10 RBC (4.30-5.90) m/uL Hgb (13.0-17.5) gm/dL Hct (39.0-53.0) % MCHC (31.0-37.0) g/dL RDW (11.5-15.5) % Plt Count (150-450) k/uL Lymphocytes # (1.0-4.8) k/uL PT 15.6 H (9.0-12.0) sec Sodium (137-145) mmol/L Chloride (98-107) mmol/L Carbon Dioxide (22-30) mmol/L BUN (9-20) mg/dL Glucose (74-99) mg/dL POC Glucose (mg/dL) 167 H 156 H (75-99) mg/dL Plasma Lactic Acid Ronnie (0.7-2.0) mmol/L Total Protein (6.3-8.2) g/dL Albumin (3.5-5.0) g/dL 01/26/17 01/26/17 01/26/17 Range/Units 06:10 06:10 06:10 RBC 3.69 L (4.30-5.90) m/uL Hgb 10.0 L (13.0-17.5) gm/dL Hct 33.1 L (39.0-53.0) % MCHC 30.3 L (31.0-37.0) g/dL RDW 18.3 H (11.5-15.5) % Plt Count 108 L (150-450) k/uL Lymphocytes # 0.4 L (1.0-4.8) k/uL PT (9.0-12.0) sec Sodium 156 H (137-145) mmol/L Chloride 125 H* (98-107) mmol/L Carbon Dioxide 20 L (22-30) mmol/L BUN 31 H (9-20) mg/dL Glucose 158 H (74-99) mg/dL POC Glucose (mg/dL) (75-99) mg/dL Plasma Lactic Acid Ronnie 4.0 H* (0.7-2.0) mmol/L Total Protein 4.6 L (6.3-8.2) g/dL Albumin 2.0 L (3.5-5.0) g/dL 01/26/17 01/26/17 01/26/17 Range/Units 06:15 11:41 12:15 RBC (4.30-5.90) m/uL Hgb (13.0-17.5) gm/dL Hct (39.0-53.0) % MCHC (31.0-37.0) g/dL RDW (11.5-15.5) % Plt Count (150-450) k/uL Lymphocytes # (1.0-4.8) k/uL PT (9.0-12.0) sec Sodium (137-145) mmol/L Chloride (98-107) mmol/L Carbon Dioxide (22-30) mmol/L BUN (9-20) mg/dL Glucose (74-99) mg/dL POC Glucose (mg/dL) 151 H 183 H (75-99) mg/dL Plasma Lactic Acid Ronnie 3.2 H* (0.7-2.0) mmol/L Total Protein (6.3-8.2) g/dL Albumin (3.5-5.0) g/dL 01/26/17 01/26/17 01/26/17 Range/Units 16:51 17:58 18:35 RBC (4.30-5.90) m/uL Hgb (13.0-17.5) gm/dL Hct (39.0-53.0) % MCHC (31.0-37.0) g/dL RDW (11.5-15.5) % Plt Count (150-450) k/uL Lymphocytes # (1.0-4.8) k/uL PT (9.0-12.0) sec Sodium 156 H (137-145) mmol/L Chloride (98-107) mmol/L Carbon Dioxide (22-30) mmol/L BUN (9-20) mg/dL Glucose (74-99) mg/dL POC Glucose (mg/dL) 166 H (75-99) mg/dL Plasma Lactic Acid Ronnie 3.3 H* (0.7-2.0) mmol/L Total Protein (6.3-8.2) g/dL Albumin (3.5-5.0) g/dL 01/26/17 01/27/17 Range/Units 20:47 00:04 RBC (4.30-5.90) m/uL Hgb (13.0-17.5) gm/dL Hct (39.0-53.0) % MCHC (31.0-37.0) g/dL RDW (11.5-15.5) % Plt Count (150-450) k/uL Lymphocytes # (1.0-4.8) k/uL PT (9.0-12.0) sec Sodium (137-145) mmol/L Chloride (98-107) mmol/L Carbon Dioxide (22-30) mmol/L BUN (9-20) mg/dL Glucose (74-99) mg/dL POC Glucose (mg/dL) 159 H 474 H (75-99) mg/dL Plasma Lactic Acid Ronnie (0.7-2.0) mmol/L Total Protein (6.3-8.2) g/dL Albumin (3.5-5.0) g/dL Assessment and Plan (1) Mental status alteration Narrative/Plan: The pt is even less responsive currently. The etiology is difficult to estimate. His Na + is still very high. Case was extensively d/w Shelly Cordova and Dr Boss from Nephrology. The pt has been started on D5W, and improvement in Na + is expected. We will monitor to see if his MS improves with the same - To complete w/u a LP was requested, check for any leptomeningeal involvement. Await results Status: Acute (2) Diffuse large B cell lymphoma Narrative/Plan: Once LP is done, I plan to give a bolus of steroids, especially if MS changes persist despite drop in Na+. If LP shows leptomeningeal involvement, prognosis would be very poor.If LP is negative, we will have to consider cycle 1 of chemo inpt, depending on the pt's status Status: Acute
[2017-01-27] MEDS ORDERED: INSULIN REGULAR BOLUS (FROM DRIP BAG) IV ONE (00:34)
[2017-01-27] MEDS ORDERED: INSULIN REGULAR 100 UNIT in SODIUM CHLORIDE 0.9% 100 ML IV SCH (00:45)
[2017-01-27] MEDS: PIPERACILLIN-TAZOBACTAM 3.375 GM in DEXTROSE/WATER 1 50ML.BAG IVPB SCH ×2 (01:02→07:56)
[2017-01-27 01:39] LABS: Glucose,Whole Blood 222 mg/dL (75-99)
[2017-01-27 03:53] LABS: Glucose,Whole Blood 120 mg/dL (75-99)
[2017-01-27] MEDS: ATROPINE OPHTH SOLN 1% 5ML BTL SUBLINGUAL PRN (04:17)
[2017-01-27] MEDS: HYDROmorphone 1 MG/ML 1 ML SYRINGE IVP PRN ×4 (04:38→21:12)
[2017-01-27] MEDS: ACETAMINOPHEN SUPPOSITORY 650 MG SUPP RECTAL PRN (04:54)
[2017-01-27 04:55] LABS: Glucose,Whole Blood 133 mg/dL (75-99)
--- NOTE | 2017-01-27 05:37 | PN ---
DATE OF SERVICE: 01/26/2017 INTERVAL HISTORY: Mr. Rodriguez is a 66-year-old who was recently diagnosed with B cell lymphoma and multiple comorbid medical conditions admitted to the hospital due to change in his mentation that has been going on for the past couple of months. Patient was encephalopathic at the time of admission and had severe electrolyte disturbances. He has been getting IV fluids and Nephrology is currently on board adjusting his fluids, but there might be a CAN BANDER OPERATOR component to his altered mental status changes due to his recent T-cell lymphoma diagnosis. The patient deteriorated over the past 3 weeks as per the family members opinion. For the past couple of days, patient has been not speaking and has not been swallowing.. He is kept n.p.o. Had a discussion with family members who opted him to be a NO CODE. Review of systems could not be done as the patient cannot communicate. Patient's medications have been reviewed. On examination, patient's vital signs: Temperature 100.1, heart rate around 120, respiratory rate is 22, blood pressure 100/53, saturating at 92 5 on 4 L of nasal cannula. GENERAL EXAMINATION: Patient is lying in bed. He responds only to painful stimuli. Neck is short. No palpable masses. RESPIRATORY: Bilateral breath sounds are positive. Patient has a scar on the right side of the chest where Mediport was placed. CARDIOVASCULAR: S1 and S2 heard. Tachycardic. GI: Abdomen is soft, distended, nontender. Bowel sounds are positive. EXTREMITIES: The patient has bilateral pitting edema up to the mid thigh regions. THE PATIENT'S LABS: White count of 4.7, hemoglobin is 10, platelets of 108and. Sodium 156, potassium 3.5, chloride 125, bicarb 20, BUN 31, creatinine 1. ASSESSMENT AND PLAN: 1. Acute severe metabolic encephalopathy a component of CAN BANDER OPERATOR involvement could not be excluded. 2. Recently diagnosed B-cell lymphoma. 3. Severe protein calorie malnutrition. 4. Volume overload due to third spacing due to severe hypoalbuminemia. 5. Hypernatremia. 6. Coronary artery disease with history of stenting. 7. Mild persistent asthma. 8. Hypertension. PLAN: The patient is currently only responsive to painful stimuli. Will continue with the current medication regimen. As the patient is showing signs of sepsis he has been started on Zosyn. Patient's daughter is at the bedside today. I discussed the treatment plan with her in detail. As per the discussion with his and son yesterday, he wishes to be a NO CODE, but as of yesterday the patient's family members were still thinking about hospice care, but they did not come up with the decision. Daughter states that she would have a discussion with the rest of her family members and eventually make a decision whether the patient has to be in hospice care. Overall prognosis is very poor. Further recommendations depending on the progress of the patient and also family members decision.
[2017-01-27 05:50] LABS: Glucose,Whole Blood 136 mg/dL (75-99)
[2017-01-27] MEDS: METOPROLOL TARTRATE 5 MG/5 ML VIAL IVP SCH ×2 (06:14→11:46)
[2017-01-27 06:29] LABS: INR 1.6 (<1.1); Prothrombin Time 15.7 sec (9.0-12.0)
[2017-01-27 06:36] LABS: Anion Gap 10 mmol/L; Blood Urea Nitrogen 35 mg/dL (9-20); Calcium 9.5 mg/dL (8.4-10.2); Carbon Dioxide 22 mmol/L (22-30); Glucose 134 mg/dL (74-99); Magnesium 2.3 mg/dL (1.6-2.3); Non-African American GFR(MDRD) >60 (>60 ml/min/1.73 sqM); Phosphorous 2.5 mg/dL (2.5-4.5); Potassium 3.5 mmol/L (3.5-5.1); Sodium 153 mmol/L (137-145)
[2017-01-27 06:44] LABS: Chloride 121 mmol/L (98-107)
[2017-01-27] MEDS ORDERED: INSULIN LISPRO (humaLOG) 300 UNIT/3 ML VIAL SQ SCH (07:30)
[2017-01-27] MEDS: DEXTROSE 5% IN WATER 1,000 ML IV SCH ×2 (07:43→10:36)
[2017-01-27] MEDS: INSULIN LISPRO (humaLOG) 300 UNIT/3 ML VIAL SQ SCH (07:43)
[2017-01-27] MEDS: CLOPIDOGREL 75 MG TAB PO SCH (07:56)
[2017-01-27] MEDS: traMADol 50 MG TAB PO SCH ×2 (07:56→11:59)
[2017-01-27 08:01] LABS: Glucose,Whole Blood 152 mg/dL (75-99)
[2017-01-27] MEDS ORDERED: PHYTONADIONE 5 MG in SODIUM CHLORIDE 0.9% 50 ML IVPB STA (08:30)
[2017-01-27] MEDS: IPRATROPIUM-ALBUTEROL 3 ML NEB INHALATION SCH ×3 (08:35→19:34)
--- NOTE | 2017-01-27 09:19 | P.PN ---
Subjective Patient is seen in follow-up for hypernatremia. Sodium level is 156 yesterday and is down to 153 this morning. Patient is extremely lethargic and does not respond to verbal commands. He is nonoliguric. He is maintained on TPN as his oral intake is extremely poor. Vital signs are stable. General: The patient appeared well nourished and normally developed. HEENT: Head exam is unremarkable. Neck is without jugular venous distension. LUNGS: Lungs are clear to auscultation and percussion. Breath sounds decreased. HEART: Rate and Rhythm are regular. First and second heart sounds normal. No murmurs, rubs or gallops. ABDOMEN: Abdominal exam reveals normal bowel sounds. Non-tender and non- distended. No evidence of peritonitis. EXTREMITITES: 1+ edema. Objective - Vital Signs Vital signs: Vital Signs Temp 100.4 F H 01/27/17 08:00 Pulse 116 H 01/27/17 08:47 Resp 22 01/27/17 08:00 BP 91/53 01/27/17 08:00 Pulse Ox 91 L 01/27/17 08:00 Intake & Output 01/26/17 01/27/17 01/27/17 18:59 06:59 18:59 Intake Total 1114.25 2054.342 2.087 Balance 1114.25 2054.342 2.087 Weight 122 kg 127.5 kg Intake: IV 60 490 .9 @ 20 60 240 Fat Emulsion 20% 250 ml @ 250 21 mls/hr IV Q24H [facility] Rx #:[id number] Intake, IV Titration 1054.25 1564.342 2.087 Amount Dextrose 5% in Water 1, 1500 000 ml @ 125 mls/hr IV . Q8H [facility] Rx#:[id number] Insulin Regular 100 unit 14.342 2.087 In Sodium Chloride 0.9% 100 ml @ Titrate IV .Q0M [facility] Rx#:[id number] Piperacillin-Tazobactam 3 50 50 .375 gm In Dextrose/Water 1 50ml.bag @ 12.5 mls/hr IVPB Q8HR [facility] Rx#: [id number] Potassium Acetate 15 meq 1004.25 Magnesium Sulfate 5 meq Calcium Gluconate 850 mg Potassium Phosphate 20 mmol Mvi, Adult No.4 with Vit K 10 ml Trace (Conc- 1Ml/Dose) 1 ml In Amino Acid 5%-D25w 1,000 ml @ 65 mls/hr IV .[id number] [facility] Rx#:[id number] Other: Voiding Method Incontinent Incontinent Incontinent # Voids 1 3 - Labs CBC & Chem 7: 01/26/17 06:10 01/27/17 05:46 Labs: Abnormal Lab Results - Last 24 Hours (Table) 01/26/17 01/26/17 01/26/17 Range/Units 11:41 12:15 16:51 PT (9.0-12.0) sec Sodium (137-145) mmol/L Chloride (98-107) mmol/L BUN (9-20) mg/dL Glucose (74-99) mg/dL POC Glucose (mg/dL) 183 H 166 H (75-99) mg/dL Plasma Lactic Acid Ronnie 3.2 H* (0.7-2.0) mmol/L 01/26/17 01/26/17 01/26/17 Range/Units 17:58 18:35 20:47 PT (9.0-12.0) sec Sodium 156 H (137-145) mmol/L Chloride (98-107) mmol/L BUN (9-20) mg/dL Glucose (74-99) mg/dL POC Glucose (mg/dL) 159 H (75-99) mg/dL Plasma Lactic Acid Ronnie 3.3 H* (0.7-2.0) mmol/L 01/27/17 01/27/17 01/27/17 Range/Units 00:04 01:37 03:51 PT (9.0-12.0) sec Sodium (137-145) mmol/L Chloride (98-107) mmol/L BUN (9-20) mg/dL Glucose (74-99) mg/dL POC Glucose (mg/dL) 474 H 222 H 120 H (75-99) mg/dL Plasma Lactic Acid Ronnie (0.7-2.0) mmol/L 01/27/17 01/27/17 01/27/17 Range/Units 04:44 05:46 05:46 PT 15.7 H (9.0-12.0) sec Sodium 153 H (137-145) mmol/L Chloride 121 H* (98-107) mmol/L BUN 35 H (9-20) mg/dL Glucose 134 H (74-99) mg/dL POC Glucose (mg/dL) 133 H (75-99) mg/dL Plasma Lactic Acid Ronnie (0.7-2.0) mmol/L 01/27/17 01/27/17 Range/Units 05:49 08:00 PT (9.0-12.0) sec Sodium (137-145) mmol/L Chloride (98-107) mmol/L BUN (9-20) mg/dL Glucose (74-99) mg/dL POC Glucose (mg/dL) 136 H 152 H (75-99) mg/dL Plasma Lactic Acid Ronnie (0.7-2.0) mmol/L Assessment and Plan Plan: Assessment: #1. Hypernatremia secondary to severe dehydration due to lack of oral water intake. Sodium level improved to 153 this morning. His total water deficit is more than 6 L. #2. Hyperchloremic metabolic acidosis with lactic acidosis present as well. Improved. #3. B-cell lymphoma. Plan: Continue D5W to be run at 125 mL an hour. Repeat sodium level at 6 PM today. Bolus with 0.9 saline if worsening of hemodynamic status. Oncology following. Await LP results. Poor prognosis.
[2017-01-27 10:15] LABS: Glucose,Whole Blood 157 mg/dL (75-99)
[2017-01-27] MEDS: CALCIUM GLUCONATE IV SCH ×7 (10:42)
[2017-01-27] MEDS: POTASSIUM ACETATE IV SCH ×7 (10:42)
[2017-01-27] MEDS: MAGNESIUM SULFATE IV SCH ×7 (10:42)
[2017-01-27] MEDS: [UNRECOGNIZED DRUG - OTHER] IV SCH ×7 (10:42)
[2017-01-27] MEDS: DRONABINOL 2.5 MG CAP PO SCH (11:29)
[2017-01-27 12:19] LABS: Glucose,Whole Blood 167 mg/dL (75-99)
[2017-01-27] MEDS ORDERED: FUROSEMIDE 10 MG/ML 4 ML VIAL IV STA (14:17)
--- NOTE | 2017-01-27 17:48 | PN ---
DATE OF SERVICE: 01/28/2016 PRESENTING COMPLAINT: Lethargic. INTERVAL HISTORY: This is a patient with a diagnosis of B-cell lymphoma who was admitted not feeling well; weak, tired, decreased oral intake; had been put on TPN, lipids. Patient was given vitamin K to decrease his pro times. He could a lumbar puncture to see SOFTWARE PROGRAM MANAGER involvement. This morning the nurse called me; the patient's had decided to hold back any further intervention and did not want a lumbar puncture done. Patient is lethargic, though he gets up and talks a little bit, then dozes off easily. He remains on TPN and lipids. REVIEW OF SYSTEMS: Difficult to obtain, as patient is rather lethargic. Current medications when reviewed included TPN, lipids. On examination, temperature is 98.9, pulse 115, respiration 20, blood pressure 90/53, pulse ox 90% on 5 L. GENERAL APPEARANCE: Lying in bed. Lethargic but arousable. EYES: Pupils equal. Conjunctivae pale. NECK: JVD unable to assess. Mass not palpable. RESPIRATORY: Effort increased. LUNGS: Distant breath sounds. CARDIOVASCULAR: First and second sounds present. Edema is present. ABDOMEN: ( ) tenderness. Soft. Liver and spleen not palpable. PSYCHIATRY: Patient is lethargic but arousable. Patient's aide said that he did speak a bit yesterday. INVESTIGATIONS: Sodium 153, potassium 3.5, BUN 35, creatinine 1.20. Pro time 15.7. ASSESSMENT: 1. Acute severe metabolic encephalopathy with acute delirium from severe electrolyte abnormalities, slow to respond, present since admission. 2. Moderate protein-calorie malnutrition with decreased oral intake causing severe edema and third spacing, present on admission. 3. Hypoalbuminemia from poor oral intake. 4. Hypercalcemia from dehydration. 5. Hypernatremia from free water deficit. 6. Normocytic anemia, likely related to underlying malignancy. 7. Diffuse B-cell lymphoma. 8. Coronary artery disease with prior history of stent. 9. Gastroesophageal reflux disease. 10. Mild persistent asthma. 11. Essential hypertension. PLAN: Patient is doing poorly. Did talk to his , and she does not wish to proceed anymore. In view of that, I am going to stop all patient's medications except to keep him comfortable. As per patient's , A Hospice is being consulted. Patient will probably go home with comfort care. ADVANCED CARE PLANNING: Care was discussed in a meeting with the patient and daughter and . Did express overall poor prognosis. Really did not want to go through much. She wants to proceed with hospice. Per their wish, [facility] is being consulted. We talked about stopping all nutrition. We talked about pain control. Wanted to take the patient home, and a lot of family support is present. She was concerned about the finances about the hospice. Will let the hospice discuss the same. Also spoke to the hospice regarding the same later on. Also spoke to the nurse. Nurse was present for the meeting. Total time for this meeting was about 25 minutes in addition to the progress note.
[2017-01-27] MEDS ORDERED: DRY MOUTH SPRAY 44.3 SPRAY/44.3 ML SPRAY MUCOUS MEM PRN (20:58)
[2017-01-27 22:57] VITALS: BP 96/52
[2017-01-28] MEDS: HYDROmorphone 1 MG/ML 1 ML SYRINGE IVP PRN ×4 (01:16→12:31)
[2017-01-28 04:50] VITALS: RESP 24
[2017-01-28] MEDS: IPRATROPIUM-ALBUTEROL 3 ML NEB INHALATION SCH ×2 (07:50→13:18)
[2017-01-28 09:30] VITALS: TEMP 99.8
[2017-01-28 13:27] VITALS: PULSE 100
--- NOTE | 2017-01-29 12:08 | DS ---
DATE OF ADMISSION: 01/21/2017 DATE OF DISCHARGE: 01/28/2017 FINAL DIAGNOSES: 1. Acute severe metabolic encephalopathy from acute delirium and acute delirium from severe electrolyte abnormalities, present on admission. 2. Moderate protein calorie malnutrition from decreased oral intake causing severe edema and third spacing, present at admission. 3. Hypoalbuminemia from poor oral intake. 4. Hypercalcemia from dehydration. 5. Hypernatremia from free water deficit. 6. Normocytic anemia, likely related to underlying malignancy. 7. Diffuse B cell lymphoma untreated. 8. Coronary artery disease with prior history of stent. 9. Gastroesophageal reflux disease. 10. Mild persistent asthma. 11. Essential hypertension. Patient recently diagnosed with diffuse B cell lymphoma, admitted with metabolic encephalopathy, continued to deteriorate. All attempts to improve his physical status has failed including getting TPN and lipids. decided after discussion to proceed with hospice care. Patient today is minimally responsive, getting some pain medications. I spoke at length to the hospice home care and spoke to the on the phone today. Patient's wanted the patient to come home as the patient wants to at home, hence, ( ) is being arrange. She did also understand that it is entirely possible that the patient may on the way, but we cannot prognosticate further than that. All pain medications, etc. are being arranged. On examination, lethargic but arousable. LUNGS: Decreased breath sounds. DISCHARGE MEDICATIONS: 1. Ativan 1 mg q.4 p.r.n. for anxiety. 2. Roxanol 20 mg/mL 5 mg p.o. q.4 p.r.n. for pain. 3. Scopolamine patch q.72 hours. ( ) home for comfort. DISPOSITION: Home with [facility]. Discharge planning more than 35 minutes.
== END 2017-01-28 13:48 | disposition hospice, home (50) | DRG 640 ==
LOC: EC 13:39 → 5MS5E 18:48 → 5ONC 19:00 → 6SEL 01-25 19:02
PROVIDERS: ADMIT Hospitalist; ATTEND Hospitalist
PROC: 3E0336Z Introduction of Nutritional Substance into Peripheral Vein, Percutaneous Approach (ICD-10-PCS; 2017-01-23)
PROC: 05H533Z Insertion of Infusion Device into Right Subclavian Vein, Percutaneous Approach (ICD-10-PCS; 2017-01-23)
PROC: 0JH60WZ Insertion of Totally Implantable Vascular Access Device into Chest Subcutaneous Tissue and Fascia, Open Approach (ICD-10-PCS; principal; 2017-01-23 10:25)
DX: E87.0 Hyperosmolality and hypernatremia (principal); G93.41 Metabolic encephalopathy; C83.30 Diffuse large B-cell lymphoma, unspecified site; E44.0 Moderate protein-calorie malnutrition; E87.2 Acidosis; E86.0 Dehydration; I95.9 Hypotension, unspecified; R13.10 Dysphagia, unspecified; J44.9 Chronic obstructive pulmonary disease, unspecified; E83.52 Hypercalcemia; E87.8 Other disorders of electrolyte and fluid balance, not elsewhere classified; D63.0 Anemia in neoplastic disease; E78.5 Hyperlipidemia, unspecified; E87.70 Fluid overload, unspecified; G47.30 Sleep apnea, unspecified; I10 Essential (primary) hypertension; I25.10 Atherosclerotic heart disease of native coronary artery without angina pectoris; R32 Unspecified urinary incontinence; I25.2 Old myocardial infarction; J45.30 Mild persistent asthma, uncomplicated; K21.9 Gastro-esophageal reflux disease without esophagitis; R79.1 Abnormal coagulation profile; E66.9 Obesity, unspecified; F32.9 Major depressive disorder, single episode, unspecified; R01.1 Cardiac murmur, unspecified; R41.0 Disorientation, unspecified; Z68.41 Body mass index [BMI] 40.0-44.9, adult; Z74.01 Bed confinement status; Z79.02 Long term (current) use of antithrombotics/antiplatelets; Z79.82 Long term (current) use of aspirin; Z79.899 Other long term (current) drug therapy; Z87.891 Personal history of nicotine dependence; Z95.5 Presence of coronary angioplasty implant and graft; Z88.1 Allergy status to other antibiotic agents; Z88.2 Allergy status to sulfonamides; Z82.49 Family history of ischemic heart disease and other diseases of the circulatory system
CPT/HCPCS: 36415; 70460; 71010; 71020; 80048; 80053; 80306; 81003; 82040; 82330; 82550; 82553; 83605; 83735; 84100; 84295; 84478; 84484; 85025; 85610; 85730; 87040; 93005; 94640; 94760; 96361; 96374; 99285